=== PATIENT | female | born 1965 | race Caucasian/White ===

== ENCOUNTER 2017-11-16 16:37 | Inpatient (IN) | payer BC, OTHER ==
[~2017-11-16] VITALS: Ht 152.4 cm; Wt 76.2 kg
[~2017-11-16 16:37] MED LIST: CLC150 PO; IPRA1AER2 INH; LISI-461 PO; TPRSR/25 PO
[2017-11-16] MEDS ORDERED: ENOXAPARIN 1 MG/KG SQ SCH (17:00)
[2017-11-16] MEDS ORDERED: ALUMINUM/MAGNESIUM/SIMETH (MAALOX MAX) 30 ML UDC PO PRN (17:00)
[2017-11-16] MEDS ORDERED: ONDANSETRON INJ 2 MG/ML 2 ML VIAL IV PRN (17:00)
[2017-11-16] MEDS ORDERED: ACETAMINOPHEN 325 MG TAB PO PRN (17:00)
[2017-11-16] MEDS ORDERED: MAGNESIUM HYDROXIDE SUSP 30 ML UDC PO PRN (17:00)
[2017-11-16] MEDS ORDERED: NITROGLYCERIN 0.4 MG SL PER TAB CHARGE SL PRN (17:00)
[2017-11-16] MEDS ORDERED: POLYETHYLENE (MIRALAX) 17 GM PACK PO PRN (17:00)
[2017-11-16 17:29] VITALS: BP 134/71; PULSE 92; TEMP 36.5; O2SAT 93
[2017-11-16] MEDS ORDERED: PRED10TA PO (17:29)
[2017-11-16] MEDS ORDERED: IPRASOL4 INH (17:29)
[2017-11-16] MEDS ORDERED: SPRIN INH (17:29)
[2017-11-16] MEDS ORDERED: ADVIN25/60 INH (17:29)
[2017-11-16] MEDS ORDERED: AZIT250T PO (17:29)
[2017-11-16] MEDS ORDERED: PATIENT'S HEIGHT AND/OR WEIGHT NEEDED SCH (17:30)
[2017-11-16 17:32] VITALS: O2SAT 93
--- NOTE | 2017-11-16 17:35 | DIAGNOSTIC IMAGING REPORT ---
CHEST ONE VIEW PORTABLE CLINICAL HISTORY: SHORTNESS OF BREATH dyspnea COMPARISON STUDY: 12/10/2014 FINDINGS: The bones soft tissues and hemidiaphragms are normal. The cardiomediastinal silhouette is normal. The lungs are clear. The pulmonary vasculature is normal. IMPRESSION: Negative chest. The above report was generated using voice recognition software. It may contain grammatical, syntax or spelling errors. Electronically signed by: Tom Marcelo M.D. 11/16/2017 5:34 PM Dictated Date/Time: 11/16/2017 5:34 PM
[2017-11-16 17:38] VITALS: BP 134/71; PULSE 92; TEMP 36.5; Ht 152.4 cm; Wt 76.2 kg
--- NOTE | 2017-11-16 17:49 | History and Physical ---
History & Physical Date & Time of Service: November 16, 2017 at 17:31 Chief Complaint: Pulmonary Embolism Primary Care Physician: Pipo Baird III, M.D. History of Present Illness Source: patient, clinic records, hospital records Patient is a 52-year-old female with the PMH of COPD, tobacco use disorder, HTN , calcified granuloma on RUL and other medical problems listed below who presents from [facility]'s clinic with an acute pulmonary embolism. Patient went to [facility] acute care yesterday with reports of dyspnea on exertion with associated chest tightness and lightheadedness x 1.5 weeks. Has also had intermittent swelling of R cervical neck for the last few months. Has been using Spiriva, Advair and Combivent inhalers at home but was still experiencing dyspnea with any form of exertion. Was diagnosed with a COPD exacerbation and was given a DuoNeb and Decadron injection in the office. Was prescribed a Z pack and prednisone taper. Was ordered a CT neck and chest which were performed today, showing pulmonary emboli involving segmental and subsegmental branches supplying the RUL. Denies fever, chills, headache, near-syncope, confusion, visual changes, palpitations, abdominal pain, nausea, vomiting, dysuria, diarrhea, constipation or LE swelling. No personal history of DVT/PE. Is not an oral contraceptive. Denies any recent flights or long car trips. 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 Patient is interested in NOACs for continued treatment of PE. 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 (2) Cervical adenopathy Status: Chronic (3) COPD (chronic obstructive pulmonary disease) Status: Chronic (4) HTN (hypertension) Status: Chronic (5) Tobacco use disorder Status: Chronic Surgical Problems: (1) History of hysterectomy Status: Resolved Family History Cancer Diabetes mellitus Gallbladder disease Hypertension Kidney disease Lung disease Seizures Social History Smoking Status: Current Every Day Smoker (1-2 cigarettes daily ) Alcohol Use: socially (1-2 glasses of wine/night ) Housing status: lives with family Occupational Status: employed Immunizations History of Influenza Vaccine: No History of Tetanus Vaccine?: Yes History of Pneumococcal: Yes Pneumococcal Date: Jul 15, 2009 History of Hepatitis B Vaccine: Yes Allergies Coded Allergies: Latex1 -Allergic Contact Dermititis (Verified Allergy, Unknown, 12/05/14) Codeine (Verified Adverse Reaction, Mild, N/V, HEARS VIOCES, 12/05/14) NAUSEA/VOMITING; HEARS VOICES Home Medications Scheduled Azithromycin (Zithromax), 250 MG PO HS Fluticasone Prop/Salmeterol (Advair Diskus 250/50 60 Dose), 1 PUFF INH BID Lisinopril (Lisinopril), 10 MG PO DAILY Metoprolol Succinate (Metoprolol Succinate ER), 25 MG PO DAILY Prednisone Tab (Prednisone), 10 MG PO UD Tiotropium [place] (Spiriva Handihaler), 1 CAP INH DAILY Scheduled PRN Ipratropium-Albuterol (Combivent Respimat), 1 PUFF INH QID PRN for SOB/Wheezing Ipratropium-Albuterol (Duoneb), 1 TREATMENT INH Q4H PRN for SOB/Wheezing Review of Systems Ten systems reviewed and negative except as noted in the HPI. Physical Exam Vital Signs Date Time Temp Pulse Resp B/P (MAP) Pulse Ox O2 Delivery O2 Flow Rate FiO2 11/16/17 17:29 36.5 92 20 134/71 (92) 93 Room Air General Appearance: WD/WN, no apparent distress, + pertinent finding (Sitting upright in bed, conversational. ) Head: normocephalic, atraumatic Eyes: normal inspection, PERRL, sclerae normal ENT: normal ENT inspection, hearing grossly normal, pharynx normal Neck: supple, thyroid normal, trachea midline, + pertinent finding (R cervical adenopathy ) Respiratory/Chest: chest non-tender, lungs clear, normal breath sounds, no respiratory distress, no accessory muscle use Cardiovascular: regular rate, rhythm, no murmur, normal peripheral pulses Abdomen/GI: non tender, soft, no organomegaly, no pulsatile mass Back: normal inspection, no CVA tenderness Extremities/Musculoskelatal: normal inspection, no calf tenderness, no pedal edema Neurologic/Psych: no motor/sensory deficits, alert, normal mood/affect, oriented x 3 Skin: normal color, warm/dry, no rash Diagnostics Laboratory Results Results Past 24 Hours Test 11/16/17 17:22 Range/Units Diagnostic Radiology CXR: IMPRESSION: Negative chest. Out-patient CT chest with contrast (5/8/18): Findings consistent with pulmonary emboli involving segmental and subsegmental branches supplying the RUL. EKG Normal sinus rhythm. Early repolarization No change from prior EKG Impression Assessment and Plan Patient is a 52-year-old female with the PMH of COPD, tobacco use disorder, HTN , calcified granuloma on RUL and other medical problems listed below who presents from [facility] with an acute pulmonary embolism. Acute PE: -Dyspnea on exertion, chest tightness x 1.5 weeks -EKG without acute changes, troponin pending -Out-patient CT with pulmonary emboli involving segmental and subsegmental branches supplying the RUL -Hypercoagulability workup pending -Therapeutic Lovenox initiated -Interested in continued therapy with NOAC -Discharge planning ordered COPD: -Diagnosed with exacerbation yesterday but symptoms seem to be 2/2 PE -Leukocytosis of 16--likely steroid induced -Dry cough but lungs are clear, no wheezing -Discontinue Z pack, prednisone taper -Continue home inhalers Cervical adenopathy: -Intermittent left sided pain, swelling for past 8 months -CT neck with contrast performed today--result pending HTN: -Normotensive -Cont home lisinopril, Toprol Tobacco use disorder: -Recently decreased to 1-2 cigarettes a day -Interested in cessation DVT Ppx: Therapeutic dose lovenox Code status: FULL PCP: Oli Dispo: Admitted to telemetry. Plan to return home once medically stable. Discharge planning ordered. Patient seen in collaboration with Dr. Urrutia. Please see addendum. ATTENDING ADDENDUM Patient seen and examined care coordinated with Martha Bush PA-C This is a 52-year-old female with history of COPD sent from [facility] as CT chest with contrast showed evidence of pulmonary embolism Patient reports of having shortness of breath and not feeling well with cough and flulike symptoms for the past 2-3 weeks She pretty much remained sedentary Last Wednesday had a family trip to [place]/patient mentioned after arriving to [place] getting into the hotel patient was completely out of breath which is very unusual for her She was seen at [facility] yesterday Was empirically started with Zithromax and prednisone taper for possible COPD exacerbation CT chest with contrast shows pulmonary emboli involving segmental and sub- subsegmental branches supplying right upper lobe Patient remained stable hemodynamically Denies any pleuritic chest pain, no dizzy spells or lightheadedness No prior history of blood clots, no family history of clotting disorder Lower extremity Doppler shows left posterior tibial vein thrombosis Hypercoagulable workup sent Possibly provoked lower extremity DVT secondary to illness/recent long distance travel Patient was initially given therapeutic dose of Lovenox Discussed with patient interested to try NOAC's as without repeated blood work monitoring it will be suitable to her work and daily life Lovenox DC'd Patient will be started with Xarelto 15 mg twice daily for 21 days-afterwards 20 mg daily; if hypercoagulable workups are negative Patient will need 3-6 months of anticoagulation First dose will be tomorrow at 7 AM Social service consulted to assess the patient's insurance coverage for Xarelto Alesia Urrutia MD Resuscitation Status VTE Prophylaxis Will order VTE Prophylaxis: Yes Additional Copies To Pipo Baird III, M.D.
[2017-11-16 17:50] LABS: HEMATOCRIT 42.9 % (37-47); HEMOGLOBIN 15.2 g/dL (12.0-16.0); MEAN CELL VOLUME 95.1 fL (80-100); MEAN CORPUSCULAR HEMOGLOBIN 33.7 pg (25-34); MEAN PLATELET VOLUME 9.1 fL (7.4-10.4); PLATELET COUNT 234 K/uL (130-400); RED CELL DISTRIBUTION WIDTH CV 13.3 % (11.5-14.5); RED CELL DISTRIBUTION WIDTH SD 46.1 fL (36.4-46.3); WHITE BLOOD COUNT 16.02 K/uL (4.8-10.8)
[2017-11-16 18:00] LABS: MEAN CORPUSCULAR HGB CONC 35.4 g/dl (32-36)
[2017-11-16 18:11] LABS: INR 0.9 (0.9-1.1)
[2017-11-16] MEDS ORDERED: ENOXAPARIN 80 MG/0.8 ML SYR SQ ONE (18:15)
--- NOTE | 2017-11-16 18:54 | DIAGNOSTIC IMAGING REPORT ---
ULTRASOUND VENOUS DOPPLER LWR EXT BILA CLINICAL HISTORY: Pulmonary embolism COMPARISON STUDY: 12/09/2014 FINDINGS: On the right, no intraluminal thrombus was visualized. The veins are fully compressible from the groin to the popliteal fossa. There was normal color-flow within the proximal trifurcation veins of the right calf. On the left, no intraluminal thrombus is visualized within the common femoral superficial femoral or popliteal veins. There is thrombus within one of the paired posterior tibial veins. The anterior tibial and peroneal veins appear normal as visualized IMPRESSION: 1. Left leg posterior tibial vein DVT 2. No evidence of right lower extremity DVT Electronically signed by: Singh Maldonado M.D. 11/16/2017 6:52 PM Dictated Date/Time: 11/16/2017 6:50 PM
[2017-11-16] MEDS ORDERED: IPRATROPIUM BROMIDE/ALBUTEROL respimat INH INH PRN (19:00)
[2017-11-16] MEDS ORDERED: ALBUT/IPRATROP 3MG/0.5MG NEB 3 ML VIAL INH PRN (19:00)
[2017-11-16 20:00] VITALS: O2SAT 93
[2017-11-16] MEDS: FLUTICASONE/SALMETEROL 250/50 (ADVAIR) 14 PUFF/1 INHALER INH SCH (20:17)
[2017-11-16] MEDS ORDERED: RIVAROXABAN 20 MG TAB PO ONE (20:20)
[2017-11-16] MEDS ORDERED: XRL20 PO (20:26)
[2017-11-16 20:31] LABS: ALBUMIN 3.6 gm/dl (3.4-5.0); ALKALINE PHOSPHATASE 77 U/L (45-117); ALT/SGPT 46 U/L (12-78); BLOOD UREA NITROGEN 24 mg/dl (7-18); CALCIUM 8.3 mg/dl (8.5-10.1); CARBON DIOXIDE 23 mmol/L (21-32); CREATININE 1.23 mg/dl (0.60-1.20); GLUCOSE 123 mg/dl (70-99); SODIUM 140 mmol/L (136-145); TOTAL PROTEIN 7.4 gm/dl (6.4-8.2)
[2017-11-16] MEDS: SODIUM CHLORIDE 0.9% 1000ML 1,000 ML IV SCH (21:49)
[2017-11-16 23:10] VITALS: BP 119/77; PULSE 57; TEMP 36.6; O2SAT 93
[2017-11-16 23:59] VITALS: O2SAT 93
[2017-11-17] VITALS (8 sets, daily range): BP systolic 112–127; BP diastolic 74–83; PULSE 58–79; TEMP 36.4–36.9; O2SAT 93–96
[2017-11-17 01:01] LABS: POTASSIUM 3.5 mmol/L (3.5-5.1)
[2017-11-17 06:15] LABS: HEMATOCRIT 41.8 % (37-47); HEMOGLOBIN 13.9 g/dL (12.0-16.0); MEAN CELL VOLUME 96.3 fL (80-100); MEAN CORPUSCULAR HGB CONC 33.3 g/dl (32-36); MEAN PLATELET VOLUME 9.3 fL (7.4-10.4); PLATELET COUNT 196 K/uL (130-400); RED CELL DISTRIBUTION WIDTH CV 13.2 % (11.5-14.5); RED CELL DISTRIBUTION WIDTH SD 46.3 fL (36.4-46.3); WHITE BLOOD COUNT 11.35 K/uL (4.8-10.8)
[2017-11-17 06:48] LABS: CALCIUM 8.1 mg/dl (8.5-10.1)
[2017-11-17] MEDS: RIVAROXABAN TAB 15 MG TAB PO SCH ×2 (07:34→16:15)
[2017-11-17] MEDS: SODIUM CHLORIDE 0.9% 1000ML 1,000 ML IV SCH (07:35)
[2017-11-17] MEDS: LISINOPRIL 10 MG TAB PO SCH (08:47)
[2017-11-17] MEDS: METOPROLOL SUCC 25MG EXT REL TAB PO SCH (08:47)
[2017-11-17] MEDS: FLUTICASONE/SALMETEROL 250/50 (ADVAIR) 14 PUFF/1 INHALER INH SCH ×2 (08:47→20:52)
[2017-11-17] MEDS: TIOTROPIUM BROMIDE 5 PUFF/90 MCG INH INH SCH (08:48)
[2017-11-17] MEDS ORDERED: RIVAROXABAN 20 MG TAB PO SCH (09:00)
--- NOTE | 2017-11-17 10:39 | Progress Note ---
Internal Med Progress Note Date of Service: November 17, 2017. Provider Documentation: SUBJECTIVE: Seen and examined at bedside Denies any chest pain, SOB, dizziness Complains of chronic neck pain and swelling Denies dysphagia, odynophagia, erythema, fevers Counselled to quit smoking Reports chronic cough OBJECTIVE: Vital Signs-as noted below Physical Exam: General Appearance:Moderately built and nourished, no apparent distress Head: normocephalic, Atraumatic Eyes: normal inspection, EOMI, PERRL Neck: supple, Trachea midline, No obvious swelling, no erythema Respiratory/Chest: Normal breath sounds, CTA Cardiovascular: S1, S2, No murmur Abdomen/GI:Soft, Non tender, Bowel sounds present Extremities/Musculoskelatal:normal inspection, no edema Neurologic/Psych:AAOX3, grossly no focal neurological deficits Skin: normal color, warm Lab data as noted below. ASSESSMENT & PLAN: Patient is a 52-year-old female with the PMH of COPD, tobacco use disorder, HTN , calcified granuloma on RUL and other medical problems listed below who presents from [facility] clinic with an acute pulmonary embolism. Acute PE: Acute Left LE DVT: Presented with dyspnea on exertion, chest tightness x 1.5 weeks Out-patient CT with pulmonary emboli involving segmental and subsegmental branches supplying the RUL Hypercoagulability workup pending Therapeutic Lovenox Transitioned to Xarelto Counselled to quit smoking Information regarding Xarelto provided to patient rn social services consulted ECHO ordered COPD: No wheezing on exam Diagnosed with exacerbation yesterday by PCP but symptoms seem to be 2/2 PE Prednisone, Azithro discontinued Leukocytosis likely steroid induced, trending down Continue home inhalers Counselled to quit smoking Cervical Pain: ? swelling: Reports on and off symptoms since 6 months Denies dysphagia/Odynophagia, dental abscess, pain Neck CT : on 11/16/17 IMPRESSION 1. No neck mass or adenopathy is appreciated, including no left supraclavicular marlyn enlargement. 2. There is a stable appearing filling defect in the right upper lobe pulmonary artery consistent with patient's known pulmonary embolism. Advised to consider follow up with ENT as outpatient MATEO: Continue IV fluids Cr levels better monitor renal function HTN: Stable Continue home medications Tobacco use disorder: Recently decreased to 1-2 cigarettes a day Counselled to quit smoking DVT Px: On Xarelto Code status: Full Code Disposition: Plan to discharge home when stable rn social services consulted for discharge planning PCP: Oli. Patient prefers to change her PCP Vital Signs: Date Time Temp Pulse Resp B/P (MAP) Pulse Ox O2 Delivery O2 Flow Rate FiO2 11/17/17 08:45 36.8 79 20 127/83 (98) 93 Room Air 11/17/17 08:00 Room Air 11/17/17 04:00 93 Room Air 11/17/17 03:22 36.9 70 16 123/83 (96) 93 Room Air 11/16/17 23:59 93 Room Air 11/16/17 23:10 36.6 57 16 119/77 (91) 93 Room Air 11/16/17 20:00 93 Room Air 11/16/17 17:38 36.5 92 22 134/71 Room Air 11/16/17 17:32 93 Room Air 11/16/17 17:29 36.5 92 20 134/71 (92) 93 Room Air Lab Results: Results Past 24 Hours Test 11/16/17 17:22 11/16/17 21:56 11/17/17 00:19 11/17/17 05:41 Range/Units White Blood Count 16.02 11.35 4.8-10.8 K/uL Red Blood Count 4.51 4.34 4.2-5.4 M/uL Hemoglobin 15.2 13.9 12.0-16.0 g/dL Hematocrit 42.9 41.8 37-47 % Mean Corpuscular Volume 95.1 96.3 80-100 fL Mean Corpuscular Hemoglobin 33.7 32.0 25-34 pg Mean Corpuscular Hemoglobin Concent 35.4 33.3 32-36 g/dl RDW Standard Deviation 46.1 46.3 36.4-46.3 fL RDW Coefficient of Variation 13.3 13.2 11.5-14.5 % Platelet Count 234 196 130-400 K/uL Mean Platelet Volume 9.1 9.3 7.4-10.4 fL Prothrombin Time 9.8 10.5 9.0-12.0 SECONDS Prothromb Time International Ratio 0.9 1.0 0.9-1.1 Sodium Level 140 142 136-145 mmol/L Potassium Level 3.5 4.0 3.5-5.1 mmol/L Chloride Level 107 109 98-107 mmol/L Carbon Dioxide Level 23 29 21-32 mmol/L Anion Gap 4.0 3-11 mmol/L Blood Urea Nitrogen 24 22 7-18 mg/dl Creatinine 1.23 1.00 0.60-1.20 mg/dl Est Creatinine Clear Calc Drug Dose 47.3 58.2 ml/min Estimated GFR () 57.6 74.0 Estimated GFR (Non- 49.7 63.8 BUN/Creatinine Ratio 19.5 21.7 10-20 Random Glucose 123 111 70-99 mg/dl Calcium Level 8.3 8.1 8.5-10.1 mg/dl Total Bilirubin 0.5 0.2-1 mg/dl Aspartate Amino Transf (AST/SGOT) 27 15-37 U/L Alanine Aminotransferase (ALT/SGPT) 46 12-78 U/L Alkaline Phosphatase 77 45-117 U/L Total Protein 7.4 6.4-8.2 gm/dl Albumin 3.6 3.4-5.0 gm/dl Globulin 3.8 2.5-4.0 gm/dl Albumin/Globulin Ratio 1.0 0.9-2 Hepatitis C Antibody Screen NEG NEG Chemistry Specimen Hemolysis
--- NOTE | 2017-11-17 10:47 | Clinical Documentation Query ---
CLINICAL DOCUMENTATION QUERY Dr. NEWTON, In your clinical opinion is this patient being managed for: ( X ) Acute kidney failure ( ) Not Agree ( ) Other explanation of clinical findings (Please Explain. If no explanation given, this would be considered a no response.) ( ) Unable to determine ( ) Need to Discuss (Please call CDS via extension or qliq. If no interaction occurs this is considered a no response.) The medical record reflects the following clinical findings, treatment, and risk factors. Clinical Indicators: 52 yo female presenting with acute PE and DVT. Presenting BUN 24/Cr 1.23 which has trended down to 22/1.0. Review of historical Cr (2014) range showed 0.83-0.90 Treatment: IV fluids, monitor PRP's/Cr levels Risk Factors: COPD, HTN, acute PE, DVT Please clarify and document your clinical opinion in the progress notes and discharge summary. Terms such as "probable", "suspected", "likely", "questionable", "possible", or "still to be ruled out" are acceptable. IF IN AGREEMENT, YOU MUST DOCUMENT ABOVE DIAGNOSTIC STATEMENT IN DAILY PROGRESS NOTES AND DISCHARGE SUMMARY. This document is not part of the patient's record. Thank You, Radha Herandez RN [phone]
--- NOTE | 2017-11-17 16:20 | ECHOCARDIOGRAM REPORT ---
*NOTICE TO RECEIVING DEMOCRAT AGENCY This information is strictly Confidential and protected under [place] law. [place] law prohibits you from making any further disclosure of this information unless further disclosure is expressly permitted by the written consent of the person to whom it pertains or is authorized by law. A general authorization for the release of medical or other information is not sufficient for this purpose. Hospital accepts no responsibility if the information is made available to any other person, INCLUDING THE PATIENT. Interpretation Summary * Name: MARCELINO CORLEY Study Date: 11/17/2017 11:12 AM BP: 112/74 mmHg * Patient Location: C.2T\S\S232\S\1 HR: 59 * : 1965 (M/d/yyyy) Gender: Female Height: 60 in * Age: 52 yrs Ethnicity: CA Weight: 165 lb * Ordering Physician: Som Colbert * Referring Physician: Sommer Yoon PA-C * Performed By: Susan Kennedy RCS * * Reason For Study: PULMONARY EMBOLISM * BSA: 1.7 m2 * -- Conclusions -- * Normal LV chamber size with mild concentric LVH. * Normal LV systolic function, EF 60-65%. * No segmental left ventricular wall motion abnormalities are noted. * Grade I diastolic dysfunction. * The right ventricular cavity size is normal (basal dimension <4.2 cm in right ventricular apical 4-chamber view). * The right ventricular systolic function is normal as assessed by tricuspid annular plane systolic excursion (TAPSE) (normal >1.5 cm). * No significant valvular pathology. Procedure Details * A complete two-dimensional transthoracic echocardiogram was performed (2D, M-mode, Doppler and color flow Doppler). Left Ventricle * The left ventricle is normal in size. * There is mild concentric left ventricular hypertrophy. * Left ventricular systolic function is normal. * No segmental left ventricular wall motion abnormalities are noted. * Ejection Fraction = 60-65%. * The left ventricular wall motion is normal. Right Ventricle * The right ventricular cavity size is normal (basal dimension <4.2 cm in right ventricular apical 4-chamber view). * The right ventricular systolic function is normal as assessed by tricuspid annular plane systolic excursion (TAPSE) (normal >1.5 cm). Atria * The left atrial size is normal. * Right atrial size is normal. * No ASD detected; PFO is not assessed. Mitral Valve * The mitral valve is normal in structure and function. Tricuspid Valve * The tricuspid valve is normal in structure and function. Aortic Valve * The aortic valve is not well visualized. * No hemodynamically significant valvular aortic stenosis. * There is no significant aortic regurgitation. Pulmonic Valve * The pulmonary valve is not well seen, but the Doppler examination is normal without significant regurgitation or stenosis. Great Vessels * The aortic root is normal size. Pericardium/Pleural * There is no pericardial effusion. Left Ventricular Diastolic Function * Grade I diastolic dysfunction, (abnormal relaxation pattern). MMode 2D Measurements and Calculations IVSd 1.4 cm IVSs 1.4 cm LVIDd 4.1 cm LVIDs 3.0 cm LVPWd 1.1 cm LVPWs 1.5 cm IVS/LVPW 1.3 FS 26.9 % EDV(Teich) 72.2 ml ESV(Teich) 34.0 ml EF(Teich) 53.0 % EDV(cubed) 66.6 ml ESV(cubed) 26.0 ml EF(cubed) 60.9 % % IVS thick -3.26 % % LVPW thick 36.7 % LV mass(C)d 181.6 grams LV mass(C)dI 105.6 grams/m\S\2 LV mass(C)s 143.9 grams LV mass(C)sI 83.7 grams/m\S\2 SV(Teich) 38.3 ml SI(Teich) 22.2 ml/m\S\2 SV(cubed) 40.6 ml SI(cubed) 23.6 ml/m\S\2 Ao root diam 2.9 cm Ao root area 6.8 cm\S\2 ACS 1.5 cm LA dimension 2.8 cm LA/Ao 0.95 LVOT diam 2.0 cm LVOT area 3.2 cm\S\2 LVAd ap4 23.1 cm\S\2 LVLd ap4 6.4 cm EDV(MOD-sp4) 69.1 ml EDV(sp4-el) 71.3 ml LVAs ap4 15.3 cm\S\2 LVLs ap4 5.4 cm ESV(MOD-sp4) 35.6 ml ESV(sp4-el) 36.6 ml EF(MOD-sp4) 48.4 % EF(sp4-el) 48.7 % LVAd ap2 22.6 cm\S\2 LVLd ap2 6.4 cm EDV(MOD-sp2) 65.6 ml EDV(sp2-el) 67.9 ml LVAs ap2 15.1 cm\S\2 LVLs ap2 5.5 cm ESV(MOD-sp2) 34.3 ml ESV(sp2-el) 35.1 ml EF(MOD-sp2) 47.8 % EF(sp2-el) 48.2 % LVLd %diff 0.81 % EDV(MOD-bp) 67.7 ml LVLs %diff 1.9 % ESV(MOD-bp) 35.2 ml EF(MOD-bp) 48.0 % SV(MOD-sp4) 33.5 ml SI(MOD-sp4) 19.5 ml/m\S\2 SV(MOD-sp2) 31.3 ml SI(MOD-sp2) 18.2 ml/m\S\2 SV(MOD-bp) 32.5 ml SI(MOD-bp) 18.9 ml/m\S\2 SV(sp4-el) 34.7 ml SI(sp4-el) 20.2 ml/m\S\2 SV(sp2-el) 32.7 ml SI(sp2-el) 19.0 ml/m\S\2 Doppler Measurements and Calculations MV E max alexandra 66.3 cm/sec MV A max alexandra 86.3 cm/sec MV E/A 0.77 MV P1/2t max alexandra 75.1 cm/sec MV P1/2t 70.0 msec MVA(P1/2t) 3.1 cm\S\2 MV dec slope 314.3 cm/sec\S\2 MV dec time 0.19 sec Ao V2 max 97.5 cm/sec Ao max PG 3.8 mmHg Ao max PG (full) 0.67 mmHg SHERI(V,A) 2.9 cm\S\2 SHERI(V,D) 2.9 cm\S\2 LV V1 max PG 3.1 mmHg LV V1 max 88.4 cm/sec PA V2 max 56.1 cm/sec PA max PG 1.3 mmHg TR max alexandra 231.7 cm/sec
[2017-11-18] VITALS (7 sets, daily range): BP systolic 127–144; BP diastolic 80–87; PULSE 52–66; TEMP 36.4–36.5; O2SAT 93–96
[2017-11-18] MEDS: SODIUM CHLORIDE 0.9% 1000ML 1,000 ML IV SCH (03:54)
[2017-11-18 06:40] LABS: HEMATOCRIT 38.8 % (37-47); HEMOGLOBIN 13.3 g/dL (12.0-16.0); MEAN CELL VOLUME 95.1 fL (80-100); MEAN CORPUSCULAR HEMOGLOBIN 32.6 pg (25-34); MEAN CORPUSCULAR HGB CONC 34.3 g/dl (32-36); PLATELET COUNT 175 K/uL (130-400); RED CELL DISTRIBUTION WIDTH SD 44.8 fL (36.4-46.3); WHITE BLOOD COUNT 6.59 K/uL (4.8-10.8)
[2017-11-18 07:10] LABS: CALCIUM 7.9 mg/dl (8.5-10.1); CREATININE 0.78 mg/dl (0.60-1.20); POTASSIUM 4.1 mmol/L (3.5-5.1)
[2017-11-18] MEDS: LISINOPRIL 10 MG TAB PO SCH (07:18)
[2017-11-18] MEDS: FLUTICASONE/SALMETEROL 250/50 (ADVAIR) 14 PUFF/1 INHALER INH SCH (07:18)
[2017-11-18] MEDS: RIVAROXABAN TAB 15 MG TAB PO SCH (07:18)
[2017-11-18] MEDS: METOPROLOL SUCC 25MG EXT REL TAB PO SCH (07:18)
[2017-11-18] MEDS: TIOTROPIUM BROMIDE 5 PUFF/90 MCG INH INH SCH (07:18)
--- NOTE | 2017-11-18 11:36 | Progress Note ---
Internal Med Progress Note Date of Service: November 18, 2017. Provider Documentation: SUBJECTIVE: Seen and examined at bedside Doing well today Denies any chest pain, SOB, dizziness Complains of chronic neck pain and swelling Denies dysphagia, odynophagia, erythema, fevers No other complaints OBJECTIVE: Vital Signs-as noted below Physical Exam: General Appearance:Moderately built and nourished, no apparent distress Head: normocephalic, Atraumatic Eyes: normal inspection, EOMI, PERRL Neck: supple, Trachea midline, No obvious swelling, no erythema Respiratory/Chest: Normal breath sounds, CTA Cardiovascular: S1, S2, No murmur Abdomen/GI:Soft, Non tender, Bowel sounds present Extremities/Musculoskelatal:normal inspection, no edema Neurologic/Psych:AAOX3, grossly no focal neurological deficits Skin: normal color, warm Lab data as noted below. ASSESSMENT & PLAN: Patient is a 52-year-old female with the PMH of COPD, tobacco use disorder, HTN , calcified granuloma on RUL and other medical problems listed below who presents from [facility] with an acute pulmonary embolism. 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 swelling: Reports on and off symptoms since 6 months Denies dysphagia/Odynophagia, dental abscess, pain Advised to consider follow up with ENT/Dentist as outpatient Neck CT : on 11/16/17 IMPRESSION 1. No neck mass or adenopathy is appreciated, including no left supraclavicular marlyn enlargement. 2. There is a stable appearing filling defect in the right upper lobe pulmonary artery consistent with patient's known pulmonary embolism. MATEO:Resolved DC IVF monitor renal function HTN: Stable Continue home medications Tobacco use disorder: Recently decreased to 1-2 cigarettes a day Counselled to quit smoking Refused Nicotine patches upon discharge DVT Px: On Xarelto Code status: Full Code Disposition: Plan to discharge home today Follow up with your PCP on 11/22/17 at 1:45pm Continue taking Xarelto (Started on 11/17/17): 15mg twice a day for 21 days from start date then switch to 20mg daily once a day. Watch for bleeding issues as advised Seek immediate medical attention if your symptoms reoccur or worsen Follow up with your doctor regarding Hypercoagulability work up(which is pending ) and discuss with your doctor regarding the duration of Xarelto needed for your treatment PROCEDURES ECHO: Normal LV chamber size with mild concentric LVH. * Normal LV systolic function, EF 60-65%. * No segmental left ventricular wall motion abnormalities are noted. * Grade I diastolic dysfunction. * The right ventricular cavity size is normal (basal dimension <4.2 cm in right ventricular apical 4-chamber view). * The right ventricular systolic function is normal as assessed by tricuspid annular plane systolic excursion (TAPSE) (normal >1.5 cm). * No significant valvular pathology. Vital Signs: Date Time Temp Pulse Resp B/P (MAP) Pulse Ox O2 Delivery O2 Flow Rate FiO2 11/18/17 08:00 Room Air 11/18/17 07:17 36.5 66 16 127/80 (96) 96 Room Air 11/18/17 04:09 36.4 52 18 128/87 (101) 94 Room Air 11/18/17 04:00 96 Room Air 11/18/17 00:11 36.4 53 18 128/84 (99) 93 Room Air 11/18/17 00:00 96 Room Air 11/17/17 20:00 96 Room Air 11/17/17 19:19 36.6 58 19 126/83 (97) 95 Room Air 11/17/17 16:00 95 Room Air 11/17/17 15:31 36.5 59 18 120/80 (93) 95 Room Air 11/17/17 12:00 Room Air 11/17/17 11:42 36.4 61 16 112/74 (87) 94 Room Air Lab Results: Results Past 24 Hours Test 11/18/17 06:04 Range/Units White Blood Count 6.59 4.8-10.8 K/uL Red Blood Count 4.08 4.2-5.4 M/uL Hemoglobin 13.3 12.0-16.0 g/dL Hematocrit 38.8 37-47 % Mean Corpuscular Volume 95.1 80-100 fL Mean Corpuscular Hemoglobin 32.6 25-34 pg Mean Corpuscular Hemoglobin Concent 34.3 32-36 g/dl RDW Standard Deviation 44.8 36.4-46.3 fL RDW Coefficient of Variation 13.0 11.5-14.5 % Platelet Count 175 130-400 K/uL Mean Platelet Volume 9.0 7.4-10.4 fL Prothrombin Time 10.8 9.0-12.0 SECONDS Prothromb Time International Ratio 1.0 0.9-1.1 Sodium Level 142 136-145 mmol/L Potassium Level 4.1 3.5-5.1 mmol/L Chloride Level 109 98-107 mmol/L Carbon Dioxide Level 27 21-32 mmol/L Anion Gap 6.0 3-11 mmol/L Blood Urea Nitrogen 16 7-18 mg/dl Creatinine 0.78 0.60-1.20 mg/dl Est Creatinine Clear Calc Drug Dose 75.2 ml/min Estimated GFR () 99.9 Estimated GFR (Non- 86.2 BUN/Creatinine Ratio 20.2 10-20 Random Glucose 97 70-99 mg/dl Calcium Level 7.9 8.5-10.1 mg/dl Magnesium Level 2.1 1.8-2.4 mg/dl
[2017-11-18] MEDS ORDERED: XRL20 PO (11:41)
[2017-11-18] MEDS ORDERED: XRL15 PO (11:43)
--- NOTE | 2017-11-18 11:46 | Discharge Summary ---
Discharge Summary Date of Service November 18, 2017. Discharge Summary Admission Date: November 16, 2017 at 16:48 Discharge Date: November 18, 2017 Discharge Disposition: Home Principal Diagnosis: Acute Pulmonary Embolism, Acute DVT Procedures: Venous Doppler: 1. Left leg posterior tibial vein DVT 2. No evidence of right lower extremity DVT ECHO: Normal LV chamber size with mild concentric LVH. * Normal LV systolic function, EF 60-65%. * No segmental left ventricular wall motion abnormalities are noted. * Grade I diastolic dysfunction. * The right ventricular cavity size is normal (basal dimension <4.2 cm in right ventricular apical 4-chamber view). * The right ventricular systolic function is normal as assessed by tricuspid annular plane systolic excursion (TAPSE) (normal >1.5 cm). * No significant valvular pathology. Consultations: None Pending Studies/Follow-Up: Follow up with your PCP on 11/22/17 at 1:45pm Continue taking Xarelto (Started on 11/17/17): 15mg twice a day for 21 days from start date then switch to 20mg daily once a day. Watch for bleeding issues as advised Seek immediate medical attention if your symptoms reoccur or worsen Follow up with your doctor regarding Hypercoagulability work up(which is pending ) and discuss with your doctor regarding the duration of Xarelto needed for your treatment Medication Reconciliation New Medications: Rivaroxaban (Xarelto) 20 Mg Tab 20 MG PO DAILY for 30 Days, #30 TABS Start taking from 12/08/17 after completing the intial dose of 15mg BID for 21 days Rivaroxaban (Xarelto) 15 Mg Tab 15 MG PO BID for 20 Days, #40 TABS Xarelto started on 11/17/17. Take 15mg twice a day for 20 more days and then switch to 20mg daily Continued Medications: Fluticasone Prop/Salmeterol (Advair Diskus 250/50 60 Dose) 1 Ea Aerp 1 PUFF INH BID, INHALER Ipratropium-Albuterol (Combivent Respimat) 1 Aer Aer 1 PUFF INH QID PRN for SOB/Wheezing, INH Ipratropium-Albuterol (Duoneb) 3 Ml Nebu 1 TREATMENT INH Q4H PRN for SOB/Wheezing, INHA Lisinopril (Lisinopril) 10 Mg Tab 10 MG PO DAILY Metoprolol Succinate (Metoprolol Succinate ER) 25 Mg Tabcr 25 MG PO DAILY Tiotropium [place] (Spiriva Handihaler) 5 Puff/90 Mcg Aerp 1 CAP INH DAILY Discontinued Medications: Azithromycin (Zithromax) 250 Mg Tab 250 MG PO HS, #4 TAB On day #2 of 5 days Prednisone Tab (Prednisone) 10 Mg Tab 10 MG PO UD, TAB Take 5 tabs today, then 4 tabs x 2 days, then 3 tabs x 2 days, then 2 tabs x 2 days, then 1 tab x 2 days Admission Information HPI (per Admitting provider): Patient is a 52-year-old female with the PMH of COPD, tobacco use disorder, HTN , 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 Patient went to [facility] acute care yesterday with reports of dyspnea on exertion with associated chest tightness and lightheadedness x 1.5 weeks. Has also had intermittent swelling of R cervical neck for the last few months. Has been using Spiriva, Advair and Combivent inhalers at home but was still experiencing dyspnea with any form of exertion. Was diagnosed with a COPD exacerbation and was given a DuoNeb and Decadron injection in the office. Was prescribed a Z pack and prednisone taper. Was ordered a CT neck and chest which were performed today, showing pulmonary emboli involving segmental and subsegmental branches supplying the RUL. Denies fever, chills, headache, near-syncope, confusion, visual changes, palpitations, abdominal pain, nausea, vomiting, dysuria, diarrhea, constipation or LE swelling. No personal history of DVT/PE. Is not an oral contraceptive. Denies any recent flights or long car trips. 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 Patient is interested in NOACs for continued treatment of PE. Physical Exam (per Admitting): General Appearance: WD/WN, no apparent distress, + pertinent finding ( Sitting upright in bed, conversational. ) Head: normocephalic, atraumatic Eyes: normal inspection, PERRL, sclerae normal ENT: normal ENT inspection, hearing grossly normal, pharynx normal Neck: supple, thyroid normal, trachea midline, + pertinent finding (R cervical adenopathy ) Respiratory/Chest: chest non-tender, lungs clear, normal breath sounds, no respiratory distress, no accessory muscle use Cardiovascular: regular rate, rhythm, no murmur, normal peripheral pulses Abdomen/GI: non tender, soft, no organomegaly, no pulsatile mass Back: normal inspection, no CVA tenderness Extremities/Musculoskelatal: normal inspection, no calf tenderness, no pedal edema Neurologic/Psych: no motor/sensory deficits, alert, normal mood/affect, oriented x 3 Skin: normal color, warm/dry, no rash Hospital Course Patient is a 52-year-old female with the PMH of COPD, tobacco use disorder, HTN , 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 Acute PE: Acute Left LE DVT: Presented with dyspnea on exertion, chest tightness x 1.5 weeks Out-patient CT with pulmonary emboli involving segmental and subsegmental branches supplying the RUL Hypercoagulability workup pending Therapeutic Lovenox Transitioned to Xarelto started on 11/17/17 Counselled to quit smoking Information regarding Xarelto provided to patient conference services coordinator consulted ECHO as below COPD: No wheezing on exam Diagnosed with exacerbation yesterday by PCP but symptoms seem to be 2/2 PE Prednisone, Azithro discontinued Leukocytosis normalized Continue home inhalers Counselled to quit smoking Cervical Pain: ? swelling: Reports on and off symptoms since 6 months Denies dysphagia/Odynophagia, dental abscess, pain Advised to consider follow up with ENT/Dentist as outpatient Neck CT : on 11/16/17 IMPRESSION 1. No neck mass or adenopathy is appreciated, including no left supraclavicular marlyn enlargement. 2. There is a stable appearing filling defect in the right upper lobe pulmonary artery consistent with patient's known pulmonary embolism. MATEO:Resolved DC IVF monitor renal function HTN: Stable Continue home medications Tobacco use disorder: Recently decreased to 1-2 cigarettes a day Counselled to quit smoking Refused Nicotine patches upon discharge DVT Px: On Xarelto Code status: Full Code Disposition: Plan to discharge home today Follow up with your PCP on 11/22/17 at 1:45pm Continue taking Xarelto (Started on 11/17/17): 15mg twice a day for 21 days from start date then switch to 20mg daily once a day. Watch for bleeding issues as advised Seek immediate medical attention if your symptoms reoccur or worsen Follow up with your doctor regarding Hypercoagulability work up(which is pending ) and discuss with your doctor regarding the duration of Xarelto needed for your treatment PROCEDURES ECHO: Normal LV chamber size with mild concentric LVH. * Normal LV systolic function, EF 60-65%. * No segmental left ventricular wall motion abnormalities are noted. * Grade I diastolic dysfunction. * The right ventricular cavity size is normal (basal dimension <4.2 cm in right ventricular apical 4-chamber view). * The right ventricular systolic function is normal as assessed by tricuspid annular plane systolic excursion (TAPSE) (normal >1.5 cm). * No significant valvular pathology. Total time spent on discharge = 34 minutes This includes examination of the patient, discharge planning, medication reconciliation, and communication with other providers. Discharge Instructions Discharge Instructions Date of Service November 18, 2017. Admission Reason for Admission: Pulmonary Embolism Discharge Discharge Diagnosis / Problem: Acute Pulmonary Embolism, Acute DVT Discharge Goals Goal(s): Decrease discomfort, Improve function Activity Recommendations Activity Limitations: resume your previous activity Exercise/Sports Limitations: as tolerated . Instructions / Follow-Up Instructions / Follow-Up Follow up with your PCP on 11/22/17 at 1:45pm Continue taking Xarelto (Started on 11/17/17): 15mg twice a day for 21 days from start date then switch to 20mg daily once a day. Watch for bleeding issues as advised Seek immediate medical attention if your symptoms reoccur or worsen Follow up with your doctor regarding Hypercoagulability work up(which is pending ) and discuss with your doctor regarding the duration of Xarelto needed for your treatment Current Hospital Diet Patient's current hospital diet: Regular Diet Discharge Diet Recommended Diet: Regular Diet Pending Studies Studies pending at discharge: yes List of pending studies: Hypercoagubility work up Medical Emergencies . Who to Call and When: Medical Emergencies: If at any time you feel your situation is an emergency, please call 911 immediately. . Non-Emergent Contact Non-Emergency issues call your: Primary Care Provider Call Non-Emergent contact if: you have a fever, your pain is not controlled, your pain is worsening, your pain is unusual for you, your pain is concerning you, you have any medication questions Seek immediate medical attention if your symptoms reoccur or worsen . . "Provider Documentation" section prepared by Som Colbert. . <Electronically signed by Som Colbert MD> Signed: 11/18/17 1145 Signed: The status of this report is Signed * If report status is Draft, the document has not been finalized by the responsible provider.
== END 2017-11-18 13:01 | disposition home or self-care (01) | DRG 299 ==
LOC: C.2T 16:48
PROVIDERS: ADMIT Hospitalist; ATTEND Internal Medicine
DX: I82.442 Acute embolism and thrombosis of left tibial vein (principal); I26.99 Other pulmonary embolism without acute cor pulmonale; M54.2 Cervicalgia; J44.9 Chronic obstructive pulmonary disease, unspecified; I10 Essential (primary) hypertension; F17.210 Nicotine dependence, cigarettes, uncomplicated; Z51.81 Encounter for therapeutic drug level monitoring; Z79.899 Other long term (current) drug therapy; Z88.5 Allergy status to narcotic agent; Z91.040 Latex allergy status; Z82.49 Family history of ischemic heart disease and other diseases of the circulatory system; Z83.3 Family history of diabetes mellitus; Z84.89 Family history of other specified conditions

== ENCOUNTER 2023-11-13 14:35 | Inpatient (IN) ==
[2023-11-13] MEDS: ALBUT/IPRATROP 3MG/0.5MG NEB 3 ML VIAL NEB STA ×3 (15:26→17:21)
[2023-11-13] MEDS: methylPREDNISolone 125 MG/2 ML VIAL IV STA (15:26)
[2023-11-13 15:32] LABS: Basophils # (auto) 0.04 K/uL (0.00-0.20); Basophils % (auto) 0.6 %; Eosinophils # (auto) 0.11 K/uL (0.00-0.50); Eosinophils % (auto) 1.6 %; Hematocrit (blood only) 44.6 % (37.0-47.0); Hemoglobin 15.3 g/dl (12.0-16.0); Immature Granulocytes # (auto) 0.02 K/uL (0.01-0.20); Immature Granulocytes % (auto) 0.3 %; Lymphocytes # (auto) 2.12 K/uL (1.20-3.40); Mean Corpuscular Hemoglobin 32.6 pg (25.0-34.0); Mean Corpuscular Hgb Conc 34.3 g/dL (32.0-36.0); Mean Corpuscular Volume 94.9 fL (80.0-100.0); Mean Platelet Volume 9.2 fL (9.4-12.4); Monocytes # (auto) 0.37 K/uL (0.11-0.59); Monocytes % (auto) 5.2 %; Neutrophils # (auto) 4.41 K/uL (1.40-6.50); Neutrophils % (auto) 62.3 %; Platelet Count 185 K/uL (130-400); RDW Coefficient of Variation 12.1 % (11.5-14.5); RDW Standard Deviation 42.3 fL (36.4-46.3); White Blood Count 7.07 K/ul (4.8-10.8)
[2023-11-13 15:47] LABS: Albumin Globulin Ratio 1.7 (0.9-2); Albumin Level 4.1 gm/dl (3.4-5.0); BUN Creatinine Ratio 22.8 (10-20); Bilirubin,Total 0.5 mg/dl (0.2-1.0); Calcium 8.9 mg/dl (8.6-10.3); Creatinine Clr Calc Pharmacy 70.7 ml/min; Est GFR (African American) 94.3 ml/min; Est GFR (Non-African American) 81.4 ml/min; Globulin 2.4 gm/dl (2.5-4.0); Potassium 4.2 mmol/L (3.5-5.1); Total Protein 6.5 gm/dl (6.0-8.3)
[2023-11-13 15:50] LABS: Base Excess VBG 5.3 mEq/L; HCO3 VBG 31 mmol/L; PCO2 VBG 49 mmHg (38-50); PO2 VBG 77 mmHg; pH VBG 7.41 (7.36-7.41)
[2023-11-13 15:54] LABS: Troponin I High Sensitivity 8.6 pg/ml (0-14)
--- NOTE | 2023-11-13 16:11 | XRay Report ---
SINGLE VIEW CHEST CLINICAL HISTORY: Atypical chest pain. FINDINGS: An AP, portable, upright chest radiograph is compared to study dated 06/22/2021 and correla jasbir with chest CT dated 01/26/2023. The examination is degraded by portable technique and apical lordo tic positioning. The heart is mildly enlarged noting atherosclerotic calcification of the thoracic ao rta. The pulmonary vasculature is noncongested. Emphysema and chronic interstitial thickening is ara lar to previous. There is mild bibasilar scarring/atelectasis. The lungs and pleural spaces are other storm clear. No pneumothorax is seen. The skeletal structures are osteopenic. The bony thorax is gross ly intact. IMPRESSION: Cardiomegaly and emphysema with no active disease in the chest. ACT 112: Negative or not required by law. Electronically signed by: Charli Armstrong M.D. 11/13/2023 4:08 PM
[2023-11-13 16:15] LABS: INR 0.9 (0.9-1.1); Partial Thromboplastin Ratio 0.9; Partial Thromboplastin Time 23 Seconds (21-31); Prothrombin Time 9.8 Seconds (9.0-12.0)
[2023-11-13 16:26] LABS: Adenovirus PCR Not Detected (NotDetected); Bordetella parapertussis PCR Not Detected (NotDetected); Bordetella pertussis PCR Not Detected (NotDetected); Chlamydia pneumoniae PCR Not Detected (NotDetected); Coronavirus 229E PCR Not Detected (NotDetected); Coronavirus CoV-2 (COVID19)PCR Not Detected (NotDetected); Coronavirus HKU1 PCR Not Detected (NotDetected); Coronavirus NL63 PCR Not Detected (NotDetected); Coronavirus OC43PCR Not Detected (NotDetected); Human Metapneumovirus PCR Not Detected (NotDetected); Influenza A PCR Not Detected (NotDetected); Influenza B PCR Not Detected (NotDetected); Mycoplasma pneumoniae PCR Not Detected (NotDetected); Parainfluenza Virus 1 PCR Not Detected (NotDetected); Parainfluenza Virus 2 PCR Not Detected (NotDetected); Parainfluenza Virus 3 PCR Not Detected (NotDetected); Parainfluenza Virus 4 PCR Not Detected (NotDetected); Respiratory Syncytial VirusPCR Not Detected (NotDetected); Rhinovirus/Enterovirus PCR Not Detected (NotDetected)
[2023-11-13 16:32] LABS: D Dimer 2480 ug/L FEU (0-500)
[2023-11-13] MEDS: OPTIRAY 320 125ml IV ONE (16:58)
--- NOTE | 2023-11-13 17:13 | CT Scan Report ---
CT ANGIOGRAM OF THE CHEST CLINICAL HISTORY: Atypical chest pain. COMPARISON STUDY: Chest x-ray dated 11/13/2023. Chest CT dated 01/26/2023. TECHNIQUE: Following the IV administration of 119 cc of Optiray 320, CT angiogram of the chest was pe rformed from the upper abdomen to the thoracic inlet utilizing the pulmonary embolus protocol. Images are reviewed in the axial, sagittal, and coronal planes. 3-D MIPS images are created and assessed. I V contrast was administered without complication. A dose lowering technique was utilized adhering to the principles of ALARA. CT DOSE: 652.48 mGy.cm FINDINGS: Thyroid: Imaged portions of the thyroid gland are normal in size and attenuation. Thoracic aorta: The thoracic aorta is normal in caliber and demonstrates standard 3-vessel arch anato my. No dissection is seen. Pulmonary vasculature: The pulmonary trunk is normal in caliber. There are no filling defects identif ied in main, lobar, or segmental pulmonary branches to suggest pulmonary embolus. Heart: The heart is normal in size and without pericardial effusion. Lungs and pleural spaces: There is no airspace consolidation or pleural effusion. The trachea and jean-claude tral airways are clear. A calcified granuloma is seen in the right upper lobe. A 4 mm left upper lobe pulmonary nodule image #136 is unchanged. Mediastinum: There is no mediastinal lymphadenopathy. Gela: Clear. Axillae: There is no axillary lymphadenopathy. Upper abdomen: Partially visualized upper abdominal viscera is within normal limits. Skeletal structures: No lytic or blastic bony lesions are seen. Soft tissues: Bilateral breast implants are in place. IMPRESSION: 1. There is no evidence of pulmonary embolus in the main, lobar, or segmental pulmonary arteries. 2. The lungs are clear. 3. Additional findings as above. ACT 112: Negative or not required by law. Electronically signed by: Charli Armstrong M.D. 11/13/2023 5:10 PM
[2023-11-13] MEDS ORDERED: ACETAMINOPHEN 325 MG TAB PO PRN (18:33)
[2023-11-13] MEDS ORDERED: ALUMINUM/MAGNESIUM SUSP 30 ML UDC PO PRN (18:33)
[2023-11-13] MEDS ORDERED: ONDANSETRON INJ 2 MG/ML 2 ML VIAL IV PRN (18:33)
[2023-11-13] MEDS ORDERED: POLYETHYLENE (MIRALAX) 17 GM PACK PO PRN (18:33)
--- NOTE | 2023-11-13 18:49 | History & Physical Report ---
Date of Service November 13, 2023 Assessment & Plan (1) COPD exacerbation: Plan COPD exacerbation Patient presenting with progressive worsening of shortness of breath associated with wheezing and dry cough. Admitting CTA chest and CXR with no acute finding. Admitting labs fairly WNL, VBG WNL, respiratory pathogen panel negative. Patient found relief after medications and steroid administration in the ED. Continue with IV Solu-Medrol, scheduled nebs with DuoNeb/budesonide/formoterol. Scheduled Mucinex. Follow clinical response. Add azithromycin. Likely chronic elevation of d dimer: CTA chest neg. D dimer elevated at presentation, was elevated in the past as well. Other chronic medical conditions: HTN -continue with/resume home meds as and when able. DVT prophylaxis: Lovenox Full code History of Present Illness Chief Complaint: Worsening shortness of breath Primary Care Provider: Pipo Baird MD 58-year-old lady with PMH of COPD, PE not on anticoagulation [patient states physician discontinued Xarelto in the past], HTN presented to the ED with shortness of breath for 1 week. Patient reports initially her shortness of breath would be relieved with medication/home inhalers and rescue inhalers. Gradually shortness of breath progressed, she was getting short of breath with minimal activity, and finally rescue inhaler would not provide her relief and hence he presented to the ED. She denies sore throat, reports cough since 1 day, dry in nature. She reports chest tightness and occasional wheezing. She reports appetite being okay, denies any acute changes in her bowel or bladder habit. Denies any headache or dizziness or chest pain or febrile episode. She reports she still smokes 3 to 4 cigarettes a day, has been smoking since age 15. Reports drinking 2 to 3 glasses of wine a day, denies recreational drug use. 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 Medications were discussed with the patient at bedside. Plan of care were discussed with the patient and her at bedside, they voiced understanding and were agreeable to plan of care. Full code Allergies Allergy/AdvReac Type Severity Reaction Status Date / Time latex Allergy Unknown Verified 01/27/22 08:49 codeine AdvReac Mild N/V, HEARS Verified 01/27/22 08:49 VIOCES Home Medications Medication Instructions Recorded Confirmed Type albuterol sulfate 1.25 mg/3 mL 1.25 mg (3 mL) inhalation Q6H PRN 08/29/18 11/13/23 Rx solution for nebulization shortness of breath or wheezing #90 mL fluticasone 250 mcg-salmeterol 50 1 puff inhalation BID 08/29/18 11/13/23 History mcg/dose blistr powdr for inhalation lisinopril 10 mg tablet 10 mg PO QAM 08/29/18 11/13/23 History metoprolol succinate 25 mg 25 mg PO QAM 08/29/18 11/13/23 History tablet,extended release 24 hr tiotropium bromide 18 mcg capsule 1 cap inhalation QAM 08/29/18 11/13/23 History with inhalation device albuterol sulfate 90 mcg/actuation 2 puff inhalation Q6H PRN sob 11/13/23 11/13/23 History aerosol inhaler Past Med/Surg History Medical History (Updated 11/13/23 @ 18:46 by Julius Lowery MD) History of asthma Calcified granuloma of lung "RUL" Pulmonary embolism Cervical adenopathy HTN (hypertension) Tobacco use disorder COPD (chronic obstructive pulmonary disease) Surgical History History of hysterectomy Family History Other Diabetes Hypertension Lung disease Social History Smoking Status: Current every day smoker Tobacco Type: Cigarettes marital status: Current Living Situation: Alone current occupational status: employed Feels Safe at Home: Yes Review of Systems Review of Systems: Negative otherwise mentioned in HPI. Physical Exam Physical Exam: GENERAL: Alert and oriented x3. NAD, on 2L NC O2 HEENT: No pallor, no icterus. Pupils equal, round and reactive to light. Oral mucosa moist. NECK: No JVD, no neck masses. HEART: S1 and S2 heard. Regular rate and rhythm. No murmur, no gallop. RESPIRATORY SYSTEM: Normal AP diameter. No accessory muscle use. occasional wheezing, no crackles. decreased breath sounds. ABDOMEN: Soft, bowel sounds present, nontender, no distention. CENTRAL NERVOUS SYSTEM: No facial droop. Speech is clear. Obeys simple commands. Moves extremities. EXTREMITIES: No edema, no erythema seen. Results & Data Results & Data Vital Signs (Past 12 Hours) Vital Signs Temp Pulse Pulse Resp BP BP Pulse Ox 11/13/23 17:10 78 94 11/13/23 17:10 78 16 171/120 H 93 11/13/23 16:19 70 11/13/23 16:01 71 16 160/108 H 93 11/13/23 15:45 70 16 170/105 H 94 11/13/23 15:27 74 16 210/120 H 98 11/13/23 15:26 88 17 97 11/13/23 15:05 87 L 11/13/23 15:02 36.9 C 86 20 177/123 H 87 L O2 Del Method O2 Flow Rate 11/13/23 17:10 Nasal Cannula 2 11/13/23 17:10 Nasal Cannula 2 11/13/23 16:19 11/13/23 16:01 Nasal Cannula 2 11/13/23 15:45 Nasal Cannula 2 11/13/23 15:27 Nebulizer 11/13/23 15:26 Nebulizer 11/13/23 15:05 Nasal Cannula 0 11/13/23 15:02 Room Air Code Status & VTE Plan VTE Prophylaxis Plan VTE Prophylaxis will be ordered: Yes
--- NOTE | 2023-11-13 19:03 | Emergency Department Note ---
History of Present Illness General Chief Complaint: Respiratory Problems Stated Complaint: TROUBLES BREATHING HAS COPD - PULMONARY EMB Time Seen by Provider: 11/13/23 15:09 History of Present Illness Provider Complaint: shortness of breath Onset (ago): day(s) (5) Consistency/Duration: + progressively worsening Maximum Pain Intensity: 4 Relieved By: + nothing Exacerbated By: + exertion and + coughing Known history of: COPD and PE Associated symptoms: + chest pain, + cough and + wheezing; no fever, no sputum production, no hemoptysis or no chest congestion HPI Narrative: Patient reports she used to be on Xarelto but is no longer on it Related Data Home oxygen amount: none Home Medications Medication Instructions Recorded Confirmed Type albuterol sulfate 1.25 mg/3 mL 1.25 mg (3 mL) inhalation Q6H PRN 08/29/18 11/13/23 Rx solution for nebulization shortness of breath or wheezing #90 mL fluticasone 250 mcg-salmeterol 50 1 puff inhalation BID 08/29/18 11/13/23 History mcg/dose blistr powdr for inhalation lisinopril 10 mg tablet 10 mg PO QAM 08/29/18 11/13/23 History metoprolol succinate 25 mg 25 mg PO QAM 08/29/18 11/13/23 History tablet,extended release 24 hr tiotropium bromide 18 mcg capsule 1 cap inhalation QAM 08/29/18 11/13/23 History with inhalation device albuterol sulfate 90 mcg/actuation 2 puff inhalation Q6H PRN sob 11/13/23 11/13/23 History aerosol inhaler Allergies Allergy/AdvReac Type Severity Reaction Status Date / Time latex Allergy Unknown Verified 01/27/22 08:49 codeine AdvReac Mild N/V, HEARS Verified 01/27/22 08:49 VIOCES Past Med/Surg History Medical History (Updated 11/13/23 @ 19:03 by Andrez Mcgrath MD) History of asthma Calcified granuloma of lung "RUL" Pulmonary embolism Cervical adenopathy HTN (hypertension) Tobacco use disorder COPD (chronic obstructive pulmonary disease) Surgical History History of hysterectomy Family History Other Diabetes Hypertension Lung disease Social History Smoking Status: Current every day smoker Tobacco Type: Cigarettes marital status: Current Living Situation: Alone current occupational status: employed Feels Safe at Home: Yes Physical Exam 2 Vital Signs: Vital Signs - 24 hr 11/13/23 15:02 11/13/23 15:05 11/13/23 15:26 Temperature 36.9 C Temperature Source Temporal Artery Sc an Pulse Rate 86 88 Pulse Rate [Right Finger] Respiratory Rate 20 17 Respiratory Effort / Characteristics Non-Labored Sponta neous Respiratory Depth Normal Respiratory Patter n Blood Pressure 177/123 H Blood Pressure [Ri ght Arm] Blood Pressure Rashmi n 141 Blood Pressure Rashmi n [Right Arm] Blood Pressure Pos ition Sitting Pulse Oximetry 87 L 87 L 97 Oxygen Delivery Me thod Room Air Nasal Cannula Nebulizer Oxygen Flow Rate 0 Sepsis Recent Feve r Within 48 Hours No Sepsis New/Unexpla ined Change in Men sharmin Status N/A Sepsis Action Take n by Nursing No Action Required Oxygen Flow Rate - Titration 2 Pulse Oximetry Pos t Tiitration 95 11/13/23 15:27 11/13/23 15:45 11/13/23 16:01 Temperature Temperature Source Pulse Rate Pulse Rate [Right Finger] 74 70 71 Respiratory Rate 16 16 16 Respiratory Effort / Characteristics Spontaneous Non-Labored Spontaneous Respiratory Depth Normal Normal Normal Respiratory Patter n Regular Blood Pressure Blood Pressure [Ri ght Arm] 210/120 H 170/105 H 160/108 H Blood Pressure Rashmi n Blood Pressure Rashmi n [Right Arm] 150 126 125 Blood Pressure Pos ition Pulse Oximetry 98 94 93 Oxygen Delivery Me thod Nebulizer Nasal Cannula Nasal Cannula Oxygen Flow Rate 2 2 Sepsis Recent Feve r Within 48 Hours Sepsis New/Unexpla ined Change in Men sharmin Status Sepsis Action Take n by Nursing Oxygen Flow Rate - Titration Pulse Oximetry Pos t Tiitration 11/13/23 16:19 11/13/23 17:10 11/13/23 17:10 Temperature Temperature Source Pulse Rate 70 78 Pulse Rate [Right Finger] 78 Respiratory Rate 16 Respiratory Effort / Characteristics Non-Labored Sponta neous Respiratory Depth Normal Respiratory Patter n Blood Pressure Blood Pressure [Ri ght Arm] 171/120 H Blood Pressure Rashmi n Blood Pressure Rashmi n [Right Arm] 137 Blood Pressure Pos ition Pulse Oximetry 93 94 Oxygen Delivery Me thod Nasal Cannula Nasal Cannula Oxygen Flow Rate 2 2 Sepsis Recent Feve r Within 48 Hours Sepsis New/Unexpla ined Change in Men sharmin Status Sepsis Action Take n by Nursing Oxygen Flow Rate - Titration Pulse Oximetry Pos t Tiitration Physical Exam: Physical Exam GENERAL: oriented to person, place, and time. appears well-developed and well- nourished. HENT: Exam performed. - Head: Normocephalic and atraumatic. EYES: Conjunctivae and EOM are normal. Right eye exhibits no discharge. Left eye exhibits no discharge. No scleral icterus. NECK: Normal range of motion. Neck supple. No JVD present. CV: Normal rate, regular rhythm, normal heart sounds and intact distal pulses. There is no peripheral edema. Palpable radial pulses bue. PULM/CHEST: Tachypnea. Diminished inspiratory breath sounds bilaterally. Scant expiratory wheezes bilaterally. ABD: The abdomen is soft. There is no tenderness. NEURO: Motor and sensation grossly intact. SKIN: Skin is warm and dry. He is not diaphoretic. PSYCH: normal mood and affect. Behavior is normal. Judgment and thought content normal. Course Course 1509: The patient was evaluated in room D8. A complete history and physical exam was performed Cardiac monitoring: An order was placed for continuous cardiac monitoring. The monitor shows a rate of 80 with sinus rhythm interpreted by me Patient was found to be hypoxic on room air. Supplemental oxygen was applied via nasal cannula which improved the patient's oxygen saturation. DuoNebs and steroids ordered for patient. Patient will be moved to room B11A when the room is clean. 1715: Vital signs stable supplemental oxygen. On reassessment the patient has better air entry status post DuoNeb treatment and Solu-Medrol. Still has expiratory wheezes. Still requiring supplemental oxygen via nasal cannula. Patient will be given repeat DuoNeb's. Labs within normal limits with exception of an elevated D-dimer CT of the chest negative for PE. Patient be admitted to the [facility] hospitalist team. Administered Medications Discontinued Medications Albuterol (Albut/Ipratrop 3mg/0.5mg Neb 3 Ml Vial) 3 ml NEB NOW STA; Protocol Stop: 11/13/23 15:14 Last Admin: 11/13/23 15:26 Dose: 3 ml Documented By: NRB Albuterol (Albut/Ipratrop 3mg/0.5mg Neb 3 Ml Vial) 3 ml NEB NOW STA; Protocol Stop: 11/13/23 17:16 Last Admin: 11/13/23 17:20 Dose: 3 ml Documented By: NRB Albuterol (Albut/Ipratrop 3mg/0.5mg Neb 3 Ml Vial) 3 ml NEB NOW STA; Protocol Stop: 11/13/23 17:16 Last Admin: 11/13/23 17:21 Dose: 3 ml Documented By: NRB Ioversol (Optiray 320 125ml) 119 ml IV ONCE ONE Stop: 11/13/23 16:59 Last Admin: 11/13/23 16:58 Dose: 119 ml Documented By: PLW Methylprednisolone (Methylprednisolone 125 Mg/2 Ml Vial) 125 mg IV NOW STA Stop: 11/13/23 15:14 Last Admin: 11/13/23 15:26 Dose: 125 mg Documented By: KEVIN Medical Decision Making Laboratory Data Attestation: I reviewed the patient's lab results. 11/13/23 15:13 11/13/23 15:13 Lab Results 11/13/23 11/13/23 11/13/23 Range/Units 15:13 15:19 15:34 WBC 7.07 (4.8-10.8) K/ul RBC 4.70 (4.20-5.40) M/uL Hgb 15.3 (12.0-16.0) g/dl Hct 44.6 (37.0-47.0) % MCV 94.9 (80.0-100.0) fL MCH 32.6 (25.0-34.0) pg MCHC 34.3 (32.0-36.0) g/dL RDW Std Deviation 42.3 (36.4-46.3) fL RDW Coeff of Rema 12.1 (11.5-14.5) % Plt Count 185 (130-400) K/uL MPV 9.2 L (9.4-12.4) fL Immature Gran % (Auto) 0.3 % Neut % (Auto) 62.3 % Lymph % (Auto) 30.0 % [place] % (Auto) 5.2 % Eos % (Auto) 1.6 % Baso % (Auto) 0.6 % Neut # (Auto) 4.41 (1.40-6.50) K/uL Lymph # (Auto) 2.12 (1.20-3.40) K/uL [place] # (Auto) 0.37 (0.11-0.59) K/uL Eos # (Auto) 0.11 (0.00-0.50) K/uL Baso # (Auto) 0.04 (0.00-0.20) K/uL Immature Gran # (Auto) 0.02 (0.01-0.20) K/uL PT 9.8 (9.0-12.0) Seconds INR 0.9 (0.9-1.1) APTT 23 (21-31) Seconds PTT Ratio 0.9 D-Dimer 2480 H* (0-500) ug/L FEU VBG pH 7.41 (7.36-7.41) VBG pCO2 49 (38-50) mmHg VBG pO2 77 mmHg VBG HCO3 31 mmol/L VBG O2 Saturation 96.0 % VBG Base Excess 5.3 mEq/L Sodium 141 (136-145) mmol/L Potassium 4.2 (3.5-5.1) mmol/L Chloride 104 (98-107) mmol/L Carbon Dioxide 31 (21-32) mmol/L Anion Gap 6 (3-11) BUN 18 (6-23) mg/dl Creatinine 0.79 (0.6-1.2) mg/dl Est Cr Clr Drug Dosing 70.7 ml/min Est GFR ( Amer) 94.3 ml/min Est GFR (Non-Af Amer) 81.4 ml/min BUN/Creatinine Ratio 22.8 H (10-20) Glucose 147 H (70-99(Fasting)) mg/dl Calcium 8.9 (8.6-10.3) mg/dl Total Bilirubin 0.5 (0.2-1.0) mg/dl AST 18 (13-39) U/L ALT 19 (7-52) U/L Alkaline Phosphatase 70 (34-104) U/L Troponin I High Sens 8.6 (0-14) pg/ml Total Protein 6.5 (6.0-8.3) gm/dl Albumin 4.1 (3.4-5.0) gm/dl Globulin 2.4 L (2.5-4.0) gm/dl Albumin/Globulin Ratio 1.7 (0.9-2) Adenovirus (PCR) Not Detected (NotDetected) B. pertussis DNA (PCR) Not Detected (NotDetected) B.parapertussis DNA PCR Not Detected (NotDetected) C. pneumoniae DNA (PCR) Not Detected (NotDetected) Coronavirus OC43 (PCR) Not Detected (NotDetected) Coronavirus HKU1 (PCR) Not Detected (NotDetected) Coronavirus 229E (PCR) Not Detected (NotDetected) SARS-CoV-2 (PCR) Not Detected (NotDetected) Coronavirus NL63 (PCR) Not Detected (NotDetected) Human Metapneumovir PCR Not Detected (NotDetected) Influenza Type A (PCR) Not Detected (NotDetected) Influenza Type B (PCR) Not Detected (NotDetected) M. pneumoniae (PCR) Not Detected (NotDetected) Parainfluenza 1 (PCR) Not Detected (NotDetected) Parainfluenza 2 (PCR) Not Detected (NotDetected) Parainfluenza 3 (PCR) Not Detected (NotDetected) Parainfluenza 4 (PCR) Not Detected (NotDetected) RSV (PCR) Not Detected (NotDetected) Entero/Rhino (PCR) Not Detected (NotDetected) Imaging Data Attestation: I personally reviewed and interpreted this imaging study as follows: My Impression: Chest x-ray: Chest x-ray negative. Airway clear. No pneumothorax. No consolidation. No cardiomegaly or cephalization.. No free air under the diaphragm. No fractures of the skeletal structures. Emphysematuous changes. Radiologist's Impression: Chest X-Ray 11/13/23 15:06 SINGLE VIEW CHEST CLINICAL HISTORY: Atypical chest pain. FINDINGS: An AP, portable, upright chest radiograph is compared to study dated 06/22/2021 and correlated with chest CT dated 01/26/2023. The examination is degraded by portable technique and apical lordotic positioning. The heart is mildly enlarged noting atherosclerotic calcification of the thoracic aorta. The pulmonary vasculature is noncongested. Emphysema and chronic interstitial thickening is similar to previous. There is mild bibasilar scarring/atelectasis. The lungs and pleural spaces are otherwise clear. No pneumothorax is seen. The skeletal structures are osteopenic. The bony thorax is grossly intact. IMPRESSION: Cardiomegaly and emphysema with no active disease in the chest. ACT 112: Negative or not required by law. Electronically signed by: Charli Armstrong M.D. 11/13/2023 4:08 PM Chest CTA 11/13/23 16:37 CT ANGIOGRAM OF THE CHEST CLINICAL HISTORY: Atypical chest pain. COMPARISON STUDY: Chest x-ray dated 11/13/2023. Chest CT dated 01/26/2023. TECHNIQUE: Following the IV administration of 119 cc of Optiray 320, CT angiogram of the chest was performed from the upper abdomen to the thoracic inlet utilizing the pulmonary embolus protocol. Images are reviewed in the axial, sagittal, and coronal planes. 3-D MIPS images are created and assessed. IV contrast was administered without complication. A dose lowering technique was utilized adhering to the principles of ALARA. CT DOSE: 652.48 mGy.cm FINDINGS: Thyroid: Imaged portions of the thyroid gland are normal in size and attenuation. Thoracic aorta: The thoracic aorta is normal in caliber and demonstrates standard 3-vessel arch anatomy. No dissection is seen. Pulmonary vasculature: The pulmonary trunk is normal in caliber. There are no filling defects identified in main, lobar, or segmental pulmonary branches to suggest pulmonary embolus. Heart: The heart is normal in size and without pericardial effusion. Lungs and pleural spaces: There is no airspace consolidation or pleural effusion. The trachea and central airways are clear. A calcified granuloma is seen in the right upper lobe. A 4 mm left upper lobe pulmonary nodule image #136 is unchanged. Mediastinum: There is no mediastinal lymphadenopathy. Gela: Clear. Axillae: There is no axillary lymphadenopathy. Upper abdomen: Partially visualized upper abdominal viscera is within normal limits. Skeletal structures: No lytic or blastic bony lesions are seen. Soft tissues: Bilateral breast implants are in place. IMPRESSION: 1. There is no evidence of pulmonary embolus in the main, lobar, or segmental pulmonary arteries. 2. The lungs are clear. 3. Additional findings as above. ACT 112: Negative or not required by law. Electronically signed by: Charli Armstrong M.D. 11/13/2023 5:10 PM ECG Data Attestation: I personally reviewed and interpreted this ECG as follows: Interpretation: Sinus rhythm with a rate of 78. [place] 142 QRS [address] elevation or ST depression. [facility] Narrative 1509: The patient was evaluated in room D8. A complete history and physical exam was performed Cardiac monitoring: An order was placed for continuous cardiac monitoring. The monitor shows a rate of 80 with sinus rhythm interpreted by me Patient was found to be hypoxic on room air. Supplemental oxygen was applied via nasal cannula which improved the patient's oxygen saturation. DuoNebs and steroids ordered for patient. Patient will be moved to room B11A when the room is clean. 1715: Vital signs stable supplemental oxygen. On reassessment the patient has better air entry status post DuoNeb treatment and Solu-Medrol. Still has expiratory wheezes. Still requiring supplemental oxygen via nasal cannula. Patient will be given repeat DuoNeb's. Labs within normal limits with exception of an elevated D-dimer CT of the chest negative for PE. [facility]. Impression & Plan Hypoxia, COPD exacerbation Critical Care Time Critical Care Time: Yes Total Critical Care Time: 60 I have personally spent greater than 60 minutes of critical care time in the direct management of this patient. This includes bedside care, interpretation of diagnostic studies, and testing, discussion with consultants, patient, and family members, and other required patient management activities. This 60 minutes is in excess of all separately billable procedures. Discharge Plan Visit Data Chief Complaint: Respiratory Problems Stated Complaint: TROUBLES BREATHING HAS COPD - PULMONARY EMB ED Provider: Andrez Mcgrath Discharge Problem: Hypoxia, COPD exacerbation Patient Disposition: Admitted As Inpatient Forms Stand Alone Forms: [facility] Prescriptions Prescriptions: No Action fluticasone propion-salmeterol [Advair Diskus] 250-50 mcg/dose blister with device 1 puff Inhalation BID lisinopril 10 mg tablet 10 mg PO QAM metoprolol succinate 25 mg tablet extended release 24 hr 25 mg PO QAM tiotropium bromide [Spiriva with HandiHaler] 18 mcg capsule, w/inhalation device 1 cap Inhalation QAM albuterol sulfate 1.25 mg/3 mL solution for nebulization 1.25 mg INH Q6H PRN (Reason: shortness of breath or wheezing) Qty: 90 3RF albuterol sulfate 90 mcg/actuation HFA aerosol inhaler 2 puff INHALATION Q6H PRN (Reason: sob) Referrals Referrals: Pipo Baird MD [Primary Care Provider] -
[2023-11-13] MEDS: AZITHROMYCIN 250 MG TAB PO ONE (19:27)
[2023-11-13] MEDS: ENOXAPARIN INJ 40 MG/0.4 ML SYR SQ SCH (19:56)
[2023-11-13] MEDS: FORMOTEROL 20 MCG/2 ML VIAL NEB SCH (20:51)
[2023-11-13] MEDS: BUDESONIDE 0.5 MG/2 ML VIAL (PULMICORT) NEB SCH (20:51)
[2023-11-13] MEDS: ALBUT/IPRATROP 3MG/0.5MG NEB 3 ML VIAL NEB SCH (20:58)
[2023-11-13] MEDS: guaiFENesin 600 MG TABCR PO SCH (21:06)
[2023-11-13] MEDS: methylPREDNISolone 40 MG in SYRINGE 0 ML IV SCH (21:07)
[2023-11-13] MEDS ORDERED: methylPREDNISolone 1000 MG/16 ML IV SCH (22:00)
[2023-11-14 05:30] LABS: BUN Creatinine Ratio 21.9 (10-20); Calcium 8.7 mg/dl (8.6-10.3); Creatinine Clr Calc Pharmacy 76.5 ml/min; Est GFR (African American) 103.8 ml/min; Est GFR (Non-African American) 89.5 ml/min; Magnesium 1.7 mg/dl (1.7-2.4); Phosphorus 2.8 mg/dl (2.5-4.9); Potassium 4.3 mmol/L (3.5-5.1)
[2023-11-14 05:50] LABS: Hematocrit (blood only) 44.8 % (37.0-47.0); Mean Corpuscular Hemoglobin 32.1 pg (25.0-34.0); Mean Corpuscular Hgb Conc 33.5 g/dL (32.0-36.0); Mean Corpuscular Volume 95.7 fL (80.0-100.0); Mean Platelet Volume 9.8 fL (9.4-12.4); Platelet Count 179 K/uL (130-400); RDW Coefficient of Variation 11.9 % (11.5-14.5); RDW Standard Deviation 41.4 fL (36.4-46.3); Red Blood Count 4.68 M/uL (4.20-5.40); White Blood Count 7.91 K/ul (4.8-10.8)
[2023-11-14] MEDS: METOPROLOL SUCC 25MG EXT REL TAB PO SCH (09:33)
[2023-11-14] MEDS: UMECLIDINIUM BROMIDE 62.5MCG/BLISTER 7 PUFFS/INHALER INH SCH (09:33)
[2023-11-14] MEDS: lisinopril 10 MG TAB PO SCH (09:33)
[2023-11-14] MEDS: AZITHROMYCIN 250 MG TAB PO SCH (09:34)
[2023-11-14] MEDS ORDERED: hydrALAZINE HCL 20 MG/ML VIAL IV PRN (13:49)
--- NOTE | 2023-11-14 13:55 | Hospitalist Progress Note ---
Date of Service November 14, 2023 Assessment & Plan (1) COPD exacerbation: Plan COPD exacerbation Patient presenting with progressive worsening of shortness of breath associated with wheezing and dry cough. Admitting CTA chest and CXR with no acute finding. Admitting labs fairly WNL, VBG WNL, respiratory pathogen panel negative. Patient found relief after medications and steroid administration in the ED. Continue with IV Solu-Medrol, scheduled nebs with DuoNeb/budesonide/formoterol. Scheduled Mucinex. c/w azithromycin. Taper down steroid as able, wean down oxygen as tolerated. Patient reports feeling better, reports improving shortness of breath but is still short of breath with activity. Likely chronic elevation of d dimer: CTA chest neg. D dimer elevated at presentation, was elevated in the past as well. Other chronic medical conditions: HTN -continue with/resume home meds as and when able. prn bp meds on board. higher BP readings likely 2/2 hospitalization and steroid use. Monitor. DVT prophylaxis: Lovenox Full code Admission and Anticipated Discharge Date Admission Date: November 13, 2023 Subjective Patient was seen and examined at bedside. Patient was lying in bed, on 3 L oxygen via nasal cannula. NAD, resting comfortably. Patient reports improving breathing, still short of breath with activity, denies chest pain or febrile illness. Patient reports dry cough. Reports feeling better overall. Physical Exam Physical Exam: GENERAL: Alert and oriented x3. NAD, on 3L NC O2 HEENT: No pallor, no icterus. Pupils equal, round and reactive to light. Oral mucosa moist. NECK: No JVD, no neck masses. HEART: S1 and S2 heard. Regular rate and rhythm. No murmur, no gallop. RESPIRATORY SYSTEM: Normal AP diameter. No accessory muscle use. no wheezing, no crackles. decreased breath sounds b/l ABDOMEN: Soft, bowel sounds present, nontender, no distention. CENTRAL NERVOUS SYSTEM: No facial droop. Speech is clear. Obeys simple commands. Moves extremities. EXTREMITIES: No edema, no erythema seen. no tenderness or swelling noted BLE. Results & Data Results & Data Vital Signs (Past 12 Hours) Vital Signs Temp Pulse Pulse Resp BP BP Pulse Ox 11/14/23 11:51 78 20 158/95 H 93 11/14/23 11:45 88 20 94 11/14/23 09:45 11/14/23 09:28 36.8 C 98 H 20 158/100 H 91 11/14/23 07:22 83 11/14/23 07:17 94 H 18 93 11/14/23 04:30 80 15 92 11/14/23 04:01 70 13 93 11/14/23 04:00 70 13 162/94 H 93 11/14/23 03:43 91 H 17 94 11/14/23 03:00 72 18 154/102 H 93 11/14/23 02:40 11/14/23 02:30 95 H 22 180/116 H 94 11/14/23 02:28 11/14/23 02:28 86 20 180/116 H 93 O2 Del Method O2 Flow Rate 11/14/23 11:51 Nasal Cannula 4 11/14/23 11:45 Nasal Cannula 3 11/14/23 09:45 Nasal Cannula 4 11/14/23 09:28 Nasal Cannula 4 11/14/23 07:22 11/14/23 07:17 Nasal Cannula 3 11/14/23 04:30 11/14/23 04:01 11/14/23 04:00 11/14/23 03:43 Nasal Cannula 3 11/14/23 03:00 11/14/23 02:40 Nasal Cannula 2 11/14/23 02:30 11/14/23 02:28 Nasal Cannula 3 11/14/23 02:28 Nasal Cannula 3
[2023-11-14] MEDS: MAGNESIUM SULFATE / D5W 1 GM/100 ML BAG IV SCH (14:24)
[2023-11-14] MEDS: methylPREDNISolone 40 MG in SYRINGE 0 ML IV SCH (20:48)
--- NOTE | 2023-11-14 22:35 | Electrocardiogram Report ---
Test Reason : Blood Pressure : / mmHG Vent. Rate : 078 BPM Atrial Rate : 078 BPM P-R Int : 142 ms QRS Dur : 074 ms QT Int : 368 ms P-R-T Axes : 081 065 070 degrees QTc Int : 419 ms Normal sinus rhythm Normal ECG When compared with ECG of 22-JUN-2021 12:30, Premature ventricular complexes are no longer Present Confirmed by Jah Loera ([id number]) on 11/14/2023 10:34:59 PM Referred By: REFERRED SELF Confirmed By:Jah Loera
--- OUTSIDE RECORDS SUMMARY | 2023-11-15 02:13 | External Medical Summary | Summary of Care ---
Author Name Unknown Organization [facility] Address [address] [place] [address] Phone [phone] Care Team Providers Care Centrifugal Machine Tender Name Role Phone Oli LAU MD, Pipo Miller Primary Care Provider [phone] Reason for Visit * Reason Onset Date Comments Health Maintenance 07/22/2023 Encounter Details Date Type Department Care Team (Late st Contact Info) Description 07/22/2023 Telephone Family Practice [facility] [address] [place] [address] Pipo Baird III, MD [address] [place] [address] Health Maintenance Allergies Active Allergy Reactions Criticality Noted Date Comments Codeine 09/29/2011 Nausea & vomiting documented as of this encounter (statuses as of 07/22/2023) Medications Medication Sig Dispensed Refills Start Date End Date Status Zoster Vac Recomb Adjuvanted 50 MCG/0.5ML Intramuscular Suspension Reconstituted (Shingrix)Indication s:Need for vaccination for zoster Inject 0.5 mL into a large muscle now and repeat dose in 60 to 180 days 1 Each 1 06/24/2021 Active Naproxen 500 MG Oral Tablet (Naprosyn) Take by mouth 1 Tablet 2 times a day with morning and evening meals . With food 20 Tablet 1 09/15/2021 Active Additional Information Patient taking differently:500 mg OralPRN, Pain, With food, Reported on 01/26/2023 Spiriva HandiHaler 18 MCG Inhalation Capsule (tiotropium bromide)Indications: COPD, moderate (HCC) INHALE THE CONTENTS OF 1 CAPSULE BY MOUTH DAILY. FOR INHALER ONLY, DO NOT SWALLOW. 30 Capsule 5 08/20/2022 Active Fluticasone-Salmeter ol 250-50 MCG/ACT Inhalation Aerosol Powder Breath Activated (Wixela Inhub)Indications:CO PD, moderate (HCC) INHALE 1 PUFF BY MOUTH TWICE A DAY 180 Each 1 02/04/2023 Active Metoprolol Succinate ER 25 MG Oral Tablet Extended Release 24 Hour (toPROL XL)Indications:Warren jasbir blood pressure, situational TAKE 1 TABLET BY MOUTH EVERY DAY 90 Tablet 1 04/08/2023 Active Lisinopril 10 MG Oral Tablet (Prinivil)Indication s:HTN, goal below 140/90 TAKE 1 TABLET BY MOUTH EVERY DAY IN THE MORNING 90 Tablet 1 04/08/2023 Active Ipratropium-Albutero l 0.5-2.5 (3) MG/3ML Inhalation Solution (Duoneb) INHALE 3 ML VIA NEBULIZER 4 TIMES A DAY 90 mL 1 04/12/2023 Active Albuterol Sulfate HFA 108 (90 Base) MCG/ACT Inhalation Aerosol SolutionIndications: COPD, group C, by GOLD 2017 classification (HCC) INHALE BY MOUTH 2 PUFFS EVERY 6 HOURS NEEDED FOR SHORTNESS OF BREATH OR WHEEZING. 18 g 2 05/31/2023 Active documented as of this encounter (statuses as of 07/22/2023) Active Problems Problem Noted Date Diagnosed Date COPD, group D, by GOLD 2017 classification 06/22 Overview: Per COPD GOLD Classification Obesity, Class I, BMI 30.0-34.9 (see actual BMI) 06/22/2021 Personal history of DVT (deep vein thrombosis) 1 08/23/2020 History of pulmonary embolism 06/22/2021 Tobacco use disorder 08/25/2014 HTN, goal below 130/80 04/29/2012 Calcified granuloma of lung documented as of this encounter (statuses as of 07/22/2023) Resolved Problems Problem Noted Date Diagnosed Date Resolved Date COPD, group C, by GOLD 2017 classification 12/22/2021 06/25/2022 Overview: Per COPD GOLD Classification Acute deep vein thrombosis ( DVT) of tibial vein of left lower extremity 11/22/2017 11/13/2019 Pulmonary embolus 11/22/2017 11/13/2019 COPD, moderate 10/06/2017 12/25/2021 Overview: Per COPD GOLD Classification Respiratory abnormality 08/25/201406/11 Viral URI with cough 08/25/2014 018 Chronic rhinitis 08/25/2014 06/22/2021 Acute pharyngitis 08/25/2014 10/06/2017 Intermittent asthma with rel iever use up to twice per week 04/29/2012 10/06/2017 HTN, goal to be determined 10/20/2011 1 SOLITARY PULMONARY NODULE 07/06/2009 Tobacco use disorder 07/01/2009 015 ADVANCE DIRECTIVE INFORMATION 04/19/2007 06/22/2021 Overview: No, Advance Directive brochure given to patient. documented as of this encounter (statuses as of 07/22/2023) Immunizations Name Administration Dates Next Due COVID-19 mRNA, LNP-s, No Pre serve, 2-Dose Series (Pfizer) 04/16/2021,09/07/2020,08/17/2020 H1N1 2009 Influenza, IM 06/15/2009 Pneumococcal Polysaccharide PPV23 (Pneumovax) 07/15/2009 Seasonal Influenza, PF, 6 M & above, IM , (FluLaval or Fluzone) 04/27/2021 TDAP (age 11 and older)(Adacel) 07/27/2008 Zoster Vaccine Recombinant (Shingrix) 06/24/2021 ,04/27/2021 documented as of this encounter Social History Tobacco Use Types Packs/Day Years Used Date Smoking Tobacco: Every Day Cigarettes 0.3 41 Smokeless Tobacco: Never Comments:01/22/22 currently smoking 2-3 cig/day Alcohol Use Standard Drinks/Week Comments Yes 0 (1 standard drink = 0.6 oz pur e alcohol) socially PHQ-2 Answer Date Recorded PHQ-2 Score -1 05/18/2018 Sex and Gender Information Value Date Recorded Sex Assigned at Not on file Gender Identity Not on file Sexual Orientation Not on file Job Start Date Occupation Industry Not on file Not on file Not on file documented as of this encounter Miscellaneous Notes * Telephone Encounter - Rachel Lopez LPN - 07/22/2023 10:29 AM EST Care Gaps Comprehensive Care Outreach Last Office/Telemedicine Visit: 01/26/2023 (in office), Visit date not found (telemedicine) Next Office Visit: Visit date not found Hemoglobin AIC Results: No results found for: "HEMOGLOBIN A1C" Reviewed Health Maintenance below: Health Maintenance Topic Date Due Albumin/Creatinine Ratio Never done Alpha-1 Antitrypsin Never done Pneumococcal Vaccine: Pediatrics (0 to 5 Years) and At-Risk Patients (6 to 64 Years) (2 - PCV) 07/15/2010 DTaP,Tdap,and Td Vaccines (2 - Td or Tdap) 07/27/2018 Depression Screening 10/06/2018 Mammogram 12/04/2020 *ADVANCE DIRECTIVE NOT ON FILE Never done Lipid Panel 01/02/2022 GFR 04/27/2022 Colorectal Cancer Screening 12/29/2022 Ov scheduled Mamm Labs already ordered Colon 10 year does not want to do until summer schedule is not out that far will [facility] Care Gap Outreach Action Taken: Spoke to patient documented in this encounter Plan of Treatment Upcoming Encounters Date Type Department Care Team (Late st Contact Info) Description 01/25/2024 1:00 PM EDT Office Visit Family Practice [facility] [address] [place] [address] Pipo Baird III, MD [address] [place] [address] Health Maintenance Due Date Last Done Comments Albumin/Creatinine Ratio 1981 Alpha-1 Antitrypsin 1981 Cologuard 2008 Fecal Occult Blood Test 2008 Sigmoidoscopy 2008 Pneumococcal Vaccine: Pediatrics (0 to 5 Years) and At-Risk Patients (6 to 64 Years) (2 - PCV) 07/15/2010 07/15/2009 DTaP,Tdap,and Td Vaccines (2 - Td or Tdap) 07/27/2018 07/27/2008, 07/12/1995 Depression Screening 10/06/2018 10/06/2017 Mammogram 12/04/2020 12/05/2019, 07/13, 07/30/2009, Additional history exists *ADVANCE DIRECTIVE NOT ON FILE 12/28/2021 Lipid Panel 01/02/2022 01/02/2017, 10/12/2011 GFR 04/27/2022 04/27/2021, 11/09, 11/15/2017, Additional history exists Colonoscopy 12/29/2022 12/29/2012, 12/29/2012 Colorectal Cancer Screening 12/29/2022 DISCUSS TOBACCO CESSATION (REFER TO SMARTSET #[id number]) 01/22/2023 01/22/2022 COVID-19 Vaccine ( season) 2023 04/16/2021, 09/07/2020, 08/17/2020 Influenza Vaccine (FLU shot) (#1) 2023 04/27/2021, 06/15/2009, 04/25/2003 O2 ASSESSMENT COMPLETED IN PAST YEAR FOR COPD 01/27/2024 01/26/2023 Diabetes Screening 04/27/2024 04/27/2021, 0 11/18/2017, 11/15/2017, Additional history exists Hepatitis B Completed 04/25/2002, 04/11, 02/17/2001 Zoster Vaccines Completed 06/24/2021, 04/27/2021 GARDASIL-HPV IMMUNIZATION SERIES Aged Out No longer eligible based on patient's age to complete this topic MENINGOCOCCAL (MENACTRA/MENVEO) Aged Out No longer eligible based on patient's age to complete this topic documented as of this encounter Medical Devices Not on filedocumented as of this encounter Care Teams Centrifugal Machine Tender Relationship Specialty Start Date End Date Pipo Baird III, MD PCP - General 01/11/08 documented as of this encounter
--- OUTSIDE RECORDS SUMMARY | 2023-11-15 02:13 | External Medical Summary | Summary of Care ---
Author Name Unknown Organization [facility] Address [address] [place] [address] Phone [phone] Care Team Providers Care Solutions Executive Cloud Sales Name Role Phone Oli LAU MD, Stevie Miller Primary Care Provider [phone] Reason for Visit * Reason Comments eRx-Medication Refill Encounter Details Date Type Department Care Team (Late st Contact Info) Description 11/15/2022 Refill Family Practice [facility] [address] [place] [address] Stevie Gaytan III, MD [address] [place] [address] Encounter for long-term (current) use of medications*; HTN, goal below 140/90 Allergies Active Allergy Reactions Criticality Noted Date Comments Codeine 09/29/2011 Nausea & vomiting documented as of this encounter (statuses as of 05/17/2023) Medications Medication Sig Dispensed Refills Start Date End Date Status Zoster Vac Recomb Adjuvanted 50 MCG/0.5ML Intramuscular Suspension Reconstituted (Shingrix)Indicatio ns:Need for vaccination for zoster Inject 0.5 mL into a large muscle now and repeat dose in 60 to 180 days 1 Each 1 1 Active Naproxen 500 MG Oral Tablet (Naprosyn) Take by mouth 1 Tablet 2 times a day with morning and evening meals . With food 20 Tablet 1 2 Active Additional Information Patient taking differently:500 mg OralPRN, Pain, With food, Reported on 01/26/2023 Spiriva HandiHaler 18 MCG Inhalation Capsule (tiotropium bromide)Indications :COPD, moderate (HCC) INHALE THE CONTENTS OF 1 CAPSULE BY MOUTH DAILY. FOR INHALER ONLY, DO NOT SWALLOW. 30 Capsule 5 3 Active guaiFENesin ER 600 MG Oral Tablet Extended Release 12 Hour (Mucinex) Take by mouth 600 mg in the morning AND 600 mg before bedtime. 0 01/27/20 23 Discontinued Cephalexin 500 MG Oral Capsule (Keflex) 0 2 01/27/20 23 Discontinued Lisinopril 10 MG Oral Tablet (Prinivil)Indicatio ns:HTN, goal below 140/90 TAKE BY MOUTH 1 TABLET IN THE MORNING. 90 Tablet 1 2 11/17/19 23 Discontinued Metoprolol Succinate ER 25 MG Oral Tablet Extended Release 24 Hour (toPROL XL)Indications:Elev ated blood pressure, situational TAKE 1 TABLET BY MOUTH EVERY DAY 90 Tablet 1 2 04/08/20 23 Discontinued Fluticasone-Salmete rol 250-50 MCG/ACT Inhalation Aerosol Powder Breath Activated (Wixela Inhub)Indications:C OPD, moderate (HCC) TAKE 1 PUFF BY MOUTH TWICE A DAY 180 Each 0 3 02/05/20 23 Discontinued Albuterol Sulfate HFA 108 (90 Base) MCG/ACT Inhalation Aerosol SolutionIndications :COPD, group C, by GOLD 2017 classification ([facility]) INHALE BY MOUTH 2 PUFFS EVERY 6 HOURS NEEDED FOR SHORTNESS OF BREATH OR WHEEZING. 18 g 1 3 02/09/20 23 Discontinued Ipratropium-Albuter ol 0.5-2.5 (3) MG/3ML Inhalation Solution (Duoneb) INHALE 3 ML VIA NEBULIZER 4 TIMES A DAY 90 mL 1 3 04/12/20 23 Discontinued Lisinopril 10 MG Oral Tablet (Prinivil)Indicatio ns:HTN, goal below 140/90 TAKE 1 TABLET BY MOUTH EVERY DAY IN THE MORNING 90 Tablet 0 3 04/08/20 23 Discontinued Hospital, Clinic, or Other Facility Administered Medication Ordered Dose Route Frequency Start Date End Date Status Albuterol Sulfate (Proventil) (2.5 MG/3ML) 0.083% inhalation solution 2.5 mgIndications:COPD, group C, by GOLD 2017 classification ([facility]) 2.5 mg NEBULIZER PRN 07/20/2022 07/20/2023 Acti ve Albuterol Sulfate (Proventil) (5 MG/ML) 0.5% *conc* inhalation solution 2.5 mgIndications:COPD, group C, by GOLD 2017 classification ([facility]) 2.5 mg NEBULIZER PRN 07/20/2022 07/20/2023 Acti ve documented as of this encounter (statuses as of 05/17/2023) Active Problems Problem Noted Date Diagnosed Date [...] as of this encounter (statuses as of 05/17/2023) Resolved Problems Problem Noted Date Diagnosed Date [...] as of this encounter (statuses as of 05/17/2023) Immunizations Name Administration Dates Next Due COVID-19 mRNA, LNP-s, No Pre serve, 2-Dose Series (Pfizer) 04/16/2021,09/07/2020,08/17/2020 H1N1 2009 Influenza, IM 06/15/2009 Pneumococcal Polysaccharide PPV23 (Pneumovax) 07/15/2009 SEASONAL INFLUENZA, PF, 6 M & Above, IM , (FLULAVAL or FLUZONE) 04/27/2021 TDAP (age 11 and older)(Adacel) 07/27/2008 [...] encounter Miscellaneous Notes * Telephone Encounter - Jeffry Izquierdo PHARM Tech - 05/17/2023 4:27 PM EST Received message from [facility] regarding patient needing appointment and labs. Letter was sent out to patient to advise. Thank you, Jeffry Izquierdo Hand Frame Surgical Elastic Knitter [facility] (Formerly [facility]) [phone] 05/17/2023,4:27 PM * Telephone Encounter - Carla Powers [facility] - 11/16/2022 10:38 AM EDTSigned Prescriptions: Disp Refills Lisinopril 10 MG Oral Tablet (Prinivil) 90 Tab*0 Sig: TAKE 1 TABLET BY MOUTH EVERY DAY IN THE MORNING Authorizing Provider: STEVIE GAYTAN III User: CARLA POWERS * Telephone Encounter - Carla Powers RPh - 11/16/2022 10:36 AM EDT Provided 90 days supply with 0 refill. Per refill protocol patient should have BMP, lipid panel, albumin/creat ratio on file within past year. Reviewed AMP report, Care Gaps/Health Maintenance, medications list, and for any routine labs typically ordered for this patient. Lab orders placed. Please contact patient to schedule office visit with her PRIMARY CARE and advise of labs ordered for blood draw AND URINE specimen (patient will have to be able to void to provide sample).. Recommendpatient to fast if able for labs. Patient may still have water and regular medications. Advise to obtain labs before requesting the next refill. Last Visit: 09/15/2021 (in office), Visit date not found (telemedicine) Next Visit: Visit date not found Carla Wynn Clinical Pharmacist Telepharmacy [phone] 11/16/2022, 10:37 AM documented in this encounter Plan of Treatment Scheduled Orders Name Type Priority Associated Diagnoses Orde r Schedule BASIC METABOLIC PANEL Lab Routine Encounter for long-term (current) use of medications Expected: 11/23/2022 (Approximate), Expires: 11/17/2023 LIPID PANEL WITH DIRECT LDL IF TG IS HIGH Lab Routine Encounter for long-term (current) use of medications Expected: 11/23/2022 (Approximate), Expires: 11/17/2023 Health Maintenance Due Date Last Done Comments [...] Not on filedocumented as of this encounter Visit Diagnoses Diagnosis Encounter for long-term (current) use of medications- Primary Encounter for long-term (current) use of other medications HTN, goal below 140/90 Unspecified essential hypertension documented in this encounter Care Teams Solutions Executive Cloud Sales Relationship Specialty Start Date End Date Stevie Gaytan III, MD [address] [place] [address] PCP - General 01/11/08 documented as of this encounter
--- OUTSIDE RECORDS SUMMARY | 2023-11-15 02:13 | External Medical Summary | Summary of Care ---
Author Name Unknown Organization [facility] Address [address] [place] [address] Phone [phone] Care Team Providers Care Relay Telegrapher Name Role Phone Oli LAU MD, Stevie Miller Primary Care Provider [phone] Reason for Visit * Reason Comments eRx-Medication Refill Encounter Details Date Type Department Care Team (Late st Contact Info) Description 08/30/2023 Refill Family Practice [facility] [address] [place] [address] Stevie Gaytan III, MD [address] [place] [address] COPD, moderate (HCC) Allergies Active Allergy Reactions Criticality Noted Date Comments Codeine 09/29/2011 Nausea & vomiting documented as of this encounter (statuses as of 08/30/2023) Medications Medication Sig Dispensed Refills Start Date [...] NOT SWALLOW. 30 Capsule 5 3 Active Metoprolol Succinate ER 25 MG Oral Tablet Extended Release 24 Hour (toPROL XL)Indications:Elev ated blood pressure, situational TAKE 1 TABLET BY MOUTH EVERY DAY 90 Tablet 1 3 Active Lisinopril 10 MG Oral Tablet (Prinivil)Indicatio ns:HTN, goal below 140/90 TAKE 1 TABLET BY MOUTH EVERY DAY IN THE MORNING 90 Tablet 1 3 Active Ipratropium-Albuter ol 0.5-2.5 (3) MG/3ML Inhalation Solution (Duoneb) INHALE 3 ML VIA NEBULIZER 4 TIMES A DAY 90 mL 1 3 Active Albuterol Sulfate HFA 108 (90 Base) MCG/ACT Inhalation Aerosol SolutionIndications :COPD, group C, by GOLD 2017 classification ([facility]) INHALE BY MOUTH 2 PUFFS EVERY 6 HOURS NEEDED FOR SHORTNESS OF BREATH OR WHEEZING. 18 g 2 3 Active Fluticasone-Salmete rol 250-50 MCG/ACT Inhalation Aerosol Powder Breath Activated (Wixela Inhub)Indications:C OPD, moderate (HCC) TAKE 1 PUFF BY MOUTH TWICE A DAY 180 Each 1 4 Active Fluticasone-Salmete rol 250-50 MCG/ACT Inhalation Aerosol Powder Breath Activated (Wixela Inhub)Indications:C OPD, moderate (HCC) INHALE 1 PUFF BY MOUTH TWICE A DAY 180 Each 1 3 08/30/19 24 Discontinued documented as of this encounter (statuses as of 08/30/2023) Active Problems Problem Noted Date Diagnosed Date [...] as of this encounter (statuses as of 08/30/2023) Resolved Problems Problem Noted Date Diagnosed Date [...] as of this encounter (statuses as of 08/30/2023) Immunizations Name Administration Dates Next Due COVID-19 [...] encounter Miscellaneous Notes * Telephone Encounter - Evelyn Galicia [facility] - 08/30/2023 1:06 PM ESTSigned Prescriptions: Disp Refills Fluticasone-Salmeterol 250-50 MCG/ACT Inha*180 Ea*1 Sig: TAKE 1PUFF BY MOUTH TWICE A DAYAuthorizing Provider: STEVIE GAYTAN III User: EVELYN GALICIA--- documented in this encounter Plan of Treatment Upcoming Encounters Date Type Department Care Team (Late st Contact Info) Description 01/25/2024 1:00 PM EDT Office Visit Family Practice [address] [place] [address] Stevie Gaytan III, MD [address] [facility] [address] Health Maintenance Due Date Last Done Comments [...] as of this encounter Visit Diagnoses Diagnosis COPD, moderate (HCC) Chronic airway obstruction, not elsewhere classified documented in this encounter Care Teams Relay Telegrapher Relationship Specialty Start Date End Date Stevie Gaytan III, MD PCP - General 01/11/08 documented as of this encounter
--- OUTSIDE RECORDS SUMMARY | 2023-11-15 02:13 | External Medical Summary | Summary of Care ---
Author Name Unknown Organization [facility] Address [address] [place] [address] Phone [phone] Care Team Providers Care Windows Support Engineer Name Role Phone Oli LAU MD, Stevie Miller Primary Care Provider [phone] Reason for Visit * Reason Comments eRx-Medication Refill Encounter Details Date Type Department Care Team (Late st Contact Info) Description 09/20/[address] [facility] [address] [place] [address] Stevie Gaytan III, MD [address] [place] [address] COPD, group C, by GOLD 2017 classification ([facility]) Allergies Active Allergy Reactions Criticality Noted Date Comments Codeine 09/29/2011 Nausea & vomiting documented as of this encounter (statuses as of 09/22/2023) Medications Medication Sig Dispensed Refills Start Date [...] THE MORNING 90 Tablet 1 3 Active Fluticasone-Salmete rol 250-50 MCG/ACT Inhalation Aerosol Powder Breath Activated (Wixela Inhub)Indications:C OPD, moderate (HCC) TAKE 1 PUFF BY MOUTH TWICE A DAY 180 Each 1 4 Active Albuterol Sulfate HFA 108 (90 Base) MCG/ACT Inhalation Aerosol SolutionIndications :COPD, group C, by GOLD 2017 classification ([facility]) INHALE BY MOUTH 2 PUFFS EVERY 6 HOURS NEEDED FOR SHORTNESS OF BREATH OR WHEEZING. 18 g 2 4 Active Ipratropium-Albuter ol 0.5-2.5 (3) MG/3ML Inhalation Solution (Duoneb) USE 1 VIAL VIA NEBULIZER 4 TIMES A DAY 90 mL 2 4 Active Ipratropium-Albuter ol 0.5-2.5 (3) MG/3ML Inhalation Solution (Duoneb) INHALE 3 ML VIA NEBULIZER 4 TIMES A DAY 90 mL 1 3 09/22/19 24 Discontinued Albuterol Sulfate HFA 108 (90 Base) MCG/ACT Inhalation Aerosol SolutionIndications :COPD, group C, by GOLD 2017 classification ([facility]) INHALE BY MOUTH 2 PUFFS EVERY 6 HOURS NEEDED FOR SHORTNESS OF BREATH OR WHEEZING. 18 g 2 3 09/22/19 24 Discontinued documented as of this encounter (statuses as of 09/22/2023) Active Problems Problem Noted Date Diagnosed Date [...] as of this encounter (statuses as of 09/22/2023) Resolved Problems Problem Noted Date Diagnosed Date [...] as of this encounter (statuses as of 09/22/2023) Immunizations Name Administration Dates Next Due COVID-19 [...] encounter Miscellaneous Notes * Telephone Encounter - Madisyn Pratt RPh - 09/22/2023 7:13 AM EDTSigned Prescriptions: Disp Refills Albuterol Sulfate HFA 108 (90 Base) MCG/AC*18 g 2 Sig: INHALE BYMOUTH 2 PUFFS EVERY 6 HOURS NEEDED FOR SHORTNESS OF BREATH OR WHEEZING.Authorizing Provider: STEVIE GAYTAN III User: MADISYN PRATT Ipratropium-Albuterol 0.5-2.5 (3) MG/3ML I*90 mL 2Sig: USE 1 VIAL VIA NEBULIZER 4 TIMES A DAYAuthorizing Provider: STEVIE GAYTAN III User: MADISYN PRTAT documented in this encounter Plan of Treatment Upcoming Encounters Date Type Department Care Team (Late st Contact Info) Description 01/25/2024 1:00 PM EDT Office Visit Family Practice [facility] [address] [place] [address] Stevie Gaytan III, MD [address] [place] [address] Health Maintenance Due Date Last Done Comments Albumin/Creatinine Ratio 1981 Alpha-1 Antitrypsin 1981 Cologuard 2008 Fecal Occult Blood Test 2008 Sigmoidoscopy 2008 Pneumococcal Vaccine: Pediatrics (0 to 5 Years) and At-Risk Patients (6 to 64 Years) (2 of 2 - PCV) 07/15/2010 07/15/2009 DTaP,Tdap,and Td Vaccines [...] of this encounter Visit Diagnoses Diagnosis COPD, group C, by GOLD 2017 classification (HCC) documented in this encounter Care Teams Windows Support Engineer Relationship Specialty Start Date End Date Stevie Gaytan III, MD PCP - General 01/11/08 documented as of this encounter
--- OUTSIDE RECORDS SUMMARY | 2023-11-15 02:13 | External Medical Summary | Summary of Care ---
Author Name Unknown Organization [facility] Address [address] [place] [address] Phone [phone] Care Team Providers Care Loom Technician Name Role Phone Oli LAU MD, Stevie Miller Primary Care Provider [phone] Reason for Visit * Reason Comments eRx-Medication Refill Encounter Details Date Type Department Care Team (Late st Contact Info) Description 05/30/2023 Refill Family Practice [facility] [address] [place] [address] Stevie Gaytan III, MD [address] [place] [address] COPD, group C, by GOLD 2017 classification ([facility]) Allergies Active Allergy Reactions Criticality Noted Date Comments Codeine 09/29/2011 Nausea & vomiting documented as of this encounter (statuses as of 05/31/2023) Medications Medication Sig Dispensed Refills Start Date [...] NOT SWALLOW. 30 Capsule 5 3 Active Fluticasone-Salmete rol 250-50 MCG/ACT Inhalation Aerosol Powder Breath Activated (Wixela Inhub)Indications:C OPD, moderate (HCC) INHALE 1 PUFF BY MOUTH TWICE A DAY 180 Each 1 3 Active Metoprolol Succinate ER 25 MG [...] C, by GOLD 2017 classification ([facility]) INHALE BY MOUTH 2 PUFFS EVERY 6 HOURS NEEDED FOR SHORTNESS OF BREATH OR WHEEZING. 18 g 2 3 Active Albuterol Sulfate HFA 108 (90 Base) MCG/ACT Inhalation Aerosol SolutionIndications :COPD, group C, by GOLD 2017 classification ([facility]) INHALE BY MOUTH 2 PUFFS EVERY 6 HOURS NEEDED FOR SHORTNESS OF BREATH OR WHEEZING. 18 g 1 3 05/31/20 23 Discontinued Hospital, Clinic, or Other Facility Administered Medication Ordered Dose Route Frequency Start Date End Date Status Albuterol Sulfate (Proventil) (2.5 MG/3ML) 0.083% inhalation solution 2.5 mgIndications:COPD, group C, by GOLD 2017 classification ([facility]) 2.5 mg NEBULIZER PRN 07/20/2022 07/20/2023 Acti ve Albuterol Sulfate (Proventil) (5 MG/ML) 0.5% *conc* inhalation solution 2.5 mgIndications:COPD, group C, by GOLD 2017 classification ([facility]) 2.5 mg NEBULIZER PRN 07/20/2022 07/20/2023 Acti ve documented as of this encounter (statuses as of 05/31/2023) Active Problems Problem Noted Date Diagnosed Date [...] as of this encounter (statuses as of 05/31/2023) Resolved Problems Problem Noted Date Diagnosed Date [...] as of this encounter (statuses as of 05/31/2023) Immunizations Name Administration Dates Next Due COVID-19 mRNA, LNP-s, No Pre serve, 2-Dose Series ([employer]) 04/16/2021,09/07/2020,08/17/2020 H1N1 2009 Influenza, IM 06/15/2009 Pneumococcal [...] encounter Miscellaneous Notes * Telephone Encounter - Jhonny Corbett RPh - 05/31/2023 10:13 AM EST Signed Prescriptions: Disp Refills Albuterol Sulfate HFA 108 (90 Base) MCG/AC*18 g 2 Sig: INHALE BYMOUTH 2 PUFFS EVERY 6 HOURS NEEDED FOR SHORTNESS OF BREATH OR WHEEZING.Authorizing Provider: STEVIE GAYTAN III User: JHONNY CORBETT documented in this encounter Plan of Treatment Health Maintenance Due Date Last Done Comments [...] (HCC) documented in this encounter Care Teams Loom Technician Relationship Specialty Start Date End Date Stevie Gaytan III, MD [address] [place] [address] PCP - General 01/11/08 documented as of this encounter
[2023-11-15 07:05] LABS: BUN Creatinine Ratio 26.8 (10-20); Calcium 8.5 mg/dl (8.6-10.3); Creatinine Clr Calc Pharmacy 67.4 ml/min; Est GFR (African American) 90.1 ml/min; Est GFR (Non-African American) 77.8 ml/min; Magnesium 2.2 mg/dl (1.7-2.4); Phosphorus 3.2 mg/dl (2.5-4.9); Potassium 4.7 mmol/L (3.5-5.1)
--- NOTE | 2023-11-15 16:10 | Hospitalist Progress Note ---
Date of Service November 15, 2023 Assessment & Plan (1) COPD exacerbation: Plan COPD exacerbation Patient presenting with progressive worsening of shortness of breath associated with wheezing and dry cough. Admitting CTA chest and CXR with no acute finding. Admitting labs fairly WNL, VBG WNL, respiratory pathogen panel negative. Patient found relief after medications and steroid administration in the ED. Continue with IV Solu-Medrol, scheduled nebs with DuoNeb/budesonide/formoterol. Scheduled Mucinex. c/w azithromycin. Taper down steroid as able, wean down oxygen as tolerated. Patient reports feeling better, reports improving shortness of breath but is still short of breath with activity. solu-M bid today, reassess in AM for taper. Likely chronic elevation of d dimer: CTA chest neg. D dimer elevated at presentation, was elevated in the past as well. Other chronic medical conditions: HTN -continue with/resume home meds as and when able. prn bp meds on board. higher BP readings likely 2/2 hospitalization and steroid use. Monitor. DVT prophylaxis: Lovenox Full code Admission and Anticipated Discharge Date Admission Date: November 13, 2023 Subjective Patient was seen and examined at bedside. Patient was lying in bed, on 1 L oxygen via nasal cannula. NAD, resting comfortably. Patient reports improving breathing, still short of breath with activity, denies chest pain or febrile illness. Patient reports dry cough improving. Reports feeling better overall. Physical Exam Physical Exam: GENERAL: Alert and oriented x3. NAD, on 1L NC O2 HEENT: No pallor, no icterus. Pupils equal, round and reactive to light. Oral mucosa moist. NECK: No JVD, no neck masses. HEART: S1 and S2 heard. Regular rate and rhythm. No murmur, no gallop. RESPIRATORY SYSTEM: Normal AP diameter. No accessory muscle use. no wheezing, no crackles. decreased breath sounds b/l still significant. ABDOMEN: Soft, bowel sounds present, nontender, no distention. CENTRAL NERVOUS SYSTEM: No facial droop. Speech is clear. Obeys simple commands. Moves extremities. EXTREMITIES: No edema, no erythema seen. no tenderness or swelling noted BLE. Results & Data Results & Data Vital Signs (Past 12 Hours) Vital Signs Temp Pulse Pulse Resp BP Pulse Ox O2 Del Method 11/15/23 15:00 67 11/15/23 14:48 37.3 C 76 16 152/83 H 90 Nasal Cannula 11/15/23 13:41 80 17 93 Nasal Cannula 11/15/23 12:35 36.8 C 83 17 142/89 H 93 Nasal Cannula 11/15/23 08:51 36.4 C L 60 17 133/86 92 Nasal Cannula 11/15/23 08:00 Nasal Cannula 11/15/23 06:58 70 11/15/23 06:53 83 15 97 Nasal Cannula O2 Flow Rate 11/15/23 15:00 11/15/23 14:48 1 11/15/23 13:41 1 11/15/23 12:35 1 11/15/23 08:51 1 11/15/23 08:00 3 11/15/23 06:58 11/15/23 06:53 2
[2023-11-16 08:16] LABS: BUN Creatinine Ratio 30.3 (10-20); Blood Urea Nitrogen 23 mg/dl (6-23); Carbon Dioxide 29 mmol/L (21-32); Chloride 100 mmol/L (98-107); Creatinine Clr Calc Pharmacy 73.1 ml/min; Est GFR (African American) 98.8 ml/min; Est GFR (Non-African American) 85.3 ml/min; Glucose 144 mg/dl (70-99(Fasting)); Phosphorus 4.5 mg/dl (2.5-4.9)
[2023-11-16 09:02] LABS: Magnesium 2.1 mg/dl (1.7-2.4); Potassium 4.5 mmol/L (3.5-5.1)
--- NOTE | 2023-11-16 13:44 | Discharge Summary ---
Date of Service November 16, 2023 Admission HPI Per Admitting Provider 58-year-old lady with PMH of COPD, PE not on anticoagulation [patient states physician discontinued Xarelto in the past], HTN presented to the ED with shortness of breath for 1 week. Patient reports initially her shortness of breath would be relieved with medication/home inhalers and rescue inhalers. Gradually shortness of breath progressed, she was getting short of breath with minimal activity, and finally rescue inhaler would not provide her relief and hence he presented to the ED. She denies sore throat, reports cough since 1 day, dry in nature. She reports chest tightness and occasional wheezing. She reports appetite being okay, denies any acute changes in her bowel or bladder habit. Denies any headache or dizziness or chest pain or febrile episode. She reports she still smokes 3 to 4 cigarettes a day, has been smoking since age 15. Reports drinking 2 to 3 glasses of wine a day, denies recreational drug use. 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 Medications were discussed with the patient at bedside. Plan of care were discussed with the patient and her at bedside, they voiced understanding and were agreeable to plan of care. Full code Admission Exam Per Admitting Provider GENERAL: Alert and oriented x3. NAD, on 2L NC O2 HEENT: No pallor, no icterus. Pupils equal, round and reactive to light. Oral mucosa moist. NECK: No JVD, no neck masses. HEART: S1 and S2 heard. Regular rate and rhythm. No murmur, no gallop. RESPIRATORY SYSTEM: Normal AP diameter. No accessory muscle use. occasional wheezing, no crackles. decreased breath sounds. ABDOMEN: Soft, bowel sounds present, nontender, no distention. CENTRAL NERVOUS SYSTEM: No facial droop. Speech is clear. Obeys simple commands. Moves extremities. EXTREMITIES: No edema, no erythema seen. Principal Diagnosis COPD exacerbation Discharge Exam GENERAL: Alert and oriented x3. NAD, on 1L NC O2 HEENT: No pallor, no icterus. Pupils equal, round and reactive to light. Oral mucosa moist. NECK: No JVD, no neck masses. HEART: S1 and S2 heard. Regular rate and rhythm. No murmur, no gallop. RESPIRATORY SYSTEM: Normal AP diameter. No accessory muscle use. no wheezing, no crackles. decreased breath sounds b/l improving nicely. ABDOMEN: Soft, bowel sounds present, nontender, no distention. CENTRAL NERVOUS SYSTEM: No facial droop. Speech is clear. Obeys simple commands. Moves extremities. EXTREMITIES: No edema, no erythema seen. no tenderness or swelling noted BLE. Discharge Data Allergies Allergy/AdvReac Type Severity Reaction Status Date / Time latex Allergy Unknown Verified 01/27/22 08:49 codeine AdvReac Mild N/V, HEARS Verified 01/27/22 08:49 VIOCES Consultations 11/13/23 17:16 ED Decision to Admit Stat Ordered Studies 11/13/23 16:37 CT angio chest PE protocol Stat Hospital Course (1) COPD exacerbation: Plan COPD exacerbation Patient presenting with progressive worsening of shortness of breath associated with wheezing and dry cough. Admitting CTA chest and CXR with no acute finding. Admitting labs fairly WNL, VBG WNL, respiratory pathogen panel negative. Patient found relief after medications and steroid administration in the ED. Patient's shortness of breath and breathing status has been improving. To p.o. steroids on discharge, complete azithromycin course. Passed two-step test, no oxygen requirement. Patient will benefit from pulmonary function test in about 6 weeks time, patient to coordinate with PCP office to set up the test. Likely chronic elevation of d dimer: CTA chest neg. D dimer elevated at presentation, was elevated in the past as well. Other chronic medical conditions: HTN -continue with/resume home meds as and when able. Fairly under control. DVT prophylaxis: Lovenox Full code Patient is being discharged home with following instruction at the point of discharge: Follow-up with your primary care physician within a week time and likely you will need labs CBC/CMP/magnesium/phosphorus. You were admitted for COPD exacerbation, you will be discharged on tapering dose of steroid and azithromycin to complete the course. You will benefit by lung function test in about 6 weeks time, coordinate with your PCP office to set up the test. Take your medications as prescribed. Please make sure that you are able to get your medications today by calling your pharmacy before you leave the hospital so that your treatment continuity is not broken. [facility] Attestation I certify that this patient is under my care and that I, or a physicians executive sales assistant working with me, had a face to-face encounter that meets the [facility] [id number] encounter requirements with this patient. The encounter with the patient was in whole, or in part, for the following medical condition, which is the primary reason for home health care (list medical condition): I certify that, based on my findings, the following services are medically necessary home health services: My clinical findings support the need for the above services because: Further, I certify that my clinical findings support that this patient is homebound (i.e. absences from home require considerable and taxing effort and are for medical reasons or advent services or infrequently or of short duration when for other reasons) because: Certification for Home Health Services: Based on the above findings, I certify that this patient is confined to the home and needs intermittent shelter care, physical therapy and/or speech therapy or continues to need occupational therapy. The patient is under my care, and I have initiated the establishment of the plan of care. This patient will be followed by a physician who will periodically review the plan of care. Total Time Total Time Spent Total Time Spent (In Minutes): 45 Discharge Plan Discharge Items Patient Disposition: Home - Self-Care Reason For Visit: PROGRESSIVE WORSENING OF SOB Discharge Diagnosis: COPD exacerbation Activity: Resume your previous activity Non-emergency contact: Primary Care Provider Call non-emergency contact if: you have any medication questions, your symptoms worsen and your temperature is above 101 Follow-up/Referrals: Pipo Baird MD [Primary Care Provider] - (This previously made appointment is not enough time for a hospital follow up AND the reason this appointment was scheduled for. Therefore a hospital follow up appointment was also scheduled on 11/22 11/18/2023 6:40 PM Provider Tamica Geronimo PA-C Department [facility] Date & Time 11/23/2023 8:20 AM Provider Pipo Baird III, MD Department [facility] ) Diet: Regular Addtl Attending Provider Instructions: Follow-up with your primary care physician within a week time and likely you will need labs CBC/CMP/magnesium/phosphorus. You were admitted for COPD exacerbation, you will be discharged on tapering dose of steroid and azithromycin to complete the course. You will benefit by lung function test in about 6 weeks time, coordinate with your PCP office to set up the test. Take your medications as prescribed. Please make sure that you are able to get your medications today by calling your pharmacy before you leave the hospital so that your treatment continuity is not broken. Pending Studies at Discharge: No Stand-Alone Forms: My [facility], Smoking Cessation Medications and DC Order Prescriptions: New azithromycin 250 mg Tablet 250 mg PO QAM 1 Days Qty: 1 0RF guaifenesin [Mucinex] 600 mg Tablet Extended Release 12hr 600 mg PO Q12 5 Days Qty: 10 0RF prednisone 20 mg tablet 20 mg PO UD Qty: 8 0RF Rx Instructions: 40 mg daily for 3 days, then 20 mg daily for 2 days. Continued fluticasone propion-salmeterol [Advair Diskus] 250-50 mcg/dose blister with device 1 puff Inhalation BID lisinopril 10 mg tablet 10 mg PO QAM metoprolol succinate 25 mg tablet extended release 24 hr 25 mg PO QAM tiotropium bromide [Spiriva with HandiHaler] 18 mcg capsule, w/inhalation device 1 cap Inhalation QAM albuterol sulfate 1.25 mg/3 mL solution for nebulization 1.25 mg INH Q6H PRN (Reason: shortness of breath or wheezing) Qty: 90 3RF albuterol sulfate 90 mcg/actuation HFA aerosol inhaler 2 puff INHALATION Q6H PRN (Reason: sob) Discharge Orders: Discharge Order (Routine); Ordered 11/16/23 Ordered By: Julius Lowery Admission Data Admit Date/Time: 11/13/23 18:34 Attending Provider: Julius Lowery Admit Provider: Julius Lowery Primary Care Provider: Pipo Baird Other Providers: Becca Méndez
== END 2023-11-16 18:05 | disposition home or self-care (01) | DRG 192 ==
LOC: ED 14:35 → EDINP 18:34 → 2W 11-14 20:37

== ENCOUNTER 2024-09-23 22:11 | Inpatient (IN) ==
--- OUTSIDE RECORDS SUMMARY | 2024-09-23 22:16 | External Medical Summary | Summary of Care ---
Author Name Unknown Organization [facility] Address [address] [place] [address] Phone [phone] Care Team Providers Care Forensic Toxicologist Name Role Phone Oli LAU MD, Pipo Miller Primary Care Provider [phone] Reason for Visit * Reason Comments eRx-Medication Refill Encounter Details Date Type Department Care Team (Late st Contact Info) Description 08/19/2024 Refill General Internal Medicine [facility] [address] [facility] [place] [address] Salvador Kumar MD [address] [place] [address] COPD, group C, by GOLD 2017 classification (HCC) Allergies Active Allergy Reactions Criticality Noted Date Comments Codeine 09/29/2011 Nausea & vomiting Latex 01/27/2022 documented as of this encounter (statuses as of 08/20/2024) Medications guaiFENesin ER 600 MG Oral Tablet Extended Release 12 Hour (Mucinex) Take 1 Tablet by mouth in the morning and 1 Tablet before bedtime. For 5 days. Active Full Kit Nebulizer Set Use with Nebulizer Medication EVERY SIX HOURS WHILE AWAKE as directed. Dx Code: J44.9 1 Each 3 02/14/20 24 Active Metoprolol Succinate ER 25 MG Oral Tablet Extended Release 24 Hour (toPROL XL)Indications:El evated blood pressure, situational TAKE 1 TABLET BY MOUTH EVERY DAY 90 Tablet 1 05/16/20 24 Active Lisinopril 10 MG Oral Tablet (Prinivil)Indicat ions:HTN, goal below 140/90 TAKE 1 TABLET BY MOUTH EVERY DAY IN THE MORNING 90 Tablet 1 05/17/20 24 Active Ofloxacin 0.3 % Ophthalmic Solution (Ocuflox)Indicati ons:Redness of both eyes Instill 1 Drop into eye in the morning and 1 Drop at noon and 1 Drop in the evening and 1 Drop before bedtime. 5 mL 05/25/20 24 Active Fluticasone-Salme terol 250-50 MCG/ACT Inhalation Aerosol Powder Breath Activated (Wixela Inhub)Indications :COPD, moderate (HCC) TAKE 1 PUFF BY MOUTH TWICE A DAY 180 Each 1 05/25/20 24 Active Ipratropium-Albut ron 0.5-2.5 (3) MG/3ML Inhalation Solution (Duoneb)Indicatio ns:COPD, group C, by GOLD 2017 classification ([facility]),COPD, moderate ([facility]) Inhale 3 mL via nebulizer every 6 hours as needed for Wheezing. 360 mL 3 05/25/20 24 Active Albuterol Sulfate HFA 108 (90 Base) MCG/ACT Inhalation Aerosol SolutionIndicatio ns:COPD, group C, by GOLD 2017 classification ([facility]) INHALE 2 PUFFS BY MOUTH EVERY 6 HOURS NEEDED FOR SHORTNESS OF BREATH OR WHEEZING. 18 g 2 08/20/19 25 Active Albuterol Sulfate HFA 108 (90 Base) MCG/ACT Inhalation Aerosol SolutionIndicatio ns:COPD, group C, by GOLD 2017 classification ([facility]) Inhale 2 Puffs by mouth every 6 hours as needed for Shortness of Breath or Wheezing. 18 g 2 05/25/20 24 2024 Discontinued Hospital, Clinic, or Other Facility Administered Medication Ordered Dose Route Frequency Start Date End Date Status Albuterol Sulfate (Proventil) (2.5 MG/3ML) 0.083% inhalation solution 2.5 mgIndications:COPD, group C, by GOLD 2017 classification ([facility]) 2.5 mg NEBULIZER PRN 01/10/2024 Acti ve documented as of this encounter (statuses as of 08/20/2024) Active Problems Problem Noted Date Diagnosed Date [...] as of this encounter (statuses as of 08/20/2024) Resolved Problems Problem Noted Date Diagnosed Date [...] 07/01/2009 015 ADVANCE DIRECTIVE INFORMATION 04/19/2007 06/22/2021 Overview (04/19/2007): No, Advance Directive brochure given to patient. documented as of this encounter (statuses as of 08/20/2024) Immunizations Name Administration Dates Next Due COVID-19 mRNA, LNP-s, No Pre serve, 2-Dose Series ([employer]) 04/16/2021,09/07/2020,08/17/2020 H1N1 2009 Influenza, IM 06/15/2009 Pneumococcal Conjugate Vacci ne, 20-valent ([id number]) 11/23/2023 Pneumococcal Polysaccharide PPV23 (Pneumovax) 07/15/2009 Seasonal Influenza, PF, 6 M & above, IM , (FluLaval or Fluzone) 04/27/2021 TDAP (age 10 and older)(Boostrix) 11/23/2023 TDAP, Age 7 and older, IM (Adacel) 07/27/2008 Zoster Vaccine Recombinant (Shingrix) 06/24/2021 ,04/27/2021 documented as of this encounter Social History Tobacco Use Types Packs/Day Years Used Date Smoking Tobacco: Every Day Cigarettes 0.2 41 Smokeless Tobacco: Never Comments:02/14/24 currently smoking 2 cig/day. 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 Not on file Not on file Not on file Not on file Not on file Not on file Not on file documented as of this encounter Miscellaneous Notes * Telephone Encounter - Billie Hearn RPh - 08/20/2024 11:23 AM EST Signed Prescriptions: Disp Refills Albuterol Sulfate HFA 108 (90 Base) MCG/AC*18 g 2 Sig: INHALE 2PUFFS BY MOUTH EVERY 6 HOURS NEEDED FOR SHORTNESS OF BREATH OR WHEEZING.Authorizing Provider: SALVADOR KUMAR User: BILLIE HEARN documented in this encounter Plan of Treatment Scheduled Procedures Name Priority Associated Diagnoses Date/Ti me COLONOSCOPY FLEXIBLE PROXIMAL DIAGNOSTIC Recall Screen for colon cancer Health Maintenance Due Date Last Done Comments Alpha-1 Antitrypsin 1981 Cologuard 2008 Fecal Occult Blood Test 2008 Sigmoidoscopy 2008 *ADVANCE DIRECTIVE NOT ON FILE 12/28/2021 Lipid Panel 01/02/2022 01/02/2017, 10/12/2011 GFR 04/27/2022 04/27/2021, 11/09, 11/15/2017, Additional history exists Colonoscopy 12/29/2022 12/29/2012, 12/29/2012 Colorectal Cancer Screening 12/29/2022 DISCUSS TOBACCO CESSATION (REFER TO SMARTSET #[id number]) 01/22/2023 01/22/2022 COVID-19 Vaccine ( season) 2024 04/16/2021, 09/07/2020, 08/17/2020 Influenza Vaccine (FLU shot) (#1) 2024 04/27/2021, 06/15/2009, 04/25/2003 Diabetes Screening 04/27/2024 04/27/2021, 0 11/18/2017, 11/15/2017, Additional history exists Mammogram 01/10/2025 01/11/2024, 11/10, 08/04/2010, Additional history exists Depression Screening 02/22/2025 02/23/2024 O2 ASSESSMENT COMPLETED IN PAST YEAR FOR COPD 05/25/2025 05/25/2024 Albumin/Creatinine Ratio 11/22/2026 11/23/2023 DTap/Tdap Vaccines (3 - Td or Tdap) 11/22/2033 11/23/2023, 07/27/2008, 07/12/1995 Hepatitis B Vaccine Completed 04/25/2002, 04/23/2001, 02/17/2001 Zoster Vaccines Completed 06/24/2021, 04/27/2021 Pneumococcal Vaccine: 50+ Years Completed 11/23/2023, 07/15/2009 HPV (Gardasil) Vaccine Aged Out No lo nger eligible based on patient's age to complete this topic MENINGOCOCCAL (MENACTRA/MENVEO) Aged Out No longer eligible based on patient's age to complete this topic documented as of this encounter Medical Devices Not on filedocumented as of this encounter Visit Diagnoses Diagnosis COPD, group C, by GOLD 2017 classification (HCC) documented in this encounter Care Teams Forensic Toxicologist Relationship Specialty Start Date End Date Pipo Baird III, MD PCP - General 01/11/08 documented as of this encounter
--- OUTSIDE RECORDS SUMMARY | 2024-09-23 22:16 | External Medical Summary | Summary of Care ---
Author Name Unknown Organization [facility] Address [address] [place] [address] Phone [phone] Care Team Providers Care Healthcare Receptionist Name Role Phone Oli LAU MD, Pipo Miller Primary Care Provider [phone] Reason for Visit * Reason Onset Date Comments Test Results 08/25/2024 Returning call Encounter Details Date Type Department Care Team (Late st Contact Info) Description 08/25/2024 Telephone General Internal Medicine [facility] [address] [place] [address] Nicol Jimenez PA-C [address] [place] [address] Test Results (Returning call) Allergies Active Allergy Reactions Criticality Noted Date Comments Codeine 09/29/2011 Nausea & vomiting Latex 01/27/2022 documented as of this encounter (statuses as of 08/25/2024) Medications guaiFENesin ER 600 MG Oral Tablet Extended Release 12 Hour (Mucinex) Take 1 Tablet by mouth in the morning and 1 Tablet before bedtime. For 5 days. Active Full Kit Nebulizer Set Use with Nebulizer Medication EVERY SIX HOURS WHILE AWAKE as directed. Dx Code: J44.9 1 Each 3 4 Active Metoprolol Succinate ER 25 MG Oral Tablet Extended Release 24 Hour (toPROL XL)Indications:Lauren vated blood pressure, situational TAKE 1 TABLET BY MOUTH EVERY DAY 90 Tablet 1 4 Active Lisinopril 10 MG Oral Tablet (Prinivil)Indicati ons:HTN, goal below 140/90 TAKE 1 TABLET BY MOUTH EVERY DAY IN THE MORNING 90 Tablet 1 4 Active Ofloxacin 0.3 % Ophthalmic Solution (Ocuflox)Indicatio ns:Redness of both eyes Instill 1 Drop into eye in the morning and 1 Drop at noon and 1 Drop in the evening and 1 Drop before bedtime. 5 mL 4 Active Fluticasone-Salmet ron 250-50 MCG/ACT Inhalation Aerosol Powder Breath Activated (Wixela Inhub)Indications: COPD, moderate ([facility]) TAKE 1 PUFF BY MOUTH TWICE A DAY 180 Each 1 4 Active Ipratropium-Albute rol 0.5-2.5 (3) MG/3ML Inhalation Solution (Duoneb)Indication s:COPD, group C, by GOLD 2017 classification ([facility]),COPD, moderate ([facility]) Inhale 3 mL via nebulizer every 6 hours as needed for Wheezing. 360 mL 3 4 Active Albuterol Sulfate HFA 108 (90 Base) MCG/ACT Inhalation Aerosol SolutionIndication s:COPD, group C, by GOLD 2017 classification ([facility]) INHALE 2 PUFFS BY MOUTH EVERY 6 HOURS NEEDED FOR SHORTNESS OF BREATH OR WHEEZING. 18 g 2 5 Active predniSONE 20 MG Oral Tablet (Deltasone) Take 3 tabs for 3 days, 2 tabs for 3 days, 1 tab for 3 days, 1/2 tab for 3 days 20 Tablet 5 Active Benzonatate 100 MG Oral Capsule (Tessalon Perljeramy) Take 1 Capsule by mouth 3 times a day as needed for Cough. Do not cut, crush, or chew. 30 Capsule 5 Active Hospital, Clinic, or Other Facility Administered Medication Ordered Dose Route Frequency Start Date End Date Status Albuterol Sulfate (Proventil) (2.5 MG/3ML) 0.083% inhalation solution 2.5 mgIndications:COPD, group C, by GOLD 2017 classification ([facility]) 2.5 mg NEBULIZER PRN 01/10/2024 Acti ve documented as of this encounter (statuses as of 08/25/2024) Active Problems Problem Noted Date Diagnosed Date [...] as of this encounter (statuses as of 08/25/2024) Resolved Problems Problem Noted Date Diagnosed Date [...] as of this encounter (statuses as of 08/25/2024) Immunizations Name Administration Dates Next Due COVID-19 mRNA, LNP-s, No Pre serve, 2-Dose Series (GoHome) 04/16/2021,09/07/2020,08/17/2020 H1N1 2009 Influenza, IM 06/15/2009 Hepatitis B, 20+ yrs 04/25/2002,04/23/2001,02/17 PPD 04/07/2004,04/25/2003,02/17/2001 Pneumococcal Conjugate Vacci ne, 20-valent ([id number]) 11/23/2023 Pneumococcal Polysaccharide PPV23 (Pneumovax) 07/15/2009 Seasonal Influenza Vac., MDV , IM, 0.5 mL (Fluzone) 04/25/2003 Seasonal Influenza, PF, 6 M & above, IM , (FluLaval or Fluzone) 04/27/2021 TD - Tetanus/Diptheria (ADULT) 07/12/1995 TDAP (age 10 and older)(Boostrix) 11/23/2023 TDAP, [...] encounter Miscellaneous Notes * Telephone Encounter - Jojo Anderson LPN - 08/25/2024 8:51 AM EST Patient is aware and verbalizes understanding. * Telephone Encounter - Delfina Johnson OSA - 08/25/2024 8:50 AM EST Reason for patient's call: Returning call Caller was transferred to [facility] at the nurse line. * Telephone Encounter - Debbie Saha CCMA - 08/25/2024 8:47 AM EST Called pt and left to return phone call * Telephone Encounter - Debbie Saha CCMA - 08/25/2024 8:46 AM EST ----- Message from Nicol Jimenez sent at 08/25/2024 8:14 AM EST ----- Pt's respiratory screening positive for RSV. Would continue with the prednisone taper and nebulizer/inhalers as discussed. Will f/up with her later this month as sched to recheck. documented in this encounter Plan of Treatment Upcoming Encounters Date Type Department Care Team (Late st Contact Info) Description 09/04/2024 2:40 PM EST Office Visit General Internal Medicine [address] [place] [address] Nicol Jimenez PA-C [address] [facility] [place] [address] Scheduled Procedures Name Priority Associated Diagnoses Date/Ti [...] ASSESSMENT COMPLETED IN PAST YEAR FOR COPD 08/24/2025 08/24/2024 Albumin/Creatinine Ratio 11/22/2026 11/23/2023 DTap/Tdap Vaccines (3 [...] on patient's age to complete this topic Meningitis B Vaccine (Bexsero/Trumemba) Aged Out No longer eligible based on patient's age to complete this topic documented as of this encounter Medical Devices Not on filedocumented as of this encounter Additional Health Concerns Infection Onset Date Last Indicated Resolved Time RSV 08/24/2024 08/24/2024 documented as of this encounter Care Teams Healthcare Receptionist Relationship Specialty Start Date End Date Oli JUDI, Pipo Miller MD PCP - General 01/11/08 documented as of this encounter
--- OUTSIDE RECORDS SUMMARY | 2024-09-23 22:16 | External Medical Summary | Summary of Care ---
Author Name Unknown Organization [facility] Address [address] [place] [address] Phone [phone] Care Team Providers Care Forklift Wheel Loader Name Role Phone Oli LAU MD, Pipo Miller Primary Care Provider [phone] Reason for Visit * Reason Onset Date Comments Test Results 08/25/2024 Returning call Encounter Details Date Type Department Care Team (Late st Contact Info) Description 08/25/2024 Telephone General Internal Medicine [facility] [address] [place] [address] Nicol Jimenez PA-C [address] [place] [address] Test Results (Returning call) Allergies Active Allergy [...] Oral Tablet Extended Release 24 Hour (toPROL XL)Indications:Lauern vated blood pressure, situational TAKE 1 TABLET [...] Powder Breath Activated (Wixela Inhub)Indications: COPD, moderate ([facility]) TAKE 1 PUFF BY MOUTH TWICE A DAY 180 Each 1 4 Active Ipratropium-Albute rol 0.5-2.5 (3) MG/3ML Inhalation Solution (Duoneb)Indication s:COPD, group C, by GOLD 2017 classification ([facility]),COPD, moderate ([facility]) Inhale 3 mL via nebulizer every 6 hours as needed for Wheezing. 360 mL 3 4 Active Albuterol Sulfate HFA 108 (90 Base) MCG/ACT Inhalation Aerosol SolutionIndication s:COPD, group C, by GOLD 2017 classification ([facility]) INHALE 2 PUFFS BY MOUTH EVERY 6 [...] mgIndications:COPD, group C, by GOLD 2017 classification ([facility]) 2.5 mg NEBULIZER PRN 01/10/2024 Acti ve [...] mRNA, LNP-s, No Pre serve, 2-Dose Series (Postabon) 04/16/2021,09/07/2020,08/17/2020 H1N1 2009 Influenza, IM 06/15/2009 Hepatitis B, 20+ yrs 04/25/2002,04/23/2001,02/17 PPD 04/07/2004,04/25/2003,02/17/2001 Pneumococcal Conjugate Vacci ne, 20-valent ([id number]) 11/23/2023 Pneumococcal Polysaccharide PPV23 (Pneumovax) 07/15/2009 Seasonal [...] call: Returning call Caller was transferred to [facility] at the nurse line. * Telephone [...] PM EST Office Visit General Internal Medicine [address] [place] [address] Nicol Jimenez PA-C 200 [facility] [place] [address] Scheduled Procedures Name Priority Associated Diagnoses Date/Ti [...] documented as of this encounter Care Teams Forklift Wheel Loader Relationship Specialty Start Date End Date Oli JUDI, Pipo Miller MD PCP - General 01/11/08 documented as of this encounter
--- OUTSIDE RECORDS SUMMARY | 2024-09-23 22:16 | External Medical Summary ---
Author Name Unknown Address Unknown Organization [id number]:[facility] - [address] [facility] [address] Laboratory Report Ordering Provider Test Date Status MAO CONKLIN 08/24/2024 10:42:52 Final Observation Date Value Abnormality Reference (Units ) Status SARS Coronavirus 2 08/24/2024 10:42:52 Negative N egative Final No SARS-CoV2 Coronavirus RNA detected by PCR (amplified probe).
This automated test was developed and its performance characteristics determined by [facility]. It has not been cleared or approved by the U.S. Food and Drug Administration (FDA). FDA does not require this test to go thru premarket FDA review. This test is used for clinical purposes. It should not be regarded as investigational or for research. This laboratory is certified under the Clinical Laboratory Improvement Amendments (CLIA) as qualified to perform high complexity clinical laboratory testing.

This test is a nucleic acid amplification test (NAAT), a reverse transcriptase polymerase chain reaction (RT-PCR) test, or a Centers for Disease Control-acceptable equivalent. The test is performed in a high complexity Clinical Laboratory Improvement Amendments-(CLIA) certified laboratory. The test is acceptable for SARS-CoV-2 diagnosis, surveillance, and travel within the [place] and to most countries. Please check with local testing authorities about requirements before travel.

The validation of bronchial specimens, tracheal aspirates, and sputum for this assay was developed and performance characteristics determined by [facility]. The validation of alternate specimen types has not been cleared or approved by the U.S. Food and Drug Administration (FDA). It has been determined that such clearance or approval is not necessary. Influenza virus A RNA [Prese nce] in Specimen by RDUY with probe detection 08/24/2024 10:42:52 Negative Negative Final No Influenza A RNA detected by PCR (amplified probe) Influenza virus B RNA [Prese nce] in Specimen by RUDY with probe detection 08/24/2024 10:42:52 Negative Negative Final No Influenza B RNA detected by PCR (amplified probe) Respiratory syncytial virus RNA [Identifier] in Specimen by RUDY with probe detection 08/24/2024 10:42:52 Positive Abnormal Negative Final Respiratory Syncytial Virus RNA detected by PCR (amplified probe). Test results reported to [facility]. Performing Location [facility] - [facility] [address] [place] [facility] [place], [place] [address]
--- OUTSIDE RECORDS SUMMARY | 2024-09-23 22:16 | External Medical Summary | Summary of Care ---
Author Name Unknown Organization [facility] Address [address] [place] [address] Phone [phone] Care Team Providers Care Director Of Consumer Marketing Name Role Phone Oli LAU MD, Pipo Miller Primary Care Provider [phone] Reason for Visit * Reason Onset Date Comments Test Results 08/25/2024 Returning call Encounter Details Date Type Department Care Team (Late st Contact Info) Description 08/25/2024 Telephone General Internal Medicine [facility] [address] [place] [address] iNcol Jimenez PA-C [address] [place] [address] Test Results (Returning call) Allergies Active Allergy [...] Powder Breath Activated (Wixela Inhub)Indications: COPD, moderate ([facility]) TAKE 1 PUFF BY MOUTH TWICE A DAY 180 Each 1 4 Active Ipratropium-Albute rol 0.5-2.5 (3) MG/3ML Inhalation Solution (Duoneb)Indication s:COPD, group C, by GOLD 2017 classification ([facility]),COPD, moderate ([facility]) Inhale 3 mL via nebulizer every 6 hours as needed for Wheezing. 360 mL 3 4 Active Albuterol Sulfate HFA 108 (90 Base) MCG/ACT Inhalation Aerosol SolutionIndication s:COPD, group C, by GOLD 2017 classification ([facility]) INHALE 2 PUFFS BY MOUTH EVERY 6 [...] mgIndications:COPD, group C, by GOLD 2017 classification ([facility]) 2.5 mg NEBULIZER PRN 01/10/2024 Acti ve [...] mRNA, LNP-s, No Pre serve, 2-Dose Series (ActionIQ) 04/16/2021,09/07/2020,08/17/2020 H1N1 2009 Influenza, IM 06/15/2009 Hepatitis B, 20+ yrs 04/25/2002,04/23/2001,02/17 PPD 04/07/2004,04/25/2003,02/17/2001 Pneumococcal Conjugate Vacci ne, 20-valent ([id number]) 11/23/2023 Pneumococcal Polysaccharide PPV23 (Pneumovax) 07/15/2009 Seasonal [...] call: Returning call Caller was transferred to [facility] at the nurse line. * Telephone Encounter [...] PM EST Office Visit General Internal Medicine [address] [place] [address] Nicol Jimenez PA-C 200 [facility] [place] [address] Scheduled Procedures Name Priority Associated Diagnoses Date/Ti [...] documented as of this encounter Care Teams Director Of Consumer Marketing Relationship Specialty Start Date End Date Oli JUDI, Pipo Miller MD PCP - General 01/11/08 documented as of this encounter
--- OUTSIDE RECORDS SUMMARY | 2024-09-23 22:16 | External Medical Summary | Summary of Care ---
Author Name Unknown Organization [facility] Address [address] [place] [address] Phone [phone] Care Team Providers Care Lusterer Name Role Phone Oli LAU MD, Pipo Miller Primary Care Provider [phone] Reason for Visit * Reason Onset Date Comments Test Results 08/25/2024 Returning call Encounter Details Date Type Department Care Team (Late st Contact Info) Description 08/25/2024 Telephone General Internal Medicine [facility] [address] [place] [address] Nicol Jimenez PA-C [address] [place] [address] Test Results (Returning call) Allergies Active Allergy [...] Powder Breath Activated (Wixela Inhub)Indications: COPD, moderate ([facility]) TAKE 1 PUFF BY MOUTH TWICE A DAY 180 Each 1 4 Active Ipratropium-Albute rol 0.5-2.5 (3) MG/3ML Inhalation Solution (Duoneb)Indication s:COPD, group C, by GOLD 2017 classification ([facility]),COPD, moderate ([facility]) Inhale 3 mL via nebulizer every 6 hours as needed for Wheezing. 360 mL 3 4 Active Albuterol Sulfate HFA 108 (90 Base) MCG/ACT Inhalation Aerosol SolutionIndication s:COPD, group C, by GOLD 2017 classification ([facility]) INHALE 2 PUFFS BY MOUTH EVERY [...] C, by GOLD 2017 classification ([facility]) 2.5 mg NEBULIZER PRN 01/10/2024 Acti [...] mRNA, LNP-s, No Pre serve, 2-Dose Series (onkea) 04/16/2021,09/07/2020,08/17/2020 H1N1 2009 Influenza, IM 06/15/2009 Hepatitis B, 20+ yrs 04/25/2002,04/23/2001,02/17 PPD 04/07/2004,04/25/2003,02/17/2001 Pneumococcal Conjugate Vacci ne, 20-valent ([id number]) 11/23/2023 Pneumococcal Polysaccharide PPV23 (Pneumovax) 07/15/2009 Seasonal [...] call: Returning call Caller was transferred to [facility] at the nurse line. * Telephone Encounter [...] PM EST Office Visit General Internal Medicine [address] [place] [address] Nicol Jimenez PA-C [address] [place] [address] Scheduled Procedures Name Priority Associated Diagnoses Date/Ti [...] documented as of this encounter Care Teams Lusterer Relationship Specialty Start Date End Date Oli JUDI, Pipo Miller MD PCP - General 01/11/08 documented as of this encounter
--- OUTSIDE RECORDS SUMMARY | 2024-09-23 22:16 | External Medical Summary | Summary of Care ---
Author Name Unknown Organization [facility] Address [address] [place] [address] Phone [phone] Care Team Providers Care Assembly Leader Name Role Phone Oli LAU MD, Pipo Miller Primary Care Provider [phone] Reason for Visit * Reason Comments Congestion Encounter Details Date Type Department Care Team (Latest Contact Info) Description 08/24/2024 10:20 AM EST Office Visit General Internal Medicine [facility] [address] [place] [address] Nicol Jimenez PA-C [address] [place] [address] Acute URI*; COPD, group D, by GOLD 2017 classification ([facility]) Allergies Active Allergy Reactions Criticality Noted Date Comments Codeine 09/29/2011 Nausea & vomiting Latex 01/27/2022 documented as of this encounter (statuses as of 08/24/2024) Medications guaiFENesin ER 600 MG Oral Tablet [...] Powder Breath Activated (Wixela Inhub)Indications: COPD, moderate ([facility]) TAKE 1 PUFF BY MOUTH TWICE A DAY 180 Each 1 4 Active Ipratropium-Albute rol 0.5-2.5 (3) MG/3ML Inhalation Solution (Duoneb)Indication s:COPD, group C, by GOLD 2017 classification ([facility]),COPD, moderate ([facility]) Inhale 3 mL via nebulizer every 6 hours as needed for Wheezing. 360 mL 3 4 Active Albuterol Sulfate HFA 108 (90 Base) MCG/ACT Inhalation Aerosol SolutionIndication s:COPD, group C, by GOLD 2017 classification ([facility]) INHALE 2 PUFFS BY MOUTH EVERY 6 HOURS NEEDED FOR SHORTNESS OF BREATH OR WHEEZING. 18 g 2 5 Active predniSONE 20 MG Oral Tablet (Deltasone) Take 3 tabs for 3 days, 2 tabs for 3 days, 1 tab for 3 days, 1/2 tab for 3 days 20 Tablet 5 Active Benzonatate 100 MG Oral Capsule (Tessalon Perles) Take 1 Capsule by mouth 3 times a day as needed for Cough. Do not cut, crush, or chew. 30 Capsule 5 Active Hospital, Clinic, or Other Facility Administered Medication Ordered Dose Route Frequency Start Date End Date Status Albuterol Sulfate (Proventil) (2.5 MG/3ML) 0.083% inhalation solution 2.5 mgIndications:COPD, group C, by GOLD 2017 classification ([facility]) 2.5 mg NEBULIZER PRN 01/10/2024 Acti ve documented as of this encounter (statuses as of 08/24/2024) Active Problems Problem Noted Date Diagnosed Date [...] as of this encounter (statuses as of 08/24/2024) Resolved Problems Problem Noted Date Diagnosed Date [...] as of this encounter (statuses as of 08/24/2024) Immunizations Name Administration Dates Next Due COVID-19 mRNA, LNP-s, No Pre serve, 2-Dose Series (Pfizer) 04/16/2021,09/07/2020,08/17/2020 H1N1 2009 Influenza, IM 06/15/2009 Pneumococcal Conjugate Vacci ne, 20-valent ([id number]) 11/23/2023 Pneumococcal Polysaccharide PPV23 (Pneumovax) 07/15/2009 Seasonal [...] on file documented as of this encounter Last Filed Vital Signs Vital Sign Reading Time Taken Comments Blood Pressure 152/92 08/24/2024 10:09 AM EST Pulse 119 08/24/2024 10:09 AM EST Temperature 38.2 C (100.7 F) 08/24/2024 10:09 AM EST Respiratory Rate - - Oxygen Saturation 89% 08/24/2024 10:09 AM EST Inhaled Oxygen Concentration - - Weight 75.3 kg (166 lb 1.6 oz) 08/24/2024 10:09 AM EST Height - - Body Mass Index 32.44 05/25/2024 2:15 PM EST documented in this encounter Progress Notes * Nicol Jimenez PA-C - 08/24/2024 10:26 AM EST Images from the original note were not included. History of Present Illness Lynda Vogt is a 59 year old female that presents for Congestion Upper Respiratory Infection This is a new problem. The current episode started in the past 7 days (4 days ago). The problem hasbeen unchanged. The maximum temperature recorded prior to her arrival was 100.4 - 100.9 F. Associated symptoms include congestion, coughing, headaches, joint pain, sinus pain, a sore throat and wheezing. Pertinent negatives include no chest pain, diarrhea, nausea or vomiting. She has tried inhaler use (Mucinex, Nyquil) for the symptoms. Review of Systems: See HPI for pertinent positives. All other review of systems is negative. Physical Exam Vitals: 08/24/24 1009 Temp: (!) 100.7 F (38.2 C) Pulse: 119 SpO2: 89% BP: 152/92 Physical Exam Constitutional: General: She is not in acute distress. Appearance: She is not diaphoretic. HENT: Right Ear: Tympanic membrane, ear canal and external ear normal. Left Ear: Tympanic membrane, ear canal and external ear normal. Mouth/Throat: Mouth: Mucous membranes are moist. Pharynx: Oropharynx is clear. Posterior oropharyngeal erythema present. Cardiovascular: Rate and Rhythm: Normal rate and regular rhythm. Pulmonary: Effort: Pulmonary effort is normal. Breath sounds: Wheezing present. Abdominal: General: Bowel sounds are normal. Palpations: Abdomen is soft. Musculoskeletal: Cervical back: Normal range of motion and neck supple. Skin: General: Skin is warm and dry. Neurological: General: No focal deficit present. Mental Status: She is alert. Mental status is at baseline. I have reviewed the following results: Assessment and Plan Acute URI Quad resp screen sent. Prednisone taper and PRN tessalon ordered. Continue use of inh and nebulizerPRN. F/up in 1 week to reassess. - INFLUENZA A/B RSV SARS-COV2,PCR COPD, group D, by GOLD 2017 classification ([facility]) Wrap-Up Follow Up: Return in about 1 week (around 08/31/2024) for Return with AP. | For: Return with AP Time: I spent a total of 10-19 minutes (exact time 18 mins) on the date of service in preparation, delivery, and documentation of the care provided to Lynda Vogt excluding any time spent in the performance of separately billed services. documented in this encounter Nursing Notes * SahaDebbie madrigal CCMA - 08/24/2024 10:04 AM EST Pt is here today for sickness pt stated it all started Wednesday night pt no for fevers but had chillsand a bad cough and headache pt stated her chest is tight pt is taking medication OTC and her rx medication pt stated she feels worse today pt stated she has COPD pt did not do a covid or flu test athome pt does work around people a lot pt did not take her medication this morning documented in this encounter Plan of Treatment Upcoming Encounters Date Type Department Care Team (Late st Contact Info) Description 09/04/2024 2:40 PM EST Office Visit General Internal Medicine [facility] [place] [address] [facility] [place] [address] Nicol Jimenez PA-C 200 [facility] [place] [address] Pending Results Name Type Priority Associated Diagnoses Date /Time INFLUENZA A/B RSV SARS-COV2,PCR Lab Routine Acute URI 08/24/2024 10:42 AM EST Scheduled Procedures Name Priority Associated Diagnoses Date/Ti pr COLONOSCOPY FLEXIBLE PROXIMAL DIAGNOSTIC Recall Screen for colon cancer Health Maintenance Due Date Last Done Comments Alpha-1 Antitrypsin 1981 Cologuard 2008 Fecal Occult Blood Test 2008 Sigmoidoscopy 2008 *ADVANCE DIRECTIVE NOT ON FILE 12/28/2021 Lipid Panel 01/02/2022 01/02/2017, 10/12/2011 GFR 04/27/2022 04/27/2021, 11/09, 11/15/2017, Additional history exists Colonoscopy 12/29/2022 12/29/2012, 12/29/2012 Colorectal Cancer Screening 12/29/2022 DISCUSS TOBACCO CESSATION (REFER TO SMARTSET #[id number]) 01/22/2023 01/22/2022 COVID-19 Vaccine ( season) 2024 [...] as of this encounter Visit Diagnoses Diagnosis Acute URI- Primary Acute upper respiratory infections of unspecified site COPD, group D, by GOLD 2017 classification ([facility]) documented in this encounter Care Teams Assembly Leader Relationship Specialty Start Date End Date Pipo Baird III, MD PCP - General 01/11/08 documented as of this encounter"
[2024-09-23] MEDS: methylPREDNISolone 125 MG/2 ML VIAL IV STA (22:53)
[2024-09-23] MEDS: ACETAMINOPHEN 1,000 MG/100 ML VIAL IV STA (22:53)
--- NOTE | 2024-09-23 22:53 | Emergency Department Note ---
History of Present Illness General Chief complaint: Shortness of Breath/Dyspnea Stated complaint: COLD, COPD, SOB Time Seen by Provider: 09/23/24 22:26 History of Present Illness This 59-year-old female with a history of PE no longer on anticoagulation with COPD who just travel to [place] and back presents ER for cough, congestion, dyspnea for the past few days. Patient denies abdominal pain, vomiting, diarrhea. She did not realize she had a low-grade temperature. She tried home nebulizers with no improvement of symptoms. Home Medications Medication Instructions Recorded Confirmed Type albuterol sulfate 1.25 mg/3 mL 1.25 mg (3 mL) inhalation Q6H PRN 08/29/18 09/24/24 Rx solution for nebulization shortness of breath or wheezing #90 mL fluticasone 250 mcg-salmeterol 50 1 puff inhalation BID 08/29/18 09/24/24 History mcg/dose blistr powdr for inhalation lisinopril 10 mg tablet 10 mg PO QAM 08/29/18 09/24/24 History metoprolol succinate 25 mg 25 mg PO QAM 08/29/18 09/24/24 History tablet,extended release 24 hr albuterol sulfate 90 mcg/actuation 2 puff inhalation Q6H PRN sob 11/13/23 09/24/24 History aerosol inhaler ipratropium 0.5 mg-albuterol 3 mg 3 ml inhalation Q6 PRN Wheezing 09/24/24 09/24/24 History (2.5 mg base)/3 mL nebulization soln Allergies Allergy/AdvReac Type Severity Reaction Status Date / Time latex Allergy Unknown Unknown Verified 09/24/24 00:21 codeine AdvReac Mild N/V, HEARS Verified 09/24/24 00:21 VIOCES Past Med/Surg History Problem List (Updated 09/23/24 @ 23:59 by Thea Arellano PA-C) Parainfluenza infection (Acute) Type 2 acute myocardial infarction (Acute) Acute exacerbation of chronic obstructive airways disease (Acute) Cervical adenopathy (Chronic) Medical History Calcified granuloma of lung "RUL" Pulmonary embolism HTN (hypertension) Tobacco use disorder COPD (chronic obstructive pulmonary disease) History of asthma Surgical History History of breast augmentation S/P ACL reconstruction History of hysterectomy Family History Other Diabetes Hypertension Lung disease Social History Smoking Status: Never smoker Tobacco Type: Cigarettes Hx Alcohol Use: Yes Alcohol type: wine Hx Substance Use: No Preferred Language: Azeri Communication Ability: Effective Quality Control Checker Required: No Beliefs That Will Affect Care: None marital status: Current Living Situation: Spouse and Parent current occupational status: employed Feels Safe at Home: Yes Assistive Devices: Nebulizer Review of Systems A total of 10 systems reviewed and were otherwise negative Physical Exam Vital Signs Vital Signs - 24 hr 09/23/24 22:17 09/23/24 22:30 09/23/24 22:42 Temperature 37.7 C H Temperature Source Temporal Artery Scan Pulse Rate 125 H 120 H Pulse Rate [Apical] Pulse Rate from SpO2 Sensor Pulse Rhythm Regular Pulse Strength Normal Respiratory Rate 20 Respiratory Effort / Characteristics Labored Blood Pressure 186/107 H Blood Pressure [Left Arm] Blood Pressure Mean 133 Blood Pressure Mean [Left Arm] Blood Pressure Position Sitting Pulse Oximetry 88 L 80 L Oxygen Delivery Method Room Air Nasal Cannula Oxygen Flow Rate 0 Sepsis Recent Fever Within 48 Hours No Sepsis New/Unexplained Change in Mental Status N/A Sepsis Action Taken by Nursing No Action Required Oxygen Flow Rate - Titration 2 Pulse Oximetry Post Tiitration 94 09/23/24 22:42 09/23/24 23:21 09/23/24 23:39 Temperature Temperature Source Pulse Rate 119 H 116 H 117 H Pulse Rate [Apical] Pulse Rate from SpO2 Sensor 115 H Pulse Rhythm Pulse Strength Respiratory Rate 34 H 32 H 22 Respiratory Effort / Characteristics Blood Pressure 165/108 H 180/113 H 178/99 H Blood Pressure [Left Arm] Blood Pressure Mean 128 126 125 Blood Pressure Mean [Left Arm] Blood Pressure Position Pulse Oximetry 92 98 95 Oxygen Delivery Method Nasal Cannula Nasal Cannula Nasal Cannula Oxygen Flow Rate 2 2 2 Sepsis Recent Fever Within 48 Hours Sepsis New/Unexplained Change in Mental Status Sepsis Action Taken by Nursing Oxygen Flow Rate - Titration Pulse Oximetry Post Tiitration 09/24/24 00:02 09/24/24 00:03 09/24/24 00:08 Temperature 37.0 C Temperature Source Oral Pulse Rate 106 H Pulse Rate [Apical] 113 H Pulse Rate from SpO2 Sensor Pulse Rhythm Pulse Strength Respiratory Rate 21 20 Respiratory Effort / Characteristics Non-Labored SOB on Exertion Blood Pressure Blood Pressure [Left Arm] 159/96 H Blood Pressure Mean Blood Pressure Mean [Left Arm] 117 Blood Pressure Position Pulse Oximetry 96 96 Oxygen Delivery Method Nasal Cannula Nasal Cannula Oxygen Flow Rate 2 2 Sepsis Recent Fever Within 48 Hours Sepsis New/Unexplained Change in Mental Status Sepsis Action Taken by Nursing Oxygen Flow Rate - Titration Pulse Oximetry Post Tiitration VITALS: Vitals are noted on the nurse's note and reviewed by myself. Vital signs febrile and pulse ox was 88% which improved on nasal cannula. GENERAL: Pleasant female coughing who appears short of breath, in no acute distress, nondiaphoretic, well-developed well-nourished. SKIN: The skin was without rashes, erythema, edema, or bruising. There is no tenting of the skin. Capillary reflex less than 2 seconds. HEAD: Normocephalic atraumatic. EARS: External auditory canals clear EYES: Pupils equal round and reactive to light and accommodation. Conjunctivae without injection, sclerae without icterus. Extraocular movements intact. NOSE: Patent, no discharge. MOUTH: Mucous membranes moist. Pharynx without erythema or exudate. Uvula midline. Airway patent. Tongue does not deviate. NECK: Supple without nuchal rigidity. No lymphadenopathy. No thyromegaly. Cervical spine is nontender. No JVD. HEART: Regular rate and rhythm LUNGS: Diffuse inspiratory and end expiratory wheezes. No retractions or accessory muscle use. ABDOMEN: Positive bowel sounds x 4. Normal tympanic percussion. Soft, nontender, without masses or organomegaly. Millard sign negative. No guarding or rebound tenderness. No CVA tenderness MUSCULOSKELETAL: No muscle atrophy, erythema, or edema noted. Left calf tenderness. NEURO: Patient was alert and oriented to person place and time. Normal sensation to light and sharp touch. No focal neurological deficits. Course Administered Medications Discontinued Medications Albuterol (Albut/Ipratrop 3mg/0.5mg Neb 3 Ml Vial) 3 ml NEB NOW STA; Protocol Stop: 09/23/24 22:32 Last Admin: 09/23/24 22:54 Dose: 3 ml Documented By: PORTER Piperacillin Sod/Tazobactam Sod (Zosyn) 4.5 gm in 100 mls @ 200 mls/hr IV NOW ONE; Protocol Stop: 09/23/24 23:00 Last Infusion: 09/24/24 00:24 Dose: Infused Documented By: Admin: 09/23/24 23:48 Dose: 200 mls/hr Documented By: DYANA Sodium Chloride (Nss) 1,000 mls @ 999 mls/hr IV .Q1H1M ONE Stop: 09/23/24 23:31 Last Infusion: 09/24/24 00:09 Dose: Infused Documented By: Admin: 09/23/24 22:54 Dose: 999 mls/hr Documented By: PORTER Sodium Chloride (Nss) 500 mls @ 999 mls/hr IV .Q31M ONE Stop: 09/23/24 23:01 Last Infusion: 09/23/24 23:48 Dose: Infused Documented By: Admin: 09/23/24 22:55 Dose: 999 mls/hr Documented By: PORTER Acetaminophen (Ofirmev) 1,000 mg in 100 mls @ 400 mls/hr IV NOW STA Stop: 09/23/24 22:46 Last Infusion: 09/23/24 23:25 Dose: Infused Documented By: Admin: 09/23/24 22:53 Dose: 400 mls/hr Documented By: PORTER Ioversol (Optiray 320 125ml) 118 ml IV ONCE ONE Stop: 09/23/24 23:15 Last Admin: 09/23/24 23:14 Dose: 118 ml Documented By: LAVELL Methylprednisolone (Methylprednisolone 125 Mg/2 Ml Vial) 125 mg IV NOW STA Stop: 09/23/24 22:33 Last Admin: 09/23/24 22:53 Dose: 125 mg Documented By: PORTER Medical Decision Making Medical Records Attestation: I reviewed the patient's medical records. Home Medications Current Medication List: was personally reviewed by me Laboratory Data Attestation: I reviewed the patient's lab results. 09/23/24 22:32 09/23/24 22:32 Lab Results 09/23/24 09/23/24 09/23/24 Range/Units 22:32 22:50 23:48 WBC 6.31 (4.8-10.8) K/ul RBC 4.71 (4.20-5.40) M/uL Hgb 15.2 (12.0-16.0) g/dl POC Hgb 14.6 (12.0-16.0) g/dl Hct 45.2 (37.0-47.0) % POC Hct 43 (37-47) % MCV 96.0 (80.0-100.0) fL MCH 32.3 (25.0-34.0) pg MCHC 33.6 (32.0-36.0) g/dL RDW Std Deviation 45.1 (36.4-46.3) fL RDW Coeff of Rema 12.8 (11.5-14.5) % Plt Count 183 (130-400) K/uL MPV 8.8 L (9.4-12.4) fL Immature Gran % (Auto) 0.3 % Neut % (Auto) 74.5 % Lymph % (Auto) 16.5 % Grayson % (Auto) 6.2 % Eos % (Auto) 1.7 % Baso % (Auto) 0.8 % Neut # (Auto) 4.70 (1.40-6.50) K/uL Lymph # (Auto) 1.04 L (1.20-3.40) K/uL Grayson # (Auto) 0.39 (0.11-0.59) K/uL Eos # (Auto) 0.11 (0.00-0.50) K/uL Baso # (Auto) 0.05 (0.00-0.20) K/uL Immature Gran # (Auto) 0.02 (0.01-0.20) K/uL PT 10.3 (9.0-12.0) Seconds INR 0.9 (0.9-1.1) APTT 24 (21-31) Seconds PTT Ratio 0.9 VBG pH 7.33 L (7.36-7.41) VBG pCO2 50 (38-50) mmHg VBG pO2 72 mmHg VBG HCO3 26 mmol/L VBG O2 Saturation 95.1 % VBG Base Excess -0.2 mEq/L POC Sodium 135 (135-144) mmol/L Sodium 136 (136-145) mmol/L POC Potassium 5.5 H (3.3-5.0) mmol/L Potassium 4.5 (3.5-5.1) mmol/L POC Chloride 103 (101-112) mmol/L Chloride 101 (98-107) mmol/L Carbon Dioxide 30 (21-32) mmol/L POC Total CO2 29 (24-31) mmol/L Anion Gap 5 (3-11) POC Anion Gap 10.0 L (16-25) mmol/L POC BUN 19 H (7-18) mg/dl BUN 14 (6-23) mg/dl Creatinine 0.69 (0.6-1.2) mg/dl POC Creatinine 0.8 (0.6-1.3) mg/dl Est Cr Clr Drug Dosing Not Reportable eGFR 98.68 BUN/Creatinine Ratio 20.3 H (10-20) Glucose 120 H (70-99(Fasting)) mg/dl POC Glucose (other) 119 H (70-99) mg/dl Lactate 1.6 (0.4-2.0) mmol/L Calcium 9.0 (8.6-10.3) mg/dl POC Ioniz Calcium Lexis 1.13 (1.12-1.32) mmol/l Total Bilirubin 0.6 (0.2-1.0) mg/dl AST 23 (13-39) U/L ALT 20 (7-52) U/L Alkaline Phosphatase 65 (34-104) U/L Troponin I High Sens 14.3 H (0-14) pg/ml Total Protein 6.9 (6.0-8.3) gm/dl Albumin 4.2 (3.4-5.0) gm/dl Globulin 2.7 (2.5-4.0) gm/dl Albumin/Globulin Ratio 1.6 (0.9-2) Procalcitonin 0.07 (0-0.5) ng/ml Adenovirus (PCR) (NotDetected) B. pertussis DNA (PCR) (NotDetected) B.parapertussis DNA PCR (NotDetected) C. pneumoniae DNA (PCR) (NotDetected) Coronavirus OC43 (PCR) (NotDetected) Coronavirus HKU1 (PCR) (NotDetected) Coronavirus 229E (PCR) (NotDetected) SARS-CoV-2 (PCR) (NotDetected) Coronavirus NL63 (PCR) (NotDetected) Human Metapneumovir PCR (NotDetected) Influenza Type A (PCR) (NotDetected) Influenza Type B (PCR) (NotDetected) M. pneumoniae (PCR) (NotDetected) Parainfluenza 1 (PCR) (NotDetected) Parainfluenza 2 (PCR) (NotDetected) Parainfluenza 3 (PCR) (NotDetected) Parainfluenza 4 (PCR) (NotDetected) RSV (PCR) (NotDetected) Entero/Rhino (PCR) (NotDetected) 09/23/24 09/24/24 Range/Units Unknown 00:30 WBC (4.8-10.8) K/ul RBC (4.20-5.40) M/uL Hgb (12.0-16.0) g/dl POC Hgb (12.0-16.0) g/dl Hct (37.0-47.0) % POC Hct (37-47) % MCV (80.0-100.0) fL MCH (25.0-34.0) pg MCHC (32.0-36.0) g/dL RDW Std Deviation (36.4-46.3) fL RDW Coeff of Rema (11.5-14.5) % Plt Count (130-400) K/uL MPV (9.4-12.4) fL Immature Gran % (Auto) % Neut % (Auto) % Lymph % (Auto) % Grayson % (Auto) % Eos % (Auto) % Baso % (Auto) % Neut # (Auto) (1.40-6.50) K/uL Lymph # (Auto) (1.20-3.40) K/uL Grayson # (Auto) (0.11-0.59) K/uL Eos # (Auto) (0.00-0.50) K/uL Baso # (Auto) (0.00-0.20) K/uL Immature Gran # (Auto) (0.01-0.20) K/uL PT (9.0-12.0) Seconds INR (0.9-1.1) APTT (21-31) Seconds PTT Ratio VBG pH (7.36-7.41) VBG pCO2 (38-50) mmHg VBG pO2 mmHg VBG HCO3 mmol/L VBG O2 Saturation % VBG Base Excess mEq/L POC Sodium (135-144) mmol/L Sodium (136-145) mmol/L POC Potassium (3.3-5.0) mmol/L Potassium (3.5-5.1) mmol/L POC Chloride (101-112) mmol/L Chloride (98-107) mmol/L Carbon Dioxide (21-32) mmol/L POC Total CO2 (24-31) mmol/L Anion Gap (3-11) POC Anion Gap (16-25) mmol/L POC BUN (7-18) mg/dl BUN (6-23) mg/dl Creatinine (0.6-1.2) mg/dl POC Creatinine (0.6-1.3) mg/dl Est Cr Clr Drug Dosing eGFR BUN/Creatinine Ratio (10-20) Glucose (70-99(Fasting)) mg/dl POC Glucose (other) (70-99) mg/dl Lactate (0.4-2.0) mmol/L Calcium (8.6-10.3) mg/dl POC Ioniz Calcium Lexis (1.12-1.32) mmol/l Total Bilirubin (0.2-1.0) mg/dl AST (13-39) U/L ALT (7-52) U/L Alkaline Phosphatase (34-104) U/L Troponin I High Sens 14.6 H (0-14) pg/ml Total Protein (6.0-8.3) gm/dl Albumin (3.4-5.0) gm/dl Globulin (2.5-4.0) gm/dl Albumin/Globulin Ratio (0.9-2) Procalcitonin (0-0.5) ng/ml Adenovirus (PCR) Not Detected (NotDetected) B. pertussis DNA (PCR) Not Detected (NotDetected) B.parapertussis DNA PCR Not Detected (NotDetected) C. pneumoniae DNA (PCR) Not Detected (NotDetected) Coronavirus OC43 (PCR) Not Detected (NotDetected) Coronavirus HKU1 (PCR) Not Detected (NotDetected) Coronavirus 229E (PCR) Not Detected (NotDetected) SARS-CoV-2 (PCR) Not Detected (NotDetected) Coronavirus NL63 (PCR) Not Detected (NotDetected) Human Metapneumovir PCR Not Detected (NotDetected) Influenza Type A (PCR) Not Detected (NotDetected) Influenza Type B (PCR) Not Detected (NotDetected) M. pneumoniae (PCR) Not Detected (NotDetected) Parainfluenza 1 (PCR) Not Detected (NotDetected) Parainfluenza 2 (PCR) Not Detected (NotDetected) Parainfluenza 3 (PCR) DETECTED A (NotDetected) Parainfluenza 4 (PCR) Not Detected (NotDetected) RSV (PCR) Not Detected (NotDetected) Entero/Rhino (PCR) Not Detected (NotDetected) Imaging Data Attestation: I personally reviewed and interpreted this imaging study as follows: MDM Narrative Prior records/ancillary studies reviewed. Triage Nursing notes reviewed. Additional history obtained from the family. The patient's history was concerning for respiratory difficulties. Differential diagnosis: Etiologies such as infections, reactive airway disease, pneumonia, pneumothorax, COPD, CHF, cardiac ischemia, pulmonary embolism, musculoskeletal, gastrointestinal, as well as others were entertained. Physical examination: As above. ER treatment provided: An order was placed for continuous cardiac monitoring. The monitor shows a rate of 60-130 with a sinus rhythm per my interpretation. IV fluids, nebulizer, Solu-Medrol, Tylenol, Zosyn On reassessment the patient felt better. Diagnostic interpretation by me: The electrocardiogram was ordered for SOB. ECG: Normal sinus, poor baseline, no acute ST-T wave changes, rate of 125. Impression sinus tachycardia poor baseline independently interpreted by myself The labs Independently Interpreted by myself revealed elevated troponin and repeat was ordered. Most likely type II MS and repeat was about the same. VBG was reviewed, positive parainfluenza on [employer] Negative lactic. Negative procalcitonin. Blood cultures pending Imaging studies: Imaging was reviewed and read by radiology Consultation: A consultation was placed with the hospitalist. The case was discussed and diagnostics were reviewed. The patient was evaluated in the ER for further treatment. This appears to be consistent with COPD exacerbation with a with parainfluenza. Troponin was mildly positive most likely type II. She was hypoxic on room air. She felt much better on oxygen. She improved with medications as above. Medicine was consulted case discussed. She will be admitted to the medical service. Patient is agreeable.. By the evaluation outlined above emergent etiologies such as CHF, cardiac ischemia, pulmonary embolism, reactive airway disease, pneumonia, pneumothorax, musculoskeletal, serious bacterial infections, as well as others were deemed relatively unlikely. The pt informed about the findings as listed above. All questions were answered and pleased with the treatment. The chart was completed utilizing [employer] Speech voice recognition software. Grammatical errors, random word insertions, pronoun errors, and incomplete sentences are an occassional consequence of this system due to software limitations, ambient noise, and hardware issues. Any formal questions or concerns about the content, text, or information contained within the body of this dictation should be directly addressed to the physician mri assistant for clarification. Impression & Plan Acute exacerbation of chronic obstructive airways disease, Type 2 acute myocardial infarction, Parainfluenza infection Discharge Plan Visit Data Chief Complaint: Shortness of Breath/Dyspnea Stated Complaint: COLD, COPD, SOB ED Provider: Severiano Kumar ED Midlevel Provider: Thea Arellano Discharge Problem: Acute exacerbation of chronic obstructive airways disease, Type 2 acute myocardial infarction, Parainfluenza infection Patient Disposition: Admitted As Inpatient Condition: Fair Forms Stand Alone Forms: [employer] (P) Prescriptions Prescriptions: No Action fluticasone propion-salmeterol 250-50 mcg/dose blister with device 1 puff Inhalation BID lisinopril 10 mg tablet 10 mg PO QAM metoprolol succinate 25 mg tablet extended release 24 hr 25 mg PO QAM albuterol sulfate 1.25 mg/3 mL solution for nebulization 1.25 mg INH Q6H PRN (Reason: shortness of breath or wheezing) Qty: 90 3RF albuterol sulfate 90 mcg/actuation HFA aerosol inhaler 2 puff INHALATION Q6H PRN (Reason: sob) ipratropium-albuterol 0.5 mg-3 mg(2.5 mg base)/3 mL solution for nebulization 3 ml INHALATION Q6 PRN (Reason: Wheezing) Referrals Referrals: Pipo Baird MD [Primary Care Provider] -
[2024-09-23] MEDS: ALBUT/IPRATROP 3MG/0.5MG NEB 3 ML VIAL NEB STA (22:54)
[2024-09-23] MEDS: SODIUM CHLORIDE 0.9% 1,000 ML IV ONE (22:54)
[2024-09-23] MEDS: SODIUM CHLORIDE 0.9% 500 ML IV ONE (22:55)
[2024-09-23 22:56] LABS: Basophils # (auto) 0.05 K/uL (0.00-0.20); Basophils % (auto) 0.8 %; Eosinophils # (auto) 0.11 K/uL (0.00-0.50); Eosinophils % (auto) 1.7 %; Hematocrit (blood only) 45.2 % (37.0-47.0); Hemoglobin 15.2 g/dl (12.0-16.0); Immature Granulocytes # (auto) 0.02 K/uL (0.01-0.20); Immature Granulocytes % (auto) 0.3 %; Lymphocytes # (auto) 1.04 K/uL (1.20-3.40); Lymphocytes % (auto) 16.5 %; Mean Corpuscular Hemoglobin 32.3 pg (25.0-34.0); Mean Corpuscular Hgb Conc 33.6 g/dL (32.0-36.0); Mean Platelet Volume 8.8 fL (9.4-12.4); Monocytes # (auto) 0.39 K/uL (0.11-0.59); Monocytes % (auto) 6.2 %; Neutrophils % (auto) 74.5 %; Platelet Count 183 K/uL (130-400); RDW Coefficient of Variation 12.8 % (11.5-14.5); RDW Standard Deviation 45.1 fL (36.4-46.3); Red Blood Count 4.71 M/uL (4.20-5.40); White Blood Count 6.31 K/ul (4.8-10.8)
[2024-09-23 23:08] LABS: iSTAT Creatinine 0.8 mg/dl (0.6-1.3); iSTAT Hemoglobin 14.6 g/dl (12.0-16.0); iSTAT Ionized Calcium 1.13 mmol/l (1.12-1.32); iSTAT Potassium 5.5 mmol/L (3.3-5.0)
[2024-09-23 23:14] LABS: Alanine Aminotransferase 20 U/L (7-52); Albumin Globulin Ratio 1.6 (0.9-2); Albumin Level 4.2 gm/dl (3.4-5.0); Alkaline Phosphatase 65 U/L (34-104); Anion Gap 5 (3-11); Aspartate Aminotransferase 23 U/L (13-39); BUN Creatinine Ratio 20.3 (10-20); Bilirubin,Total 0.6 mg/dl (0.2-1.0); Blood Urea Nitrogen 14 mg/dl (6-23); Carbon Dioxide 30 mmol/L (21-32); Chloride 101 mmol/L (98-107); Globulin 2.7 gm/dl (2.5-4.0); Glucose 120 mg/dl (70-99(Fasting)); Potassium 4.5 mmol/L (3.5-5.1); Sodium 136 mmol/L (136-145); Total Protein 6.9 gm/dl (6.0-8.3)
[2024-09-23] MEDS: OPTIRAY 320 125ml IV ONE (23:14)
[2024-09-23 23:22] LABS: Troponin I High Sensitivity 14.3 pg/ml (0-14)
[2024-09-23 23:23] LABS: INR 0.9 (0.9-1.1); Partial Thromboplastin Ratio 0.9; Partial Thromboplastin Time 24 Seconds (21-31); Prothrombin Time 10.3 Seconds (9.0-12.0)
[2024-09-23 23:38] LABS: Adenovirus PCR Not Detected (NotDetected); Bordetella parapertussis PCR Not Detected (NotDetected); Bordetella pertussis PCR Not Detected (NotDetected); Chlamydia pneumoniae PCR Not Detected (NotDetected); Coronavirus 229E PCR Not Detected (NotDetected); Coronavirus CoV-2 (COVID19)PCR Not Detected (NotDetected); Coronavirus HKU1 PCR Not Detected (NotDetected); Coronavirus NL63 PCR Not Detected (NotDetected); Coronavirus OC43PCR Not Detected (NotDetected); Human Metapneumovirus PCR Not Detected (NotDetected); Influenza A PCR Not Detected (NotDetected); Influenza B PCR Not Detected (NotDetected); Mycoplasma pneumoniae PCR Not Detected (NotDetected); Parainfluenza Virus 1 PCR Not Detected (NotDetected); Parainfluenza Virus 2 PCR Not Detected (NotDetected); Parainfluenza Virus 3 PCR DETECTED (NotDetected); Parainfluenza Virus 4 PCR Not Detected (NotDetected); Respiratory Syncytial VirusPCR Not Detected (NotDetected); Rhinovirus/Enterovirus PCR Not Detected (NotDetected)
[2024-09-23] MEDS: PIPERACILLIN/TAZOBACTAM 4.5 GM/100 ML BAG IV ONE (23:48)
[2024-09-23 23:53] LABS: Base Excess VBG -0.2 mEq/L; HCO3 VBG 26 mmol/L; Oxygen Saturation VBG 95.1 %; PCO2 VBG 50 mmHg (38-50); PO2 VBG 72 mmHg; pH VBG 7.33 (7.36-7.41)
--- NOTE | 2024-09-24 01:42 | CT Scan Report ---
Exam(s): CTA CHEST IV Amt: 118 cc opti 320 EXAM: CT Angiography Chest With Intravenous Contrast CLINICAL HISTORY: Reason for exam: PE. TECHNIQUE: Axial computed tomographic angiography images of the chest with intravenous contrast. CTDI is 22.46 mGy and DLP is 723.07 mGy-cm. Automated exposure control was utilized for the study. A dose lowering technique was utilized adhering to the principles of ALARA. MIP reconstructed images were created and reviewed. COMPARISON: No relevant prior studies available. FINDINGS: Pulmonary arteries: Unremarkable. No pulmonary embolism. Aorta: No acute findings. No thoracic aortic aneurysm. Lungs: Calcified nodule in the right upper lobe. No acute infiltration or atelectasis. A few very small pulmonary nodules are seen and are of doubtful significance. Pleural space: Unremarkable. No significant effusion. No pneumothorax. Heart: Unremarkable. No cardiomegaly. No significant pericardial effusion. No evidence of RV dysfunction. Mediastinum: Mildly prominent mediastinal lymph nodes. Bones/joints: No acute fracture. No dislocation. Soft tissues: Unremarkable. Lymph nodes: See above. IMPRESSION: No evidence of pulmonary emboli or significant acute cardiopulmonary process. Electronically signed by: Mich Lu MD 09/24/24 01:41 AM
--- NOTE | 2024-09-24 02:00 | XRay Report ---
Exam(s): XR CXR 1 VIEW EXAM: XR Chest, 1 View CLINICAL HISTORY: Reason for exam: Chest pain, nonspecific. TECHNIQUE: Frontal view of the chest. COMPARISON: November 13, 2023. FINDINGS: Lungs: Unremarkable. No acute infiltration, atelectasis or mass. Pleural space: Unremarkable. No pneumothorax or pleural fluid. Heart: Unremarkable. No cardiomegaly. Mediastinum: Unremarkable. Normal mediastinal contour. Bones/joints: No acute findings. IMPRESSION: No acute findings in the chest. Electronically signed by: Mich Lu MD 09/24/24 01:58 AM
--- NOTE | 2024-09-24 04:45 | History & Physical Report ---
Date of Service September 24, 2024 Assessment & Plan (1) Acute exacerbation of chronic obstructive airways disease: Plan: 59-year-old female with past medical history significant for calcified granuloma of lung, COPD, hypertension, tobacco use disorder, obesity, history of DVT and pulmonary embolism and no longer on anticoagulation presents with shortness of breath. Patient states 2 weeks ago she was diagnosed with RSV and she was treated with prednisone. She was feeling better. She went on vacation and after coming back since last she started developing short of breath and cough and congestion. Sometimes she is bringing whitish phlegm. Home inhalers and nebs were not helping.. Has nausea. Appetite is down. In the ER she had a mild temp spike. Normal bowel and bladder movements. No abdominal pain. Oxygen sats were in the 80s on room air. Currently on 2 L oxygen saturating okay. Hemodynamics okay currently. Acute exacerbation of COPD Parainfluenza virus positive Procalcitonin negative CTA chest unremarkable Solu-Medrol 40 mg 3 times daily, nebs [id number] and as needed Continue home inhalers Droplet precautions Close monitor Mild elevation troponin Abnormal EKG Mostly demand ischemia Will follow serial enzymes if any concerns will get echo and cardio consult. Tobacco use Counseling Hypertension Continue home lisinopril and metoprolol succinate Monitor DVT prophylaxis Lovenox Disposition Med/telemetry Full code. History of Present Illness Chief Complaint: Shortness of breath Primary Care Provider: Pipo Baird MD 59-year-old female with past medical history significant for calcified granuloma of lung, COPD, hypertension, tobacco use disorder, obesity, history of DVT and pulmonary embolism and no longer on anticoagulation presents with shortness of breath. Patient states 2 weeks ago she was diagnosed with RSV and she was treated with prednisone. She was feeling better. She went on vacation and after coming back since last she started developing short of breath and cough and congestion. Sometimes she is bringing whitish phlegm. Home inhalers and nebs were not helping.. Has nausea. Appetite is down. In the ER she had a mild temp spike. Normal bowel and bladder movements. No abdominal pain. Oxygen sats were in the 80s on room air. Currently on 2 L oxygen saturating okay. Hemodynamics okay currently. Past medical history. As mentioned above. Past surgical history. induced by D&C. . Colonoscopy. Enlargement of breast with implant. Right ankle ganglion cyst removed. Left knee arthroscopy. Ligation of oviducts. Partial hysterectomy. Social history. Smoking 0.2 packs a day for 41 years. Currently smoking 2 to 3 cigarettes daily. Alcohol social drinking. No drug use. Family history. Father had bladder cancer. Prostate cancer. Maternal grandfather had diabetes. Aunt had diabetes. Mother had thyroid disorder. Allergies Allergy/AdvReac Type Severity Reaction Status Date / Time latex Allergy Unknown Unknown Verified 09/24/24 00:21 codeine AdvReac Mild N/V, HEARS Verified 09/24/24 00:21 VIOCES Home Medications Medication Instructions Recorded Confirmed Type albuterol sulfate 1.25 mg/3 mL 1.25 mg (3 mL) inhalation Q6H PRN 08/29/18 09/24/24 Rx solution for nebulization shortness of breath or wheezing #90 mL fluticasone 250 mcg-salmeterol 50 1 puff inhalation BID 08/29/18 09/24/24 History mcg/dose blistr powdr for inhalation lisinopril 10 mg tablet 10 mg PO QAM 08/29/18 09/24/24 History metoprolol succinate 25 mg 25 mg PO QAM 08/29/18 09/24/24 History tablet,extended release 24 hr albuterol sulfate 90 mcg/actuation 2 puff inhalation Q6H PRN sob 11/13/23 09/24/24 History aerosol inhaler ipratropium 0.5 mg-albuterol 3 mg 3 ml inhalation Q6 PRN Wheezing 09/24/24 09/24/24 History (2.5 mg base)/3 mL nebulization soln Past Med/Surg History Problem List (Updated 09/23/24 @ 23:59 by Thea Arellano PA-C) Parainfluenza infection (Acute) Type 2 acute myocardial infarction (Acute) Acute exacerbation of chronic obstructive airways disease (Acute) Cervical adenopathy (Chronic) Medical History Calcified granuloma of lung "RUL" Pulmonary embolism HTN (hypertension) Tobacco use disorder COPD (chronic obstructive pulmonary disease) History of asthma Surgical History History of breast augmentation S/P ACL reconstruction History of hysterectomy Family History Other Diabetes Hypertension Lung disease Social History Smoking Status: Current every day smoker Tobacco Type: Cigarettes Second Hand Exposure: No; Do You Dip or Chew Tobacco: No; Tobacco Cessation Education Requested by Patient: No Hx Alcohol Use: Yes Alcohol type: wine Hx Substance Use: No Preferred Language: Mohawk Communication Ability: Effective 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 Head- atraumatic Eyes- PERRL. ENT- oropharynx clear Neck- supple, no JVD. Lungs- clear to auscultation occasional expiratory wheezing, no crackles Heart- regular rate and rhythm; no murmur, no gallop. Abdomen- normal bowel sounds, soft, nontender, no distension. Extremities- no pretibial edema, no erythema seen Neuro- alert, oriented PERRL, no facial palsy; no dysarthria; moves extremities Results & Data Results & Data Vital Signs (Past 12 Hours) Vital Signs Temp Pulse Pulse Resp BP BP Pulse Ox 09/24/24 03:00 80 20 93 09/24/24 02:46 102 H 09/24/24 02:00 99 H 20 158/104 H 94 09/24/24 01:30 100 H 22 159/98 H 94 09/24/24 01:16 98 H 20 145/93 H 95 09/24/24 00:42 98 H 17 171/114 H 95 09/24/24 00:08 106 H 20 96 09/24/24 00:03 37.0 C 09/24/24 00:02 113 H 21 159/96 H 96 09/23/24 23:39 117 H 22 178/99 H 95 09/23/24 23:21 116 H 32 H 180/113 H 98 09/23/24 22:42 119 H 34 H 165/108 H 92 09/23/24 22:42 120 H 09/23/24 22:30 80 L 09/23/24 22:17 37.7 C H 125 H 20 186/107 H 88 L O2 Del Method O2 Flow Rate 09/24/24 03:00 Nasal Cannula 2 09/24/24 02:46 09/24/24 02:00 Nasal Cannula 2 09/24/24 01:30 Nasal Cannula 2 09/24/24 01:16 Nasal Cannula 2 09/24/24 00:42 Nasal Cannula 2 09/24/24 00:08 Nasal Cannula 2 09/24/24 00:03 09/24/24 00:02 Nasal Cannula 2 09/23/24 23:39 Nasal Cannula 2 09/23/24 23:21 Nasal Cannula 2 09/23/24 22:42 Nasal Cannula 2 09/23/24 22:42 09/23/24 22:30 Nasal Cannula 0 09/23/24 22:17 Room Air Diagnostic Findings Laboratory Results WBC 6.31 K/ul (4.8-10.8) 09/23/24 22:32 RBC 4.71 M/uL (4.20-5.40) 09/23/24 22:32 Hgb 15.2 g/dl (12.0-16.0) 09/23/24 22:32 POC Hgb 14.6 g/dl (12.0-16.0) 09/23/24 22:50 Hct 45.2 % (37.0-47.0) 09/23/24 22:32 POC Hct 43 % (37-47) 09/23/24 22:50 MCV 96.0 fL (80.0-100.0) 09/23/24 22:32 MCH 32.3 pg (25.0-34.0) 09/23/24 22:32 MCHC 33.6 g/dL (32.0-36.0) 09/23/24 22:32 RDW Std Deviation 45.1 fL (36.4-46.3) 09/23/24 22:32 RDW Coeff of Rema 12.8 % (11.5-14.5) 09/23/24 22:32 Plt Count 183 K/uL (130-400) 09/23/24 22:32 MPV 8.8 fL (9.4-12.4) L 09/23/24 22: Immature Gran % (Auto) 0.3 % 09/23/24:32 Neut % (Auto) 74.5 % 09/23/24: Lymph % (Auto) 16.5 % 09/23/24:32 [place] % (Auto) 6.2 % 09/23/24: Eos % (Auto) 1.7 % 09/23/24: Baso % (Auto) 0.8 % 09/23/24: Neut # (Auto) 4.70 K/uL (1.40-6.50) 09/23/24: Lymph # (Auto) 1.04 K/uL (1.20-3.40) L 09/23/24: [place] # (Auto) 0.39 K/uL (0.11-0.59) 09/23/24: Eos # (Auto) 0.11 K/uL (0.00-0.50) 09/23/24: Baso # (Auto) 0.05 K/uL (0.00-0.20) 09/23/24: Immature Gran # (Auto) 0.02 K/uL (0.01-0.20) 09/23/24:32 PT 10.3 Seconds (9.0-12.0) 09/23/24:32 INR 0.9 (0.9-1.1) 09/23/24: APTT 24 Seconds (21-31) 09/23/24: PTT Ratio 0.9 09/23/24:32 VBG pH 7.33 (7.36-7.41) L 09/23/24 23:48 VBG pCO2 50 mmHg (38-50) 09/23/24 23:48 VBG pO2 72 mmHg 09/23/24 23:48 VBG HCO3 26 mmol/L 09/23/24 23:48 VBG O2 Saturation 95.1 % 09/23/24 23:48 VBG Base Excess -0.2 mEq/L 09/23/24 23:48 POC Sodium 135 mmol/L (135-144) 09/23/24 22:50 Sodium 136 mmol/L (136-145) 09/23/24 22:32 POC Potassium 5.5 mmol/L (3.3-5.0) H 09/23/24 22:50 Potassium 4.5 mmol/L (3.5-5.1) 09/23/24 22:32 POC Chloride 103 mmol/L (101-112) 09/23/24 22:50 Chloride 101 mmol/L (98-107) 09/23/24 22:32 Carbon Dioxide 30 mmol/L (21-32) 09/23/24 22:32 POC Total CO2 29 mmol/L (24-31) 09/23/24 22:50 Anion Gap 5 (3-11) 09/23/24 22:32 POC Anion Gap 10.0 mmol/L (16-25) L 09/23/24 22:50 POC BUN 19 mg/dl (7-18) H 09/23/24 22:50 BUN 14 mg/dl (6-23) 09/23/24 22:32 Creatinine 0.69 mg/dl (0.6-1.2) 09/23/24 22:32 POC Creatinine 0.8 mg/dl (0.6-1.3) 09/23/24 22:50 Est Cr Clr Drug Dosing Not Reportable 09/23/24 22:32 eGFR 98.68 09/23/24 22:32 BUN/Creatinine Ratio 20.3 (10-20) H 09/23/24 22:32 Glucose 120 mg/dl (70-99(Fasting)) H 09/23/24 22:32 POC Glucose (other) 119 mg/dl (70-99) H 09/23/24 22:50 Lactate 1.6 mmol/L (0.4-2.0) 09/23/24 22:32 Calcium 9.0 mg/dl (8.6-10.3) 09/23/24 22:32 POC Ioniz Calcium Lexis 1.13 mmol/l (1.12-1.32) 09/23/24 22:50 Total Bilirubin 0.6 mg/dl (0.2-1.0) 09/23/24 22:32 AST 23 U/L (13-39) 09/23/24 22:32 ALT 20 U/L (7-52) 09/23/24 22:32 Alkaline Phosphatase 65 U/L (34-104) 09/23/24 22:32 Troponin I High Sens 14.6 pg/ml (0-14) H 09/24/24 00:30 Total Protein 6.9 gm/dl (6.0-8.3) 09/23/24 22:32 Albumin 4.2 gm/dl (3.4-5.0) 09/23/24 22:32 Globulin 2.7 gm/dl (2.5-4.0) 09/23/24 22:32 Albumin/Globulin Ratio 1.6 (0.9-2) 09/23/24 22:32 Procalcitonin 0.07 ng/ml (0-0.5) 09/23/24 22:32 Adenovirus (PCR) Not Detected (NotDetected) 09/23/24 Unknown B. pertussis DNA (PCR) Not Detected (NotDetected) 09/23/24 Unknown B.parapertussis DNA PCR Not Detected (NotDetected) 09/23/24 Unknown C. pneumoniae DNA (PCR) Not Detected (NotDetected) 09/23/24 Unknown Coronavirus OC43 (PCR) Not Detected (NotDetected) 09/23/24 Unknown Coronavirus HKU1 (PCR) Not Detected (NotDetected) 09/23/24 Unknown Coronavirus 229E (PCR) Not Detected (NotDetected) 09/23/24 Unknown SARS-CoV-2 (PCR) Not Detected (NotDetected) 09/23/24 Unknown Coronavirus NL63 (PCR) Not Detected (NotDetected) 09/23/24 Unknown Human Metapneumovir PCR Not Detected (NotDetected) 09/23/24 Unknown Influenza Type A (PCR) Not Detected (NotDetected) 09/23/24 Unknown Influenza Type B (PCR) Not Detected (NotDetected) 09/23/24 Unknown M. pneumoniae (PCR) Not Detected (NotDetected) 09/23/24 Unknown Parainfluenza 1 (PCR) Not Detected (NotDetected) 09/23/24 Unknown Parainfluenza 2 (PCR) Not Detected (NotDetected) 09/23/24 Unknown Parainfluenza 3 (PCR) DETECTED (NotDetected) A 09/23/24 Unknown Parainfluenza 4 (PCR) Not Detected (NotDetected) 09/23/24 Unknown RSV (PCR) Not Detected (NotDetected) 09/23/24 Unknown Entero/Rhino (PCR) Not Detected (NotDetected) 09/23/24 Unknown Impressions Chest X-Ray 09/23/24 22:26 Exam(s): XR CXR 1 VIEW EXAM: XR Chest, 1 View CLINICAL HISTORY: Reason for exam: Chest pain, nonspecific. TECHNIQUE: Frontal view of the chest. COMPARISON: November 13, 2023. FINDINGS: Lungs: Unremarkable. No acute infiltration, atelectasis or mass. Pleural space: Unremarkable. No pneumothorax or pleural fluid. Heart: Unremarkable. No cardiomegaly. Mediastinum: Unremarkable. Normal mediastinal contour. Bones/joints: No acute findings. IMPRESSION: No acute findings in the chest. Electronically signed by: Mich Lu MD 09/24/24 01:58 AM Chest CTA 09/23/24 22:31 Exam(s): CTA CHEST IV Amt: 118 cc opti 320 EXAM: CT Angiography Chest With Intravenous Contrast CLINICAL HISTORY: Reason for exam: PE. TECHNIQUE: Axial computed tomographic angiography images of the chest with intravenous contrast. CTDI is 22.46 mGy and DLP is 723.07 mGy-cm. Automated exposure control was utilized for the study. A dose lowering technique was utilized adhering to the principles of ALARA. MIP reconstructed images were created and reviewed. COMPARISON: No relevant prior studies available. FINDINGS: Pulmonary arteries: Unremarkable. No pulmonary embolism. Aorta: No acute findings. No thoracic aortic aneurysm. Lungs: Calcified nodule in the right upper lobe. No acute infiltration or atelectasis. A few very small pulmonary nodules are seen and are of doubtful significance. Pleural space: Unremarkable. No significant effusion. No pneumothorax. Heart: Unremarkable. No cardiomegaly. No significant pericardial effusion. No evidence of RV dysfunction. Mediastinum: Mildly prominent mediastinal lymph nodes. Bones/joints: No acute fracture. No dislocation. Soft tissues: Unremarkable. Lymph nodes: See above. IMPRESSION: No evidence of pulmonary emboli or significant acute cardiopulmonary process. Electronically signed by: Mich Lu MD 09/24/24 01:41 AM ECG Additional Comments: ECG. Sinus tachycardia rate of 125 with PACs. Biatrial enlargement. QTc 418. Code Status & VTE Plan VTE Prophylaxis Plan VTE Prophylaxis will be ordered: Yes
[2024-09-24] MEDS ORDERED: NITROGLYCERIN SL 0.4 MG/TAB TAB SL PRN (04:57)
[2024-09-24] MEDS ORDERED: ALBUT/IPRATROP 3MG/0.5MG NEB 3 ML VIAL NEB PRN (04:57)
[2024-09-24] MEDS ORDERED: ONDANSETRON INJ 2 MG/ML 2 ML VIAL IV PRN (04:57)
[2024-09-24] MEDS: methylPREDNISolone 40 MG in SYRINGE 0 ML IV SCH (06:19)
[2024-09-24] MEDS ORDERED: LEVALBUTEROL 1.25 MG/3 ML NEB NEB PRN (06:37)
[2024-09-24] MEDS: LABETALOL HCL IV 5 MG/ML 20ML IV STA (06:47)
[2024-09-24] MEDS ORDERED: ALBUT/IPRATROP 3MG/0.5MG NEB 3 ML VIAL NEB SCH (07:00)
[2024-09-24] MEDS: LEVALBUTEROL 1.25 MG/3 ML NEB NEB SCH (07:06)
[2024-09-24] MEDS: ENOXAPARIN INJ 40 MG/0.4 ML SYR SQ SCH (08:07)
[2024-09-24] MEDS: lisinopril 10 MG TAB PO SCH (08:07)
[2024-09-24] MEDS: METOPROLOL SUCC 25MG EXT REL TAB PO SCH (08:07)
[2024-09-24] MEDS: FLUTICASONE/VILANTEROL 200/25MCG 14 PUFFS/INHALER INH SCH (08:09)
[2024-09-24] MEDS: hydrALAZINE HCL 20 MG/ML VIAL IV STA (08:37)
[2024-09-24] MEDS: lisinopril 10 MG TAB PO ONE (08:55)
[2024-09-24] MEDS ORDERED: methylPREDNISolone 125 MG/2 ML VIAL IV SCH (09:00)
[2024-09-24] MEDS ORDERED: HYDROcodone/HOMATROPINE SYRUP 5MG/1.5MG 5ML UDP PO PRN (11:37)
--- NOTE | 2024-09-24 11:56 | Communication Note ---
Date of Service: September 24, 2024 In short, Ms. Vogt is admitted for acute hypoxic resp failure iso COPD exacerbation due to parainfluenza Patient reports minimal subjective improvement, still with difficult trying to bring up sputum Exam with notable aubible rhonchi, some expiratory wheezing #Acute hypoxic resp failure #Parainfluenza #COPD exacerbation -Start mucinx bid Plan for hypertonic nebs to aid in clearance Flutter valve Azithromycin x 3 days Continue steroid and around the clock nebs Wean o2 as able rest of plan per HP
[2024-09-24] MEDS: AZITHROMYCIN 250 MG TAB PO SCH (12:12)
[2024-09-24] MEDS: HYDROcodone/HOMATROPINE SYRUP 5MG/1.5MG 5ML UDP PO STA (12:12)
[2024-09-24] MEDS: ACETAMINOPHEN 1,000 MG/100 ML VIAL IV STA (12:12)
--- NOTE | 2024-09-24 12:18 | Electrocardiogram Report ---
Test Reason : Blood Pressure : */* mmHG Vent. Rate : 125 BPM Atrial Rate : 125 BPM P-R Int : 138 ms QRS Dur : 56 ms QT Int : 290 ms P-R-T Axes : 74 38 67 degrees QTcB Int : 418 ms Sinus tachycardia with Premature atrial complexes Biatrial enlargement Septal infarct , age undetermined Abnormal ECG When compared with ECG of 13-Nov-2023 15:20, Premature atrial complexes are now Present Vent. rate has increased by 47 bpm Confirmed by Acosta Bhandari ([id number]) on 09/24/2024 12:17:48 PM Referred By: REFERRED SELF Confirmed By: Acosta Bhandari
[2024-09-24] MEDS: SODIUM CHLOR 7% 4 ML NEB NEB SCH (20:20)
[2024-09-24] MEDS: guaiFENesin 600 MG TABCR PO SCH (20:56)
[2024-09-25] MEDS: ACETAMINOPHEN 325 MG TAB PO PRN (01:32)
[2024-09-25] MEDS: ALBUTEROL HFA 8 GM INHALER INH PRN (01:40)
[2024-09-25 06:13] LABS: Basophils # (auto) 0.01 K/uL (0.00-0.20); Basophils % (auto) 0.1 %; Hematocrit (blood only) 43.1 % (37.0-47.0); Hemoglobin 14.3 g/dl (12.0-16.0); Immature Granulocytes # (auto) 0.04 K/uL (0.01-0.20); Immature Granulocytes % (auto) 0.4 %; Lymphocytes # (auto) 0.59 K/uL (1.20-3.40); Lymphocytes % (auto) 6.6 %; Mean Corpuscular Hemoglobin 32.8 pg (25.0-34.0); Mean Corpuscular Hgb Conc 33.2 g/dL (32.0-36.0); Mean Corpuscular Volume 98.9 fL (80.0-100.0); Mean Platelet Volume 9.1 fL (9.4-12.4); Monocytes # (auto) 0.35 K/uL (0.11-0.59); Monocytes % (auto) 3.9 %; Neutrophils # (auto) 7.91 K/uL (1.40-6.50); Platelet Count 185 K/uL (130-400); RDW Coefficient of Variation 12.4 % (11.5-14.5); RDW Standard Deviation 44.9 fL (36.4-46.3); Red Blood Count 4.36 M/uL (4.20-5.40)
[2024-09-25 06:25] LABS: BUN Creatinine Ratio 21.2 (10-20); Calcium 8.6 mg/dl (8.6-10.3); Creatinine Clr Calc Pharmacy 83.1 ml/min; Magnesium 2.2 mg/dl (1.7-2.4); Potassium 4.7 mmol/L (3.5-5.1)
--- NOTE | 2024-09-25 13:59 | Hospitalist Progress Note ---
Date of Service September 25, 2024 Assessment & Plan (1) Acute exacerbation of chronic obstructive airways disease: Plan: 59-year-old female with past medical history significant for calcified granuloma of lung, COPD, hypertension, tobacco use disorder, obesity, history of DVT and pulmonary embolism and no longer on anticoagulation presents with shortness of breath. Patient states 2 weeks ago she was diagnosed with RSV and she was treated with prednisone. She was feeling better. She went on vacation and after coming back since last she started developing short of breath and cough and congestion. Sometimes she is bringing whitish phlegm. Home inhalers and nebs were not helping.. Has nausea. Appetite is down. In the ER she had a mild temp spike. Normal bowel and bladder movements. No abdominal pain. Oxygen sats were in the 80s on room air. Currently on 2 L oxygen saturating okay. Hemodynamics okay currently. #Acute hypoxic resp failure #Acute exacerbation of COPD #Parainfluenza virus positive Procalcitonin negative CTA chest unremarkable Reduce solumedrol q12 Reduce nebs to prn given tachycardia azithromycin x 3 days Continue home inhalers Droplet precautions Close monitor #Mild elevation troponin likely demand iso hypoxia #Abnormal EKG Mostly demand ischemia Trop downtrending, low suspicion for acs ECHO with LVH, and GDI CTM #Tobacco use Counseling, encouraged cessation 2/2 ongoing issues with COPD #Hypertension Continue home lisinopril and metoprolol succinate DVT prophylaxis Lovenox Disposition Med/telemetry Full code. Admission and Anticipated Discharge Date Admission Date: September 24, 2024 Subjective NAEO Reports some subjective improvement--reduced cough intensity and frequency, but now with headache 2/2 cough denies any chest pain or other acute concerns at this time, just feeling like she needs to rest Physical Exam Constitutional: WD/WN, vitals as above Respiratory: scatter wheezing however, notable improvement from day prior Cardiovascular: tachycardic Results & Data Results & Data Vital Signs (Past 12 Hours) Vital Signs Temp Pulse Pulse Resp BP Pulse Ox O2 Del Method 09/25/24 11:17 111 H 15 98 Nasal Cannula 09/25/24 10:57 36.5 C 81 21 135/82 96 Nasal Cannula 09/25/24 10:13 91 H 09/25/24 09:43 09/25/24 07:31 Nasal Cannula 09/25/24 07:24 92 H 16 98 Nasal Cannula 09/25/24 07:19 36.5 C 83 20 123/82 97 Nasal Cannula 09/25/24 03:58 36.8 C 98 H 18 136/85 92 Room Air O2 Del Method O2 Flow Rate O2 Flow Rate 09/25/24 11:17 5 09/25/24 10:57 5 09/25/24 10:13 09/25/24 09:43 Nasal Cannula 6 09/25/24 07:31 6 09/25/24 07:24 6 09/25/24 07:19 6 09/25/24 03:58 Laboratory Results Short CBC 09/25/24 Range/Units 05:26 WBC 8.90 (4.8-10.8) K/ul Hgb 14.3 (12.0-16.0) g/dl Hct 43.1 (37.0-47.0) % Plt Count 185 (130-400) K/uL BMP 09/25/24 05:26 Sodium 137 Potassium 4.7 Chloride 101 Carbon Dioxide 34 H BUN 14 Creatinine 0.66 Glucose 170 H Calcium 8.6 Medications Administered Home Medications Medication Instructions Recorded Confirmed Last Taken albuterol sulfate 1.25 mg/3 mL 1.25 mg (3 mL) inhalation Q6H PRN 08/29/18 09/24/24 01/26/22 solution for nebulization shortness of breath or wheezing #90 mL fluticasone 250 mcg-salmeterol 50 1 puff inhalation BID 08/29/18 09/24/24 11/13/23 mcg/dose blistr powdr for inhalation lisinopril 10 mg tablet 10 mg PO QAM 08/29/18 09/24/24 11/13/23 metoprolol succinate 25 mg 25 mg PO QAM 08/29/18 09/24/24 11/13/23 tablet,extended release 24 hr albuterol sulfate 90 mcg/actuation 2 puff inhalation Q6H PRN sob 11/13/23 09/24/24 Unknown aerosol inhaler ipratropium 0.5 mg-albuterol 3 mg 3 ml inhalation Q6 PRN Wheezing 09/24/24 09/24/24 Unknown (2.5 mg base)/3 mL nebulization soln Active Medications Generic Name Dose Route Start Last Admin Trade Name Freq PRN Reason Stop Dose Admin Acetaminophen 650 mg 09/24/24 04:57 09/25/24 01:32 Acetaminophen 325 Mg Tab PO 10/24/24 04:56 650 mg Q4H PRN Administration Pain or Fever Albuterol 2 puffs 09/24/24 04:57 09/25/24 01:40 Albuterol Hfa 8 Gm Inhaler INH 10/24/24 04:56 2 puffs Q6H PRN Administration sob Azithromycin 500 mg 09/24/24 11:45 09/25/24 08:15 Azithromycin 250 Mg Tab PO 09/26/24 09:01 500 mg QAM YFN Administration Enoxaparin Sodium 40 mg 09/24/24 09:00 09/25/24 08:15 Enoxaparin Inj 40 Mg/0.4 Ml Syr SQ 10/24/24 08:59 40 mg Q24H YFN Administration Fluticasone/Vilanterol 1 puffs 09/24/24 09:00 09/25/24 08:15 Fluticasone/Vilanterol 200/25mcg 14 Puffs/Inhaler INH 10/24/24 08:59 1 puffs DAILY YFN Administration Guaifenesin 600 mg 09/24/24 21:00 09/25/24 08:15 Guaifenesin 600 Mg Tabcr PO 10/24/24 20:59 600 mg Q12 YFN Administration Lisinopril 10 mg 09/24/24 09:00 09/25/24 08:15 Lisinopril 10 Mg Tab PO 10/24/24 08:59 10 mg QAM YFN Administration Metoprolol Succinate 25 mg 09/24/24 09:00 09/25/24 08:15 Metoprolol Succ 25mg Ext Rel Tab PO 10/24/24 08:59 25 mg QAM YFN Administration Sodium Chloride 4 ml 09/24/24 19:00 09/25/24 07:23 Sodium Chlor 7% 4 Ml Neb NEB 10/24/24 18:59 4 ml BIDR YFN Administration
[2024-09-25] MEDS: UMECLIDINIUM BROMIDE 62.5MCG/BLISTER 7 PUFFS/INHALER INH SCH (14:47)
[2024-09-25] MEDS: BUDESONIDE 0.25 MG/2 ML VIAL (PULMICORT) NEB SCH (20:05)
[2024-09-25] MEDS: FORMOTEROL 20 MCG/2 ML VIAL NEB SCH (20:06)
[2024-09-25] MEDS: methylPREDNISolone 40 MG in SYRINGE 0 ML IV SCH (20:57)
[2024-09-25] MEDS ORDERED: methylPREDNISolone 125 MG/2 ML VIAL IV STA (21:46)
[2024-09-25] MEDS: methylPREDNISolone 20 MG in SYRINGE 0 ML IV STA (22:13)
[2024-09-26] MEDS: methylPREDNISolone 125 MG/2 ML VIAL IV STA (02:31)
--- NOTE | 2024-09-26 14:48 | Hospitalist Progress Note ---
Date of Service September 26, 2024 Assessment & Plan (1) Acute exacerbation of chronic obstructive airways disease: Plan: Ms. Vogt is a 59-year-old female with past medical history significant for calcified granuloma of lung, COPD, hypertension, tobacco use disorder, obesity, history of DVT and pulmonary embolism and no longer on anticoagulation presents with shortness of breath. Patient states 2 weeks ago she was diagnosed with RSV and she was treated with prednisone. Patient now with parainfluenza prompting copd exacerbation--initially on 6 L o2 now down to 3L . #Acute hypoxic resp failure #Acute exacerbation of COPD #Parainfluenza virus positive Procalcitonin negative CTA chest unremarkable transition solumedrol to po Reduce nebs to prn given tachycardia perforomist and pulmicort with noted improvement azithromycin x 3 days completed Continue home inhalers, add LAMA -Will send for Trelegy to assess if covered Continue mucinex Droplet precautions Close monitor 2 step prior to D/C multiple resp infections and known COPD with tobacco use, anticipate need for o2 now v future #Mild elevation troponin likely demand iso hypoxia #Abnormal EKG Mostly demand ischemia Trop downtrending, low suspicion for acs ECHO with LVH, and GDI CTM #Tobacco use Counseling, encouraged cessation 2/2 ongoing issues with COPD #Hypertension Continue home lisinopril and metoprolol succinate DVT prophylaxis Lovenox Disposition Med/telemetry Full code. Admission and Anticipated Discharge Date Admission Date: September 24, 2024 Subjective NAEO Reports continued improvement, some HERNANDEZ but much improved--able to sleep and breath better Cough with less sputum than days prior and less frequent Physical Exam Constitutional: WD/WN, vitals as above Respiratory: few scattered expiratory wheezes Cardiovascular: RRR, no murmur, no edema Gastrointestinal (Abdomen): normal bowel sounds, soft, nontender, no hepatosplenomegaly Results & Data Results & Data Vital Signs (Past 12 Hours) Vital Signs Temp Pulse Pulse Resp BP Pulse Ox Pulse Ox 09/26/24 13:54 59 L 09/26/24 11:02 36.4 C L 88 20 156/92 H 90 09/26/24 10:49 09/26/24 09:00 97 09/26/24 07:48 36.4 C L 72 20 142/98 H 91 09/26/24 07:17 82 09/26/24 07:04 58 L 18 98 09/26/24 03:08 36.8 C 82 16 131/84 98 O2 Del Method O2 Del Method O2 Flow Rate O2 Flow Rate 09/26/24 13:54 09/26/24 11:02 Nasal Cannula 3 09/26/24 10:49 Nasal Cannula 5 09/26/24 09:00 Nasal Cannula 5 09/26/24 07:48 Nasal Cannula 3 09/26/24 07:17 09/26/24 07:04 Room Air 3 09/26/24 03:08 Nasal Cannula 5 Medications Administered Home Medications Medication Instructions Recorded Confirmed Last Taken albuterol sulfate 1.25 mg/3 mL 1.25 mg (3 mL) inhalation Q6H PRN 08/29/18 09/24/24 01/26/22 solution for nebulization shortness of breath or wheezing #90 mL fluticasone 250 mcg-salmeterol 50 1 puff inhalation BID 08/29/18 09/24/24 11/13/23 mcg/dose blistr powdr for inhalation lisinopril 10 mg tablet 10 mg PO QAM 08/29/18 09/24/24 11/13/23 metoprolol succinate 25 mg 25 mg PO QAM 08/29/18 09/24/24 11/13/23 tablet,extended release 24 hr albuterol sulfate 90 mcg/actuation 2 puff inhalation Q6H PRN sob 11/13/23 09/24/24 Unknown aerosol inhaler ipratropium 0.5 mg-albuterol 3 mg 3 ml inhalation Q6 PRN Wheezing 09/24/24 09/24/24 Unknown (2.5 mg base)/3 mL nebulization soln Active Medications Generic Name Dose Route Start Last Admin Trade Name Freq PRN Reason Stop Dose Admin Acetaminophen 650 mg 09/24/24 04:57 09/25/24 01:32 Acetaminophen 325 Mg Tab PO 10/24/24 04:56 650 mg Q4H PRN Administration Pain or Fever Albuterol 2 puffs 09/24/24 04:57 09/25/24 20:40 Albuterol Hfa 8 Gm Inhaler INH 10/24/24 04:56 2 puffs Q6H PRN Administration sob Budesonide 0.25 mg 09/25/24 19:00 09/26/24 07:04 Budesonide 0.25 Mg/2 Ml Vial (Pulmicort) [facility] 10/25/24 18:59 0.25 mg BIDR YFN Administration Enoxaparin Sodium 40 mg 09/24/24 09:00 09/26/24 07:54 Enoxaparin Inj 40 Mg/0.4 Ml Syr SQ 10/24/24 08:59 40 mg Q24H YFN Administration Fluticasone/Vilanterol 1 puffs 09/24/24 09:00 09/26/24 07:53 Fluticasone/Vilanterol 200/25mcg 14 Puffs/Inhaler INH 10/24/24 08:59 1 puffs DAILY YFN Administration Formoterol Fumarate 20 mcg 09/25/24 19:00 09/26/24 07:04 Formoterol 20 Mcg/2 Ml Vial [facility] 10/25/24 18:59 20 mcg BIDR YFN Administration Guaifenesin 600 mg 09/24/24 21:00 09/26/24 07:55 Guaifenesin 600 Mg Tabcr PO 10/24/24 20:59 600 mg Q12 YFN Administration Methylprednisolone 40 mg/ 0.64 mls @ 1.5 mls/min 09/25/24 21:00 09/26/24 07:57 Syringe IV 10/25/24 20:59 Not Given Q12H YFN Lisinopril 10 mg 09/24/24 09:00 09/26/24 07:55 Lisinopril 10 Mg Tab PO 10/24/24 08:59 10 mg QAM YFN Administration Metoprolol Succinate 25 mg 09/24/24 09:00 09/26/24 07:55 Metoprolol Succ 25mg Ext Rel Tab PO 10/24/24 08:59 25 mg QAM YFN Administration Sodium Chloride 4 ml 09/24/24 19:00 09/26/24 07:04 Sodium Chlor 7% 4 Ml [facility] 10/24/24 18:59 4 ml BIDR YFN Administration Umeclidinium Sachse 1 puffs 09/25/24 14:00 09/26/24 07:54 Umeclidinium Sachse 62.5mcg/Blister 7 Puffs/Inhaler INH 10/25/24 13:59 1 puffs QAM YFN Administration
[2024-09-27] MEDS: predniSONE 20 MG TAB PO SCH (09:22)
[2024-09-27] MEDS ORDERED: OXYMETAZOLINE 0.05% 30 ML BTL PRN (10:01)
[2024-09-27 10:36] VITALS: RESP 17
--- NOTE | 2024-09-27 11:35 | Hospitalist Progress Note ---
Date of Service September 27, 2024 Assessment & Plan (1) Acute exacerbation of chronic obstructive airways disease: Plan: Ms. Vogt is a 59-year-old female with past medical history significant for calcified granuloma of lung, COPD, hypertension, tobacco use disorder, obesity, history of DVT and pulmonary embolism and no longer on anticoagulation presents with shortness of breath. Patient states 2 weeks ago she was diagnosed with RSV and she was treated with prednisone. Patient now with parainfluenza prompting copd exacerbation--initially on 6 L o2 now down to 3L . Acute hypoxic respiratory failure Acute exacerbation of COPD Secondary to Parainfluenza virus Infection Ongoing tobacco use disorder --Chest CTA:No evidence of pulmonary emboli or significant acute cardiopulmonary process. 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 --Completed 3-day course of azithromycin 2 step: Needs 2 L at rest and 3 L with activity Pulmonary hygiene Continue droplet precaution Mild elevation troponin likely demand due to hypoxia Abnormal EKG Mostly demand ischemia Trop downtrending, low suspicion for acs Echo showed no wall motion abnormality Patient denies any chest pain Transient epistaxis Resolved Tobacco use Counseling, encouraged cessation Hypertension Continue home lisinopril and metoprolol succinate DVT prophylaxis Lovenox SQ CODE STATUS Full Code Disposition Home Admission and Anticipated Discharge Date Admission Date: September 24, 2024 Subjective Patient is seen and examined at bedside Had transient nosebleed this morning States feeling well otherwise Still has minimal cough Denies any chest pain, dyspnea, nausea, vomiting, abdominal pain Had 2 step earlier today Review of Systems Review of Systems: All systems reviewed & are unremarkable except as noted in Subjective Physical Exam 2 Physical Exam: Physical Exam: Vitals signs as noted above General Appearance:Moderately built and nourished, no apparent distress Head: normocephalic, Atraumatic Eyes: normal inspection, EOMI Neck: supple, Trachea midline Respiratory/Chest: Decreased breath sounds, CTA, No accessory muscle use Cardiovascular: S1, S2, No murmur Abdomen/GI:Soft, Non tender, Bowel sounds present Extremities/Musculoskeletal:normal inspection, no edema Neurologic/Psych:AAOX3, grossly no focal neurological deficits Skin: normal color, warm Results & Data Results & Data Vital Signs (Past 12 Hours) Vital Signs Temp Pulse Pulse Pulse Pulse Pulse Pulse 09/27/24 10:40 09/27/24 10:28 102 H 103 H 82 88 09/27/24 09:00 09/27/24 08:25 36.5 C 76 09/27/24 07:34 87 09/27/24 07:28 79 09/27/24 02:45 36.7 C 74 09/27/24 00:23 64 Resp Resp Resp Resp Resp BP Pulse Ox 09/27/24 10:40 09/27/24 10:28 20 20 18 17 09/27/24 09:00 09/27/24 08:25 16 155/102 H 94 09/27/24 07:34 09/27/24 07:28 16 93 09/27/24 02:45 18 150/97 H 95 09/27/24 00:23 Pulse Ox Pulse Ox Pulse Ox Pulse Ox Pulse Ox O2 Del Method O2 Del Method 09/27/24 10:40 Nasal Cannula 09/27/24 10:28 87 L 91 90 81 L 09/27/24 09:00 97 Room Air 09/27/24 08:25 Nasal Cannula 09/27/24 07:34 09/27/24 07:28 Nasal Cannula 09/27/24 02:45 Nasal Cannula 09/27/24 00:23 O2 Flow Rate O2 Flow Rate O2 Flow Rate O2 Flow Rate 09/27/24 10:40 3 09/27/24 10:28 2 3 2 09/27/24 09:00 09/27/24 08:25 3 09/27/24 07:34 09/27/24 07:28 3 09/27/24 02:45 3 09/27/24 00:23
[2024-09-27 11:44] VITALS: BP 152/98; TEMP 97.9; O2SAT 94
[2024-09-27 13:40] VITALS: PULSE 74
--- NOTE | 2024-09-27 13:50 | Discharge Summary ---
Date of Service September 27, 2024 Admission HPI Per Admitting Provider 59-year-old female with past medical history significant for calcified granuloma of lung, COPD, hypertension, tobacco use disorder, obesity, history of DVT and pulmonary embolism and no longer on anticoagulation presents with shortness of breath. Patient states 2 weeks ago she was diagnosed with RSV and she was treated with prednisone. She was feeling better. She went on vacation and after coming back since last she started developing short of breath and cough and congestion. Sometimes she is bringing whitish phlegm. Home inhalers and nebs were not helping.. Has nausea. Appetite is down. In the ER she had a mild temp spike. Normal bowel and bladder movements. No abdominal pain. Oxygen sats were in the 80s on room air. Currently on 2 L oxygen saturating okay. Hemodynamics okay currently. Past medical history. As mentioned above. Past surgical history. induced by D&C. . Colonoscopy. Enlargement of breast with implant. Right ankle ganglion cyst removed. Left knee arthroscopy. Ligation of oviducts. Partial hysterectomy. Social history. Smoking 0.2 packs a day for 41 years. Currently smoking 2 to 3 cigarettes daily. Alcohol social drinking. No drug use. Family history. Father had bladder cancer. Prostate cancer. Maternal grandfather had diabetes. Aunt had diabetes. Mother had thyroid disorder. Admission Exam Per Admitting Provider General- Not in distress. Head- atraumatic Eyes- PERRL. ENT- oropharynx clear Neck- supple, no JVD. Lungs- clear to auscultation occasional expiratory wheezing, no crackles Heart- regular rate and rhythm; no murmur, no gallop. Abdomen- normal bowel sounds, soft, nontender, no distension. Extremities- no pretibial edema, no erythema seen Neuro- alert, oriented PERRL, no facial palsy; no dysarthria; moves extremities Principal Diagnosis Acute exacerbation of COPD Acute respiratory failure with hypoxia Parainfluenza infection Tobacco use disorder Discharge Data Allergies Allergy/AdvReac Type Severity Reaction Status Date / Time latex Allergy Unknown Unknown Verified 09/24/24 00:21 codeine AdvReac Mild N/V, HEARS Verified 09/24/24 00:21 VIOCES Consultations 09/23/24 23:58 ED Decision to Admit Stat Procedures Performed Laboratory Results WBC 8.90 K/ul (4.8-10.8) 09/25/24 05: RBC 4.36 M/uL (4.20-5.40) 09/25/24 05:26 Hgb 14.3 g/dl (12.0-16.0) 09/25/24 05:26 POC Hgb 14.6 g/dl (12.0-16.0) 09/23/24 22:50 Hct 43.1 % (37.0-47.0) 09/25/24 05:26 POC Hct 43 % (37-47) 09/23/24 22:50 MCV 98.9 fL (80.0-100.0) 09/25/24 05:26 MCH 32.8 pg (25.0-34.0) 09/25/24 05:26 MCHC 33.2 g/dL (32.0-36.0) 09/25/24 05: RDW Std Deviation 44.9 fL (36.4-46.3) 09/25/24 05:26 RDW Coeff of Rema 12.4 % (11.5-14.5) 09/25/24 05:26 Plt Count 185 K/uL (130-400) 09/25/24 05:26 MPV 9.1 fL (9.4-12.4) L 09/25/24 05:26 Immature Gran % (Auto) 0.4 % 09/25/24 05:26 Neut % (Auto) 89.0 % 09/25/24 05:26 Lymph % (Auto) 6.6 % 09/25/24 05:26 Bartholomew % (Auto) 3.9 % 09/25/24 05:26 Eos % (Auto) 0.0 % 09/25/24 05:26 Baso % (Auto) 0.1 % 09/25/24 05:26 Neut # (Auto) 7.91 K/uL (1.40-6.50) H 09/25/24 05:26 Lymph # (Auto) 0.59 K/uL (1.20-3.40) L 09/25/24 05:26 Bartholomew # (Auto) 0.35 K/uL (0.11-0.59) 09/25/24 05:26 Eos # (Auto) 0.00 K/uL (0.00-0.50) 09/25/24 05:26 Baso # (Auto) 0.01 K/uL (0.00-0.20) 09/25/24 05:26 Immature Gran # (Auto) 0.04 K/uL (0.01-0.20) 09/25/24 05:26 PT 10.3 Seconds (9.0-12.0) 09/23/24 22:32 INR 0.9 (0.9-1.1) 09/23/24 22:32 APTT 24 Seconds (21-31) 09/23/24 22:32 PTT Ratio 0.9 09/23/24 22:32 VBG pH 7.33 (7.36-7.41) L 09/23/24 23:48 VBG pCO2 50 mmHg (38-50) 09/23/24 23:48 VBG pO2 72 mmHg 09/23/24 23:48 VBG HCO3 26 mmol/L 09/23/24 23:48 VBG O2 Saturation 95.1 % 09/23/24 23:48 VBG Base Excess -0.2 mEq/L 09/23/24 23:48 POC Sodium 135 mmol/L (135-144) 09/23/24 22:50 Sodium 137 mmol/L (136-145) 09/25/24 05:26 POC Potassium 5.5 mmol/L (3.3-5.0) H 09/23/24 22:50 Potassium 4.7 mmol/L (3.5-5.1) 09/25/24 05:26 POC Chloride 103 mmol/L (101-112) 09/23/24 22:50 Chloride 101 mmol/L (98-107) 09/25/24 05:26 Carbon Dioxide 34 mmol/L (21-32) H 09/25/24 05:26 POC Total CO2 29 mmol/L (24-31) 09/23/24 22:50 Anion Gap 2 (3-11) L 09/25/24 05:26 POC Anion Gap 10.0 mmol/L (16-25) L 09/23/24 22:50 POC BUN 19 mg/dl (7-18) H 09/23/24 22:50 BUN 14 mg/dl (6-23) 09/25/24 05:26 Creatinine 0.66 mg/dl (0.6-1.2) 09/25/24 05:26 POC Creatinine 0.8 mg/dl (0.6-1.3) 09/23/24 22:50 Est Cr Clr Drug Dosing 83.1 ml/min 09/25/24 05:26 eGFR 99.74 09/25/24 05:26 BUN/Creatinine Ratio 21.2 (10-20) H 09/25/24 05:26 Glucose 170 mg/dl (70-99(Fasting)) H 09/25/24 05: POC Glucose (other) 119 mg/dl (70-99) H 09/23/24 22:50 Lactate 1.6 mmol/L (0.4-2.0) 09/23/24 22:32 Calcium 8.6 mg/dl (8.6-10.3) 09/25/24 05: POC Ioniz Calcium Lexis 1.13 mmol/l (1.12-1.32) 09/23/24 22:50 Magnesium 2.2 mg/dl (1.7-2.4) 09/25/24 05:26 Total Bilirubin 0.6 mg/dl (0.2-1.0) 09/23/24 22:32 AST 23 U/L (13-39) 09/23/24 22:32 ALT 20 U/L (7-52) 09/23/24 22:32 Alkaline Phosphatase 65 U/L (34-104) 09/23/24 22:32 Troponin I High Sens 4.8 pg/ml (0-14) 09/24/24 19:50 Total Protein 6.9 gm/dl (6.0-8.3) 09/23/24 22:32 Albumin 4.2 gm/dl (3.4-5.0) 09/23/24 22:32 Globulin 2.7 gm/dl (2.5-4.0) 09/23/24 22:32 Albumin/Globulin Ratio 1.6 (0.9-2) 09/23/24 22:32 Procalcitonin 0.07 ng/ml (0-0.5) 09/23/24 22:32 Adenovirus (PCR) Not Detected (NotDetected) 09/23/24 Unknown B. pertussis DNA (PCR) Not Detected (NotDetected) 09/23/24 Unknown B.parapertussis DNA PCR Not Detected (NotDetected) 09/23/24 Unknown C. pneumoniae DNA (PCR) Not Detected (NotDetected) 09/23/24 Unknown Coronavirus OC43 (PCR) Not Detected (NotDetected) 09/23/24 Unknown Coronavirus HKU1 (PCR) Not Detected (NotDetected) 09/23/24 Unknown Coronavirus 229E (PCR) Not Detected (NotDetected) 09/23/24 Unknown SARS-CoV-2 (PCR) Not Detected (NotDetected) 09/23/24 Unknown Coronavirus NL63 (PCR) Not Detected (NotDetected) 09/23/24 Unknown Human Metapneumovir PCR Not Detected (NotDetected) 09/23/24 Unknown Influenza Type A (PCR) Not Detected (NotDetected) 09/23/24 Unknown Influenza Type B (PCR) Not Detected (NotDetected) 09/23/24 Unknown M. pneumoniae (PCR) Not Detected (NotDetected) 09/23/24 Unknown Parainfluenza 1 (PCR) Not Detected (NotDetected) 09/23/24 Unknown Parainfluenza 2 (PCR) Not Detected (NotDetected) 09/23/24 Unknown Parainfluenza 3 (PCR) DETECTED (NotDetected) A 09/23/24 Unknown Parainfluenza 4 (PCR) Not Detected (NotDetected) 09/23/24 Unknown RSV (PCR) Not Detected (NotDetected) 09/23/24 Unknown Entero/Rhino (PCR) Not Detected (NotDetected) 09/23/24 Unknown Impressions Chest X-Ray 09/23/24 22:26 Exam(s): XR CXR 1 VIEW EXAM: XR Chest, 1 View CLINICAL HISTORY: Reason for exam: Chest pain, nonspecific. TECHNIQUE: Frontal view of the chest. COMPARISON: November 13, 2023. FINDINGS: Lungs: Unremarkable. No acute infiltration, atelectasis or mass. Pleural space: Unremarkable. No pneumothorax or pleural fluid. Heart: Unremarkable. No cardiomegaly. Mediastinum: Unremarkable. Normal mediastinal contour. Bones/joints: No acute findings. IMPRESSION: No acute findings in the chest. Electronically signed by: Mich Lu MD 09/24/24 01:58 AM Chest CTA 09/23/24 22:31 Exam(s): CTA CHEST IV Amt: 118 cc opti 320 EXAM: CT Angiography Chest With Intravenous Contrast CLINICAL HISTORY: Reason for exam: PE. TECHNIQUE: Axial computed tomographic angiography images of the chest with intravenous contrast. CTDI is 22.46 mGy and DLP is 723.07 mGy-cm. Automated exposure control was utilized for the study. A dose lowering technique was utilized adhering to the principles of ALARA. MIP reconstructed images were created and reviewed. COMPARISON: No relevant prior studies available. FINDINGS: Pulmonary arteries: Unremarkable. No pulmonary embolism. Aorta: No acute findings. No thoracic aortic aneurysm. Lungs: Calcified nodule in the right upper lobe. No acute infiltration or atelectasis. A few very small pulmonary nodules are seen and are of doubtful significance. Pleural space: Unremarkable. No significant effusion. No pneumothorax. Heart: Unremarkable. No cardiomegaly. No significant pericardial effusion. No evidence of RV dysfunction. Mediastinum: Mildly prominent mediastinal lymph nodes. Bones/joints: No acute fracture. No dislocation. Soft tissues: Unremarkable. Lymph nodes: See above. IMPRESSION: No evidence of pulmonary emboli or significant acute cardiopulmonary process. Electronically signed by: Mich Lu MD 09/24/24 01:41 AM Ordered Studies 09/23/24 22:31 CT angio chest PE protocol Stat Hospital Course (1) Acute exacerbation of chronic obstructive airways disease: Ms. Vogt is a 59-year-old female with past medical history significant for calcified granuloma of lung, COPD, hypertension, tobacco use disorder, obesity, history of DVT and pulmonary embolism and no longer on anticoagulation presents with shortness of breath. Patient states 2 weeks ago she was diagnosed with RSV and she was treated with prednisone. Patient now with parainfluenza prompting copd exacerbation--initially on 6 L o2 now down to 3L . Acute hypoxic respiratory failure Acute exacerbation of COPD Secondary to Parainfluenza virus Infection Ongoing tobacco use disorder --Chest CTA:No evidence of pulmonary emboli or significant acute cardiopulmonary process. 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 --Completed 3-day course of azithromycin 2 step: Needs 2 L at rest and 3 L with activity Pulmonary hygiene Continue droplet precaution Mild elevation troponin likely demand due to hypoxia Abnormal EKG Mostly demand ischemia Trop downtrending, low suspicion for acs Echo showed no wall motion abnormality Patient denies any chest pain Transient epistaxis Resolved Tobacco use Counseling, encouraged cessation Hypertension Continue home lisinopril and metoprolol succinate DVT prophylaxis Lovenox SQ CODE STATUS Full Code Disposition Home Total Time Total Time Spent Total Time Spent (In Minutes): 45 minutes Discharge Plan Discharge Items Patient Disposition: Home - Self-Care Reason For Visit: COPD EXACERBATION Discharge Diagnosis: Acute exacerbation of COPD Acute respiratory failure with hypoxia Parainfluenza infection Tobacco use disorder Condition on Discharge: Fair Activity: Per Instructions section Exercise/Sports: Wait until after follow-up appointment Non-emergency contact: Primary Care Provider Call non-emergency contact if: you have any medication questions, your symptoms worsen, your pain is not controlled and your pain is concerning for you Follow-up/Referrals: Pipo Baird MD [Primary Care Provider] - (Date & Time 10/02/2024 10:00 AM Provider: Pipo Baird III, MD [facility] ) Diet: Heart Healthy Addtl Attending Provider Instructions: Follow-up with your primary care physician Dr. Baird on 10/02/2024 10:00 AM -- Your final blood cultures are pending at the time of discharge. Follow-up with your physician for results. --Use supplemental oxygen via nasal cannula 2 L at rest and 3 L with activity as advised. --Quit smoking tobacco as advised --Complete prednisone course as prescribed. Seek immediate medical attention if your symptoms reoccur or worsen Please review medication list provided on discharge for any medication changes as instructed. Please call if you have any questions or problems. You can reach a [facility] hospitalist on duty at [facility] 24 hours a day by calling [phone] Pending Studies at Discharge: Yes Studies:: Blood cultures Stand-Alone Forms: My [facility] [employer], Work/School Release, Smoking Cessation Medications and DC Order Prescriptions: New Spiriva Respimat 1.25 mcg/actuation mist 2 inh inhalation DAILY Qty: 4 0RF prednisone 20 mg Tablet 40 mg PO QAM Qty: 6 0RF Continued lisinopril 10 mg tablet 10 mg PO QAM metoprolol succinate 25 mg tablet extended release 24 hr 25 mg PO QAM albuterol sulfate 1.25 mg/3 mL solution for nebulization 1.25 mg INH Q6H PRN (Reason: shortness of breath or wheezing) Qty: 90 3RF albuterol sulfate 90 mcg/actuation HFA aerosol inhaler 2 puff INHALATION Q6H PRN (Reason: sob) ipratropium-albuterol 0.5 mg-3 mg(2.5 mg base)/3 mL solution for nebulization 3 ml INHALATION Q6 PRN (Reason: Wheezing) fluticasone propion-salmeterol 250-50 mcg/dose blister with device 1 puff Inhalation BID Qty: 1 0RF Discharge Orders: Discharge Order (Routine); Ordered 09/27/24 Ordered By: Som Colbert Admission Data Admit Date/Time: 09/24/24 04:40 Attending Provider: Som Colbert Admit Provider: Christiano Dale Primary Care Provider: Pipo Baird Other Providers: Christiano Dale Other Interventions: Discharge Summary Assessment (RN) Last Done: 09/27/24 12:58
== END 2024-09-27 18:10 | disposition home or self-care (01) | DRG 190 ==
LOC: ED 22:11 → SUATTDRO 09-24 04:40 → EDINP 09-24 04:40 → 2W 09-24 04:58

== ENCOUNTER 2025-03-07 14:25 | Inpatient (IN) ==
--- NOTE | 2025-03-07 14:42 | Emergency Department Note ---
Impression & Plan Acute exacerbation of chronic obstructive airways disease, Acute respiratory failure with hypoxia, Hypomagnesemia, Rhinovirus infection, Enterovirus infection, Elevated troponin ED Provider Note HISTORY OF PRESENT ILLNESS: Patient is a 59-year-old female presenting with shortness of breath. Patient reports she has had progressive worsening shortness of breath over the last 72 hours. Reports that last night and today have been the worst. She reports she was using her at home inhalers and breathing treatments every 3-4 hours and then was up all night because she could not breathe. States she was unable to take her blood pressure medications today secondary to how short of breath she was. On EMS arrival, they report the patient saturations were in the 70s on room air and she had audible wheezing without a stethoscope. She was given 2 breathing treatments and route with EMS and given a 125 mg of IV Solu-Medrol prehospital. On arrival to the ER, the patient denies any chest pain, and just states that it feels very tight in her chest like she cannot breathe. Denies any recent fevers. She reports a cough productive of some "white foamy sputum." Denies any DVT history, but does report she had a PE over 5 years ago. She is not currently on any antiplatelet or anticoagulant therapies. Denies any history of cardiac stents. She denies any recent sick contact exposures. Denies any fevers at home. ROS: as above PHYSICAL EXAM: Constitutional: Patient appears in mild distress. HENT: Head: Normocephalic and atraumatic. Eyes: EOMI, PERRL Mouth/Throat: Mucous membranes moist. Neck: Trachea midline. Neck supple. Cardiovascular: Tachycardic with regular rhythm. No murmurs, rubs or gallops. Intact distal pulses. Pulmonary/Chest: No respiratory distress. Breath sounds clear and equal bilaterally. Patient is conversationally dyspneic. Expiratory wheezes bilaterally. She has a DuoNeb breathing treatment running from EMS. Abdominal: Abdomen soft, no tenderness, rebound or guarding. Musculoskeletal: No tenderness or deformity noted. Trace edema of the bilateral lower extremities extending to the ankles. Skin: Warm and dry. No rash, erythema, pallor or cyanosis Psychiatric: Appropriate mood and affect for situation. Neurological: Alert and keenly responsive. CN II-XII grossly intact, moving all extremities equally and fully. MDM: - Vitals signs showed hypertension and tachycardia. - History obtained via patient. History as above. - Chronic conditions affecting care: HTN; COPD; hx of PE - Differential diagnoses include, but are not limited to: Congestive heart failure; acute coronary syndrome; COPD/asthma exacerbation; pulmonary edema; pulmonary embolism; pneumonia; pneumothorax; viral syndrome - Order placed for continuous cardiac monitoring. At this time, monitor showed rate of 132 bpm with normal sinus rhythm, per my interpretation. - External medical records reviewed. Discharge summary dated 09/27/2024 was reviewed. Patient was admitted at that time for acute shortness of breath secondary to a COPD exacerbation. Her COPD exacerbation was triggered by her parainfluenza virus at that time. - EKG image interpreted by myself showed normal sinus rhythm. Rate tachycardic at 129 bpm. QT 298. No acute ischemic changes. - Patient with significant audible wheezing on presentation to the emergency department despite 2 neb treatments with EMS. She was given an hour-long DuoNeb treatment in the ER and I ordered a gram of IV calcium to help with some further smooth muscle relaxation of the airways. - Laboratory workup interpreted by myself showed leukocytosis (WBC 13.37); normal PT/INR stable electrolytes other than slight hypomagnesemia (Mg 1.6); elevated troponin (24.9) - VBG shows respiratory acidosis with a pH of 7.27 pCO2 64 mmHg. - Patient given 2 g IV Rocephin and 500 mg of oral azithromycin for antibiotic coverage. - CXR image reviewed and interpreted by myself was negative for pneumonia, per my interpretation - Viral respiratory panel positive for rhinovirus/enterovirus infections - Patient reports she not taken her antihypertensive medications or metoprolol today. Her 10 mg p.o. lisinopril and 25 mg p.o. metoprolol succinate were ordered. In addition, 5 mg IV metoprolol to tartrate was also ordered for her persistent tachycardia. Heart rate did improve to the 110-120 bpm region and blood pressure is now down into the 170s systolic. - CT PE negative - UA negative for infection - Discussion was had with insurance case manager about patient's case and need for admission - Hospitalist consulted for admission - [facility]. I have personally spent 61 minutes of critical care time in the direct management of this patient. This includes bedside care, interpretation of diagnostic studies, and testing, discussion with consultants, patient, and family members, and other required patient management activities. This 61 minutes is in excess of all separately billable procedures. ASSESSMENT AND PLAN: Diagnosis: Acute COPD exacerbation; acute respiratory failure with hypoxia; hypomagnesemia; rhinovirus infection; enterovirus infection; elevated troponin Plan: Admit Past Med/Surg History Problem List (Updated 03/07/25 @ 16:48 by Carla Huber MD) Elevated troponin (Acute) Enterovirus infection (Acute) Rhinovirus infection (Acute) Hypomagnesemia (Acute) Acute respiratory failure with hypoxia (Acute) Parainfluenza infection (Acute) Type 2 acute myocardial infarction (Acute) Acute exacerbation of chronic obstructive airways disease (Acute) Cervical adenopathy (Chronic) Medical History Calcified granuloma of lung "RUL" Pulmonary embolism HTN (hypertension) Tobacco use disorder COPD (chronic obstructive pulmonary disease) History of asthma Surgical History History of breast augmentation S/P ACL reconstruction History of hysterectomy Family History Other Diabetes Hypertension Lung disease Social History Smoking Status: Current every day smoker Tobacco Type: Cigarettes Second Hand Exposure: No; Do You Dip or Chew Tobacco: No; Hx Alcohol Use: Yes Alcohol type: wine Hx Substance Use: No Preferred Language: Icelandic Communication Ability: Effective Volunteer Services Coordinator Required: No Beliefs That Will Affect Care: None marital status: Current Living Situation: Parent and Significant Other current occupational status: employed Feels Safe at Home: Yes Assistive Devices: Nebulizer Allergies Allergies Allergy/AdvReac Type Severity Reaction Status Date / Time latex Allergy Unknown Unknown Verified 03/07/25 16:35 codeine AdvReac Intermediate N/V, HEARS Verified 03/07/25 16:35 VIOCES Home Meds Home Medications Medication Instructions Recorded Confirmed lisinopril 10 mg tablet 10 mg PO QAM 08/29/18 03/07/25 metoprolol succinate 25 mg 25 mg PO QAM 08/29/18 03/07/25 tablet,extended release 24 hr albuterol sulfate 90 mcg/actuation 2 puff inhalation Q6H PRN sob 11/13/23 03/07/25 aerosol inhaler ipratropium 0.5 mg-albuterol 3 mg 3 ml inhalation Q6 PRN Wheezing 09/24/24 03/07/25 (2.5 mg base)/3 mL nebulization soln guaifenesin 600 mg tablet, 600 mg PO Q12H PRN Congestion 03/07/25 03/07/25 extended release 12 hr (Mucinex) miconazole nitrate 2 % topical 1 applic topical DIRECTED 03/07/25 03/07/25 cream (Antifungal (miconazole)) neomycin-bacitracn Zn-polymyx 3.5 1 applic topical BID PRN SKIN 03/07/25 03/07/25 mg-400 unit-5,000 unit/gram top WOUND DIRECTED. oint (Triple Antibiotic) phenylephrine 5 1 cap PO DIRECTED PRN COLD/FLU 03/07/25 03/07/25 mg-dextromethorphan 10 SYMPTOMS mg-acetaminophen 325 mg capsule ([employer] DayQuil Cold and Flu Relief) Previous Rx's Medication Instructions Recorded fluticasone 250 mcg-salmeterol 50 1 puff inhalation BID #1 ea 09/27/24 mcg/dose blistr powdr for inhalation Results & Data (ED) Vital Signs Vital Signs - 24 hr 03/07/25 14:10 03/07/25 14:32 03/07/25 14:33 Temperature 37.1 C Temperature Source Oral Pulse Rate 132 H 133 H Pulse Rate [Apical] Respiratory Rate 24 Respiratory Effort / Characteristics Short of Breath Spontaneous Short of Breath Respiratory Depth Normal Respiratory Pattern Regular Agonal Blood Pressure 165/125 H Blood Pressure [Right Arm] Blood Pressure Mean 138 Blood Pressure Mean [Right Arm] Pulse Oximetry 98 Oxygen Delivery Method Nebulizer Oxygen Flow Rate Sepsis Recent Fever Within 48 Hours No Sepsis New/Unexplained Change in Mental Status N/A Sepsis Action Taken by Nursing Physician Notified Oxygen Flow Rate - Titration Pulse Oximetry Post Tiitration 03/07/25 14:33 03/07/25 14:38 03/07/25 16:12 Temperature Temperature Source Pulse Rate 142 H Pulse Rate [Apical] Respiratory Rate Respiratory Effort / Characteristics Respiratory Depth Respiratory Pattern Blood Pressure 182/127 H Blood Pressure [Right Arm] Blood Pressure Mean Blood Pressure Mean [Right Arm] Pulse Oximetry 98 93 Oxygen Delivery Method Nasal Cannula Nebulizer Nasal Cannula Oxygen Flow Rate 10 4 Sepsis Recent Fever Within 48 Hours Sepsis New/Unexplained Change in Mental Status Sepsis Action Taken by Nursing Oxygen Flow Rate - Titration 4 Pulse Oximetry Post Tiitration 93 03/07/25 16:14 Temperature Temperature Source Pulse Rate Pulse Rate [Apical] 117 H Respiratory Rate 18 Respiratory Effort / Characteristics Labored Respiratory Depth Normal Respiratory Pattern Regular Blood Pressure Blood Pressure [Right Arm] 178/111 H Blood Pressure Mean Blood Pressure Mean [Right Arm] 133 Pulse Oximetry 93 Oxygen Delivery Method Nasal Cannula Oxygen Flow Rate 5 Sepsis Recent Fever Within 48 Hours Sepsis New/Unexplained Change in Mental Status Sepsis Action Taken by Nursing Oxygen Flow Rate - Titration Pulse Oximetry Post Tiitration Laboratory Data 03/07/25 14:25 03/07/25 14:25 Lab Results 03/07/25 03/07/25 03/07/25 Range/Units 14:25 15:07 15:32 WBC 13.37 H (4.8-10.8) K/ul RBC 4.90 (4.20-5.40) M/uL Hgb 15.7 (12.0-16.0) g/dl Hct 46.3 (37.0-47.0) % MCV 94.5 (80.0-100.0) fL MCH 32.0 (25.0-34.0) pg MCHC 33.9 (32.0-36.0) g/dL RDW Std Deviation 44.6 (36.4-46.3) fL RDW Coeff of Rema 12.9 (11.5-14.5) % Plt Count 176 (130-400) K/uL MPV 9.1 L (9.4-12.4) fL Immature Gran % (Auto) 0.4 % Neut % (Auto) 88.5 % Lymph % (Auto) 7.0 % [place] % (Auto) 3.2 % Eos % (Auto) 0.5 % Baso % (Auto) 0.4 % Neut # (Auto) 11.82 H (1.40-6.50) K/uL Lymph # (Auto) 0.94 L (1.20-3.40) K/uL [place] # (Auto) 0.43 (0.11-0.59) K/uL Eos # (Auto) 0.07 (0.00-0.50) K/uL Baso # (Auto) 0.06 (0.00-0.20) K/uL Immature Gran # (Auto) 0.05 (0.01-0.20) K/uL PT 10.3 (9.0-12.0) Seconds INR 0.9 (0.9-1.1) VBG pH 7.27 L (7.36-7.41) VBG pCO2 64 H (38-50) mmHg VBG pO2 46 mmHg VBG HCO3 29 mmol/L VBG O2 Saturation 77.4 % VBG Base Excess 0.9 mEq/L Sodium 136 (136-145) mmol/L Potassium 4.1 (3.5-5.1) mmol/L Chloride 100 (98-107) mmol/L Carbon Dioxide 27 (21-32) mmol/L Anion Gap 9 (3-11) BUN 11 (6-23) mg/dl Creatinine 0.66 (0.6-1.2) mg/dl Est Cr Clr Drug Dosing 81.1 ml/min eGFR 99.74 BUN/Creatinine Ratio 16.7 (10-20) Glucose 130 H (70-99(Fasting)) mg/dl Calcium 9.0 (8.6-10.3) mg/dl Magnesium 1.6 L (1.7-2.4) mg/dl Total Bilirubin 0.7 (0.2-1.0) mg/dl AST 28 (13-39) U/L ALT 23 (7-52) U/L Alkaline Phosphatase 77 (34-104) U/L Troponin I High Sens 24.9 H (0-14) pg/ml Total Protein 7.3 (6.0-8.3) gm/dl Albumin 4.1 (3.4-5.0) gm/dl Globulin 3.2 (2.5-4.0) gm/dl Albumin/Globulin Ratio 1.3 (0.9-2) Urine Color Urine Appearance (Clear) Urine pH (4.5-7.5) Ur Specific [place] (1.000-1.030) Urine Protein (Negative) Urine Glucose (UA) (Negative) Urine Ketones (Negative) Urine Blood (Negative) Urine Nitrite (Negative) Urine Bilirubin (Negative) Urine Urobilinogen (Negative) Ur Leukocyte Esterase (Negative) Urine Comment Adenovirus (PCR) Not Detected (NotDetected) B. pertussis DNA (PCR) Not Detected (NotDetected) B.parapertussis DNA PCR Not Detected (NotDetected) C. pneumoniae DNA (PCR) Not Detected (NotDetected) Coronavirus OC43 (PCR) Not Detected (NotDetected) Coronavirus HKU1 (PCR) Not Detected (NotDetected) Coronavirus 229E (PCR) Not Detected (NotDetected) SARS-CoV-2 (PCR) Not Detected (NotDetected) Coronavirus NL63 (PCR) Not Detected (NotDetected) Human Metapneumovir PCR Not Detected (NotDetected) Influenza Type A (PCR) Not Detected (NotDetected) Influenza Type B (PCR) Not Detected (NotDetected) M. pneumoniae (PCR) Not Detected (NotDetected) Parainfluenza 1 (PCR) Not Detected (NotDetected) Parainfluenza 2 (PCR) Not Detected (NotDetected) Parainfluenza 3 (PCR) Not Detected (NotDetected) Parainfluenza 4 (PCR) Not Detected (NotDetected) RSV (PCR) Not Detected (NotDetected) Entero/Rhino (PCR) DETECTED A (NotDetected) 03/07/25 Range/Units Unknown WBC (4.8-10.8) K/ul RBC (4.20-5.40) M/uL Hgb (12.0-16.0) g/dl Hct (37.0-47.0) % MCV (80.0-100.0) fL MCH (25.0-34.0) pg MCHC (32.0-36.0) g/dL RDW Std Deviation (36.4-46.3) fL RDW Coeff of Rema (11.5-14.5) % Plt Count (130-400) K/uL MPV (9.4-12.4) fL Immature Gran % (Auto) % Neut % (Auto) % Lymph % (Auto) % [place] % (Auto) % Eos % (Auto) % Baso % (Auto) % Neut # (Auto) (1.40-6.50) K/uL Lymph # (Auto) (1.20-3.40) K/uL [place] # (Auto) (0.11-0.59) K/uL Eos # (Auto) (0.00-0.50) K/uL Baso # (Auto) (0.00-0.20) K/uL Immature Gran # (Auto) (0.01-0.20) K/uL PT (9.0-12.0) Seconds INR (0.9-1.1) VBG pH (7.36-7.41) VBG pCO2 (38-50) mmHg VBG pO2 mmHg VBG HCO3 mmol/L VBG O2 Saturation % VBG Base Excess mEq/L Sodium (136-145) mmol/L Potassium (3.5-5.1) mmol/L Chloride (98-107) mmol/L Carbon Dioxide (21-32) mmol/L Anion Gap (3-11) BUN (6-23) mg/dl Creatinine (0.6-1.2) mg/dl Est Cr Clr Drug Dosing ml/min eGFR BUN/Creatinine Ratio (10-20) Glucose (70-99(Fasting)) mg/dl Calcium (8.6-10.3) mg/dl Magnesium (1.7-2.4) mg/dl Total Bilirubin (0.2-1.0) mg/dl AST (13-39) U/L ALT (7-52) U/L Alkaline Phosphatase (34-104) U/L Troponin I High Sens (0-14) pg/ml Total Protein (6.0-8.3) gm/dl Albumin (3.4-5.0) gm/dl Globulin (2.5-4.0) gm/dl Albumin/Globulin Ratio (0.9-2) Urine Color Yellow Urine Appearance Clear (Clear) Urine pH 5.5 (4.5-7.5) Ur Specific [place] 1.027 (1.000-1.030) Urine Protein Negative (Negative) Urine Glucose (UA) Negative (Negative) Urine Ketones Negative (Negative) Urine Blood Negative (Negative) Urine Nitrite Negative (Negative) Urine Bilirubin Negative (Negative) Urine Urobilinogen Negative (Negative) Ur Leukocyte Esterase Negative (Negative) Urine Comment Adenovirus (PCR) (NotDetected) B. pertussis DNA (PCR) (NotDetected) B.parapertussis DNA PCR (NotDetected) C. pneumoniae DNA (PCR) (NotDetected) Coronavirus OC43 (PCR) (NotDetected) Coronavirus HKU1 (PCR) (NotDetected) Coronavirus 229E (PCR) (NotDetected) SARS-CoV-2 (PCR) (NotDetected) Coronavirus NL63 (PCR) (NotDetected) Human Metapneumovir PCR (NotDetected) Influenza Type A (PCR) (NotDetected) Influenza Type B (PCR) (NotDetected) M. pneumoniae (PCR) (NotDetected) Parainfluenza 1 (PCR) (NotDetected) Parainfluenza 2 (PCR) (NotDetected) Parainfluenza 3 (PCR) (NotDetected) Parainfluenza 4 (PCR) (NotDetected) RSV (PCR) (NotDetected) Entero/Rhino (PCR) (NotDetected) Administered Medications Discontinued Medications Albuterol (Albut/Ipratrop 3mg/0.5mg Neb 3 Ml Vial) 12 ml NEB ONE ONE; Protocol Stop: 03/07/25 14:39 Last Admin: 03/07/25 15:03 Dose: 12 ml Documented By: NISHA Azithromycin (Azithromycin 250 Mg Tab) 500 mg PO NOW ONE Stop: 03/07/25 15:10 Last Admin: 03/07/25 15:34 Dose: 500 mg Documented By: amanda Magnesium Sulfate/Dextrose (Magnesium Sulfate / D5w) 1 gm in 100 mls @ 100 mls/hr IV NOW STA Stop: 03/07/25 15:37 Last Infusion: 03/07/25 16:07 Dose: Infused Documented By: amanda Admin: 03/07/25 15:03 Dose: 100 mls/hr Documented By: NISHA Ceftriaxone Sodium (Rocephin) 2,000 mg in 50 mls @ 100 mls/hr IV NOW STA Stop: 03/07/25 15:38 Last Infusion: 03/07/25 16:07 Dose: Infused Documented By: amanda Admin: 03/07/25 15:34 Dose: 100 mls/hr Documented By: amanda Ioversol (Optiray 320 125ml) 115 ml IV ONCE ONE Stop: 03/07/25 16:02 Last Admin: 03/07/25 16:01 Dose: 115 ml Documented By: MCKAYLA Lisinopril (Lisinopril 5 Mg Tab) 10 mg PO NOW ONE Stop: 03/07/25 15:48 Last Admin: 03/07/25 15:53 Dose: 10 mg Documented By: NISHA Metoprolol Succinate (Metoprolol Succ 25mg Ext Rel Tab) 25 mg PO NOW STA Stop: 03/07/25 15:48 Last Admin: 03/07/25 16:19 Dose: 25 mg Documented By: NISHA Metoprolol Tartrate (Metoprolol Tartrate 1 Mg/Ml Vial) 5 mg IV NOW STA Stop: 03/07/25 15:48 Last Admin: 03/07/25 16:12 Dose: 5 mg Documented By: NISHA Imaging Data Radiologist's Impression: Chest CTA 03/07/25 14:38 Technique: Axial computed tomography images were obtained of the chest after the administration of intravenous contrast according to the CT angiogram protocol Comparison is made to the prior CT dated 09/23/2024 Findings: There is no definite sign of pulmonary embolism. There is an unchanged 4 mm lingular nodule. There is a calcified granuloma in the right upper lobe. There is no sign of pneumonia. There is mild lingular atelectasis. There is no pleural effusion or pneumothorax. There is no sign of pulmonary fibrosis or other diffuse interstitial process. No endobronchial lesion is seen There are small subcentimeter mediastinal lymph nodes. There is no overt mediastinal, hilar, or axillary adenopathy. The thoracic aorta appears unremarkable with no sign of aneurysm or dissection. There is no pericardial effusion There are bilateral breast implants. The visualized upper abdomen appears unremarkable. No fracture is seen. No focal osseous lesion is evident Impression: 1. No definite sign of pulmonary embolism 2. Unchanged small lingular nodule, likely benign. A follow-up chest CT could be obtained in 6 months to ensure continued stability Electronically signed by Klever Resendez 03-07-2025 4:42 PM Chest X-Ray 03/07/25 14:38 XR chest 1V portable HISTORY: 59 years-old Female Dyspnea acute shortness of breath COMPARISON: Chest radiograph 09/23/2024 TECHNIQUE: AP view of the chest FINDINGS: Cardiomediastinal and hilar silhouettes are within normal limits. No pneumothorax, pleural effusion, airspace consolidation or pulmonary edema. Spondylitic spurring of the spine. IMPRESSION: No acute process. ACT 112: Negative or not required by law. The above report was generated using voice recognition software. It may contain grammatical, syntax or spelling errors. Electronically signed by: Rao Gardner M.D. 03/07/2025 2:52 PM Discharge Plan Visit Data Chief Complaint: Shortness of Breath/Dyspnea Stated Complaint: SOB ED Provider: Carla Huber Discharge Problem: Acute exacerbation of chronic obstructive airways disease, Acute respiratory failure with hypoxia, Hypomagnesemia, Rhinovirus infection, Enterovirus infection, Elevated troponin Condition: Fair Forms Stand Alone Forms: [employer] Prescriptions Prescriptions: No Action lisinopril 10 mg tablet 10 mg PO QAM metoprolol succinate 25 mg tablet extended release 24 hr 25 mg PO QAM albuterol sulfate 90 mcg/actuation HFA aerosol inhaler 2 puff INHALATION Q6H PRN (Reason: sob) ipratropium-albuterol 0.5 mg-3 mg(2.5 mg base)/3 mL solution for nebulization 3 ml INHALATION Q6 PRN (Reason: Wheezing) fluticasone propion-salmeterol 250-50 mcg/dose blister with device 1 puff Inhalation BID Qty: 1 0RF Triple Antibiotic 3.5mg-400 unit- 5,000 unit/gram Ointment 1 applic TOPICAL BID PRN (Reason: SKIN WOUND DIRECTED.) miconazole nitrate [Antifungal (miconazole)] 2 % Cream 1 applic TOPICAL DIRECTED Vicks DayQuil Cold-Flu Relief 5-10-325 mg Capsule 1 cap PO DIRECTED PRN (Reason: COLD/FLU SYMPTOMS) guaifenesin [Mucinex] 600 mg Tablet Extended Release 12hr 600 mg PO Q12H PRN (Reason: Congestion) Referrals Referrals: Pipo Baird MD [Primary Care Provider] -
[2025-03-07 14:52] LABS: Hematocrit (blood only) 46.3 % (37.0-47.0); Hemoglobin 15.7 g/dl (12.0-16.0); Immature Granulocytes # (auto) 0.05 K/uL (0.01-0.20); Immature Granulocytes % (auto) 0.4 %; Mean Corpuscular Hemoglobin 32.0 pg (25.0-34.0); Mean Corpuscular Volume 94.5 fL (80.0-100.0); Platelet Count 176 K/uL (130-400); RDW Standard Deviation 44.6 fL (36.4-46.3); Red Blood Count 4.90 M/uL (4.20-5.40); White Blood Count 13.37 K/ul (4.8-10.8)
--- NOTE | 2025-03-07 14:53 | XRay Report ---
XR chest 1V portable HISTORY: 59 years-old Female Dyspnea acute shortness of breath COMPARISON: Chest radiograph 09/23/2024 TECHNIQUE: AP view of the chest FINDINGS: Cardiomediastinal and hilar silhouettes are within normal limits. No pneumothorax, pleural effusion, airspace consolidation or pulmonary edema. Spondylitic spurring of the spine. IMPRESSION: No acute process. ACT 112: Negative or not required by law. The above report was generated using voice recognition software. It may contain grammatical, syntax o r spelling errors. Electronically signed by: Rao Gardner M.D. 03/07/2025 2:52 PM
[2025-03-07] MEDS: ALBUT/IPRATROP 3MG/0.5MG NEB 3 ML VIAL NEB ONE (15:03)
[2025-03-07] MEDS: MAGNESIUM SULFATE / D5W 1 GM/100 ML BAG IV STA (15:03)
[2025-03-07 15:15] LABS: Alanine Aminotransferase 23.0 U/L (7-52); Albumin Globulin Ratio 1.3 (0.9-2); Alkaline Phosphatase 77.0 U/L (34-104); Anion Gap 9.0 (3-11); Bilirubin,Total 0.7 mg/dl (0.2-1.0); Blood Urea Nitrogen 11.0 mg/dl (6-23); Calcium 9.0 mg/dl (8.6-10.3); Carbon Dioxide 27.0 mmol/L (21-32); Chloride 100.0 mmol/L (98-107); Creatinine Clr Calc Pharmacy 81.1 ml/min; Globulin 3.2 gm/dl (2.5-4.0); Glucose 130.0 mg/dl (70-99(Fasting)); Magnesium 1.6 mg/dl (1.7-2.4); Potassium 4.1 mmol/L (3.5-5.1); Sodium 136.0 mmol/L (136-145); Total Protein 7.3 gm/dl (6.0-8.3)
[2025-03-07 15:24] LABS: INR 0.9 (0.9-1.1); Prothrombin Time 10.3 Seconds (9.0-12.0)
[2025-03-07] MEDS: cefTRIAXone SODIUM 2,000 MG/50 ML BAG IV STA (15:34)
[2025-03-07] MEDS: AZITHROMYCIN 250 MG TAB PO ONE (15:34)
[2025-03-07 15:43] LABS: Base Excess VBG 0.9 mEq/L; HCO3 VBG 29 mmol/L; Oxygen Saturation VBG 77.4 %; PCO2 VBG 64 mmHg (38-50); PO2 VBG 46 mmHg; pH VBG 7.27 (7.36-7.41)
[2025-03-07] MEDS: OPTIRAY 320 125ml IV ONE (16:01)
[2025-03-07 16:08] LABS: Chlamydia pneumoniae PCR Not Detected (NotDetected); Coronavirus 229E PCR Not Detected (NotDetected); Coronavirus CoV-2 (COVID19)PCR Not Detected (NotDetected); Coronavirus HKU1 PCR Not Detected (NotDetected); Coronavirus NL63 PCR Not Detected (NotDetected); Coronavirus OC43PCR Not Detected (NotDetected); Human Metapneumovirus PCR Not Detected (NotDetected); Parainfluenza Virus 1 PCR Not Detected (NotDetected); Parainfluenza Virus 2 PCR Not Detected (NotDetected); Parainfluenza Virus 3 PCR Not Detected (NotDetected); Parainfluenza Virus 4 PCR Not Detected (NotDetected); Respiratory Syncytial VirusPCR Not Detected (NotDetected); Rhinovirus/Enterovirus PCR DETECTED (NotDetected)
[2025-03-07] MEDS: METOPROLOL TARTRATE 1 MG/ML VIAL IV STA (16:12)
[2025-03-07] MEDS: METOPROLOL SUCC 25MG EXT REL TAB PO STA (16:19)
--- NOTE | 2025-03-07 16:43 | CT Scan Report ---
Technique: Axial computed tomography images were obtained of the chest after the administration of intravenous contrast according to the CT angiogram protocol Comparison is made to the prior CT dated 09/23/2024 Findings: There is no definite sign of pulmonary embolism. There is an unchanged 4 mm lingular nodule. There is a calcified granuloma in the right upper lobe. There is no sign of pneumonia. There is mild lingular atelectasis. There is no pleural effusion or pneumothorax. There is no sign of pulmonary fibrosis or other diffuse interstitial process. No endobronchial lesion is seen There are small subcentimeter mediastinal lymph nodes. There is no overt mediastinal, hilar, or axillary adenopathy. The thoracic aorta appears unremarkable with no sign of aneurysm or dissection. There is no pericardial effusion There are bilateral breast implants. The visualized upper abdomen appears unremarkable. No fracture is seen. No focal osseous lesion is evident Impression: 1. No definite sign of pulmonary embolism 2. Unchanged small lingular nodule, likely benign. A follow-up chest CT could be obtained in 6 months to ensure continued stability Electronically signed by Klever Resendez 03-07-2025 4:42 PM
[2025-03-07 16:46] LABS: Appearance Urine Clear (Clear); Glucose Urine UA Negative (Negative)
--- NOTE | 2025-03-07 16:59 | History & Physical Report ---
Date of Service March 07, 2025 Assessment & Plan (1) Acute respiratory failure with hypoxia: (2) Hypomagnesemia: (3) Rhinovirus infection: (4) Enterovirus infection: (5) Acute exacerbation of chronic obstructive airways disease: Plan Acute COPD exacerbation Acute hypoxic respiratory failure Acute rhinovirus/enterovirus infection - Admit to med surg with tele - Solumedrol 40 mg IV TID for now, wean to prednisone hopefully in next 2 days - Supportive care with mucinex, duonebs QID and Q2H prn, Formoterol DuoNeb, perforomist nebs, tessalon pearls - Biofire (+) entero/rhinovirus - Wean O2 prn, does not wear at baseline, currently requiring 5 L via OxyMask. - WBC at time of admission = 13.37 with left shift - CXR reviewed as above personally, no obvious pna - CTA reviewed personally, noted pulmonary nodule - Unchanged small lingular nodule, likely benign noted, will need follow up with screening as outpatient in 6 mo. - Given IV azithromycin and ceftriaxone in the ER, will continue for antiinflammatory properties. 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 tinea pedis with superimposed cellulitis?, follow Hypomagnesemia - Replaced with mag 1gm IV, 1.6 on admission HTN - Cont home meds; metoprolol, was given lopressor 5 mg IV in the ER, tachycardia is likely induced by multiple DuoNeb treatments in the ER/EMS today DVT ppx: teds, scds, lovenox sub q Lines: PIV x 1 FEN/GI: HH CODE: Full code Dispo: From home, likely to remain in the hospital x 1-2 days I spent a total of 75 minutes with greater than 50% of that time face to face with the patient, personally reviewing all current laboratories, imaging studies, past medication reconciliation, outpatient chart review, and discussion with specialists to collaborate care for the patient excluding time spent in the performance of separately billed services or time spent by another provider/QHP. Please see attending documentation for corrections and/or additions. History of Present Illness Chief Complaint: Shortness of breath Primary Care Provider: Pipo Baird MD This is a 59 yo F with PMHX of COPD, hx of PE/DVT, obesity, tobacco use disorder, HTN who presents to the hospital with worsening shortness of breath over the past 24 hours. She was previously hospitalized in September 2024 for COPD exacerbation. Patient reports that her symptoms started about 48 hours ago, she was at a alliance party on Wednesday evening and a large group of people, started to feel ill on Wednesday morning. States that this started with a simple cough. She had started taking DayQuil, Mucinex, using a Vicks vapor rub, and other supportive care with her as needed inhalers which she has at home however cough seemed to progress. She noted sputum production which was white last evening. She had a coughing fit that prompted a episode of vomiting last evening as well. Denies any fevers, chills or sweats. She has difficulty ambulating, participating in ADLs due to progressive shortness of breath with minimal exertion. Pt called 911 at home, upon EMS arrival to her home she was found to be hypoxic in the 70s. EMS provided solumedrol 125 mcg IV, was given duoneb treatment. Once in the ER,was given another 15 minute duoneb treatment, and then an hour long duoneb treatment, along with 1 gm IV mag. Currently pt is on 5 L O2, o2 sats 93%. Seated, speaking in long sentances, she is mildly dyspneic during my visit in the ER. Patient is still smoking 5 to 6 cigarettes daily. Denies any supplemental O2 at baseline. Occasional alcohol use. no illicit drug use. Allergies Allergy/AdvReac Type Severity Reaction Status Date / Time latex Allergy Unknown Unknown Verified 03/07/25 16:35 codeine AdvReac Intermediate N/V, HEARS Verified 03/07/25 16:35 VIOCES Home Medications Medication Instructions Recorded Confirmed Type lisinopril 10 mg tablet 10 mg PO QAM 08/29/18 03/07/25 History metoprolol succinate 25 mg 25 mg PO QAM 08/29/18 03/07/25 History tablet,extended release 24 hr albuterol sulfate 90 mcg/actuation 2 puff inhalation Q6H PRN sob 11/13/23 03/07/25 History aerosol inhaler ipratropium 0.5 mg-albuterol 3 mg 3 ml inhalation Q6 PRN Wheezing 09/24/24 03/07/25 History (2.5 mg base)/3 mL nebulization soln fluticasone 250 mcg-salmeterol 50 1 puff inhalation BID #1 ea 09/27/24 03/07/25 Rx mcg/dose blistr powdr for inhalation guaifenesin 600 mg tablet, 600 mg PO Q12H PRN Congestion 03/07/25 03/07/25 Histo ry extended release 12 hr (Mucinex) miconazole nitrate 2 % topical 1 applic topical DIRECTED 03/07/25 03/07/25 History cream (Antifungal (miconazole)) neomycin-bacitracn Zn-polymyx 3.5 1 applic topical BID PRN SKIN 03/07/25 03/07/25 History mg-400 unit-5,000 unit/gram top WOUND DIRECTED. oint (Triple Antibiotic) phenylephrine 5 1 cap PO DIRECTED PRN COLD/FLU 03/07/25 03/07/25 History mg-dextromethorphan 10 SYMPTOMS mg-acetaminophen 325 mg capsule (Vicks DayQuil Cold and Flu Relief) Past Med/Surg History Problem List (Updated 03/07/25 @ 16:48 by Carla Huber MD) Elevated troponin (Acute) Enterovirus infection (Acute) Rhinovirus infection (Acute) Hypomagnesemia (Acute) Acute respiratory failure with hypoxia (Acute) Parainfluenza infection (Acute) Type 2 acute myocardial infarction (Acute) Acute exacerbation of chronic obstructive airways disease (Acute) Cervical adenopathy (Chronic) Medical History Calcified granuloma of lung "RUL" Pulmonary embolism HTN (hypertension) Tobacco use disorder COPD (chronic obstructive pulmonary disease) History of asthma Surgical History History of breast augmentation S/P ACL reconstruction History of hysterectomy Family History Other Diabetes Hypertension Lung disease Social History Smoking Status: Current every day smoker Tobacco Type: Cigarettes Second Hand Exposure: No; Do You Dip or Chew Tobacco: No; Hx Alcohol Use: Yes Alcohol type: wine Hx Substance Use: No Preferred Language: Ecuadorean Communication Ability: Effective Practice Management Consultant Required: No Beliefs That Will Affect Care: None marital status: Current Living Situation: Parent and Significant Other current occupational status: employed Feels Safe at Home: Yes Assistive Devices: Nebulizer Review of Systems Review of Systems: Constitutional: No fever, sweats or chills Eyes: No diplopia, no worsening or blurred vision ENT: normal hearing, no trouble swallowing Respiratory: + As per HPI, +cough, +sputum, +dyspnea at rest or on exertion Cardiovascular: No chest pain, tightness or palpitations Abdomen: No pain, nausea, + episode vomiting x 1, admits to episode of diarrhea last night, no constipation Musculoskeletal: No joint pain, calf pain, swelling Neurologic: No weakness, numbness/tingling, or balance problems Psychiatric: No anxiety or depression Skin: No rash or itch Physical Exam Physical Exam: General: awake, alert, no apparent distress, obese white female Head: Normocephalic, atraumatic ENT: PERRL, EOMI, no pharyngeal exudate, mucous membranes moist Chest: Requiring 5 L O2 via NC, tight breath sounds, +barrel chested, + expiratory wheezing heard in all jackson, left > right, no rales or rhonchi Cardiac: Regular rate and rhythm, no murmur, no JVD, normal peripheral pulses, good capillary refill Abdominal: NABS x 4 quadrants, soft, nondistended, nontender to palpation, no rebound or guarding Extremities: Normal inspection, no peripheral edema or erythema, calfs nontender to palpation Psych: Normal mood and affect Skin: bright red erythematous pruritic rash R foot between the great and 2nd toe. Areas of scabbing. Neuro: AAO x 3, strength intact bilaterally and rated 5/5, no motor deficits, speech is clear, no peripheral sensory deficits Results & Data Results & Data Vital Signs (Past 12 Hours) Vital Signs Temp Pulse Pulse Resp BP BP Pulse Ox 03/07/25 16:14 117 H 18 178/111 H 93 03/07/25 16:12 142 H 182/127 H 03/07/25 14:38 93 03/07/25 14:33 98 03/07/25 14:32 133 H 03/07/25 14:10 37.1 C 132 H 24 165/125 H 98 O2 Del Method O2 Flow Rate 03/07/25 16:14 Nasal Cannula 5 03/07/25 16:12 03/07/25 14:38 Nasal Cannula 4 03/07/25 14:33 Nasal Cannula, Nebulizer 10 03/07/25 14:32 03/07/25 14:10 Nebulizer Laboratory Results 03/07/25 03/07/25 03/07/25 Unknown 15:32 15:07 WBC RBC Hgb Hct MCV MCH MCHC RDW Std Deviation RDW Coeff of Rema Plt Count MPV Immature Gran % (Auto) Neut % (Auto) Lymph % (Auto) [place] % (Auto) Eos % (Auto) Baso % (Auto) Neut # (Auto) Lymph # (Auto) [place] # (Auto) Eos # (Auto) Baso # (Auto) Immature Gran # (Auto) PT INR VBG pH 7.27 L VBG pCO2 64 H VBG pO2 46 VBG HCO3 29 VBG O2 Saturation 77.4 VBG Base Excess 0.9 Sodium Potassium Chloride Carbon Dioxide Anion Gap BUN Creatinine Est Cr Clr Drug Dosing eGFR BUN/Creatinine Ratio Glucose Calcium Magnesium Total Bilirubin AST ALT Alkaline Phosphatase Troponin I High Sens Total Protein Albumin Globulin Albumin/Globulin Ratio Urine Color Yellow Urine Appearance Clear Urine pH 5.5 Ur Specific [place] 1.027 Urine Protein Negative Urine Glucose (UA) Negative Urine Ketones Negative Urine Blood Negative Urine Nitrite Negative Urine Bilirubin Negative Urine Urobilinogen Negative Ur Leukocyte Esterase Negative Urine Comment Adenovirus (PCR) Not Detected B. pertussis DNA (PCR) Not Detected B.parapertussis DNA PCR Not Detected C. pneumoniae DNA (PCR) Not Detected Coronavirus OC43 (PCR) Not Detected Coronavirus HKU1 (PCR) Not Detected Coronavirus 229E (PCR) Not Detected SARS-CoV-2 (PCR) Not Detected Coronavirus NL63 (PCR) Not Detected Human Metapneumovir PCR Not Detected Influenza Type A (PCR) Not Detected Influenza Type B (PCR) Not Detected M. pneumoniae (PCR) Not Detected Parainfluenza 1 (PCR) Not Detected Parainfluenza 2 (PCR) Not Detected Parainfluenza 3 (PCR) Not Detected Parainfluenza 4 (PCR) Not Detected RSV (PCR) Not Detected Entero/Rhino (PCR) DETECTED A 03/07/25 14:25 WBC 13.37 H RBC 4.90 Hgb 15.7 Hct 46.3 MCV 94.5 MCH 32.0 MCHC 33.9 RDW Std Deviation 44.6 RDW Coeff of Rema 12.9 Plt Count 176 MPV 9.1 L Immature Gran % (Auto) 0.4 Neut % (Auto) 88.5 Lymph % (Auto) 7.0 [place]ier % (Auto) 3.2 Eos % (Auto) 0.5 Baso % (Auto) 0.4 Neut # (Auto) 11.82 H Lymph # (Auto) 0.94 L Lanier # (Auto) 0.43 Eos # (Auto) 0.07 Baso # (Auto) 0.06 Immature Gran # (Auto) 0.05 PT 10.3 INR 0.9 VBG pH VBG pCO2 VBG pO2 VBG HCO3 VBG O2 Saturation VBG Base Excess Sodium 136 Potassium 4.1 Chloride 100 Carbon Dioxide 27 Anion Gap 9 BUN 11 Creatinine 0.66 Est Cr Clr Drug Dosing 81.1 eGFR 99.74 BUN/Creatinine Ratio 16.7 Glucose 130 H Calcium 9.0 Magnesium 1.6 L Total Bilirubin 0.7 AST 28 ALT 23 Alkaline Phosphatase 77 Troponin I High Sens 24.9 H Total Protein 7.3 Albumin 4.1 Globulin 3.2 Albumin/Globulin Ratio 1.3 Urine Color Urine Appearance Urine pH Ur Specific [place] Urine Protein Urine Glucose (UA) Urine Ketones Urine Blood Urine Nitrite Urine Bilirubin Urine Urobilinogen Ur Leukocyte Esterase Urine Comment Adenovirus (PCR) B. pertussis DNA (PCR) B.parapertussis DNA PCR C. pneumoniae DNA (PCR) Coronavirus OC43 (PCR) Coronavirus HKU1 (PCR) Coronavirus 229E (PCR) SARS-CoV-2 (PCR) Coronavirus NL63 (PCR) Human Metapneumovir PCR Influenza Type A (PCR) Influenza Type B (PCR) M. pneumoniae (PCR) Parainfluenza 1 (PCR) Parainfluenza 2 (PCR) Parainfluenza 3 (PCR) Parainfluenza 4 (PCR) RSV (PCR) Entero/Rhino (PCR) Diagnostic Findings Chest CTA 03/07/25 14:38 Technique: Axial computed tomography images were obtained of the chest after the administration of intravenous contrast according to the CT angiogram protocol Comparison is made to the prior CT dated 09/23/2024 Findings: There is no definite sign of pulmonary embolism. There is an unchanged 4 mm lingular nodule. There is a calcified granuloma in the right upper lobe. There is no sign of pneumonia. There is mild lingular atelectasis. There is no pleural effusion or pneumothorax. There is no sign of pulmonary fibrosis or other diffuse interstitial process. No endobronchial lesion is seen There are small subcentimeter mediastinal lymph nodes. There is no overt mediastinal, hilar, or axillary adenopathy. The thoracic aorta appears unremarkable with no sign of aneurysm or dissection. There is no pericardial effusion There are bilateral breast implants. The visualized upper abdomen appears unremarkable. No fracture is seen. No focal osseous lesion is evident Impression: 1. No definite sign of pulmonary embolism 2. Unchanged small lingular nodule, likely benign. A follow-up chest CT could be obtained in 6 months to ensure continued stability Electronically signed by Klever Resendez 03-07-2025 4:42 PM Chest X-Ray 03/07/25 14:38 XR chest 1V portable HISTORY: 59 years-old Female Dyspnea acute shortness of breath COMPARISON: Chest radiograph 09/23/2024 TECHNIQUE: AP view of the chest FINDINGS: Cardiomediastinal and hilar silhouettes are within normal limits. No pneumothorax, pleural effusion, airspace consolidation or pulmonary edema. Spondylitic spurring of the spine. IMPRESSION: No acute process. ACT 112: Negative or not required by law. The above report was generated using voice recognition software. It may contain grammatical, syntax or spelling errors. Electronically signed by: Rao Gardner M.D. 03/07/2025 2:52 PM Code Status & VTE Plan Code Status Full Supervising Physician Co-Signing Physician Notes Patient seen and examined independently. Discussed with above provider. Patient presents with COPD exacerbation with rhinovirus infection. Plan for budesonide, formoterol nebs, DuoNebs, ceftriaxone and azithromycin. Clotrimazole ointment twice a day for possible tinea pedis. Wean oxygen as tolerated. I have reviewed the advanced practitioner's documentation, and I agree with, and take responsibility for the plan of care I spent a total of 20 minutes coordinating, documenting, and providing care for this patient excluding time spent in the performance of separately billed services. All of the aforementioned completed while collaborating with the assigned advanced practitioner for a full treatment plan
[2025-03-07] MEDS ORDERED: ONDANSETRON INJ 2 MG/ML 2 ML VIAL IV PRN (19:42)
[2025-03-07] MEDS: FORMOTEROL 20 MCG/2 ML VIAL NEB SCH (20:27)
[2025-03-07] MEDS: BUDESONIDE 0.5 MG/2 ML VIAL (PULMICORT) NEB SCH (20:27)
[2025-03-07] MEDS: ALBUT/IPRATROP 3MG/0.5MG NEB 3 ML VIAL NEB SCH (20:27)
[2025-03-07] MEDS: BENZONATATE 100 MG CAPSULE PO SCH (20:47)
[2025-03-07] MEDS: guaiFENesin 600 MG TABCR PO SCH (20:48)
[2025-03-07] MEDS: CLOTRIMAZOLE 1% CR 15 GM TUBE EXT SCH (20:48)
[2025-03-08 06:06] LABS: Hematocrit (blood only) 46.8 % (37.0-47.0); Hemoglobin 15.5 g/dl (12.0-16.0); Mean Corpuscular Hemoglobin 31.8 pg (25.0-34.0); Mean Corpuscular Volume 96.1 fL (80.0-100.0); Platelet Count 166 K/uL (130-400); RDW Standard Deviation 46.0 fL (36.4-46.3); Red Blood Count 4.87 M/uL (4.20-5.40); White Blood Count 12.18 K/ul (4.8-10.8)
[2025-03-08 06:25] LABS: Anion Gap 7.0 (3-11); Blood Urea Nitrogen 11.0 mg/dl (6-23); Calcium 9.5 mg/dl (8.6-10.3); Carbon Dioxide 31.0 mmol/L (21-32); Chloride 101.0 mmol/L (98-107); Creatinine Clr Calc Pharmacy 84.2 ml/min; Glucose 161.0 mg/dl (70-99(Fasting)); Magnesium 2.3 mg/dl (1.7-2.4); Potassium 4.7 mmol/L (3.5-5.1); Sodium 139.0 mmol/L (136-145)
[2025-03-08] MEDS: ACETAMINOPHEN 325 MG TAB PO PRN (09:54)
[2025-03-08] MEDS: AZITHROMYCIN 250 MG TAB PO SCH (09:55)
[2025-03-08] MEDS: ENOXAPARIN INJ 40 MG/0.4 ML SYR SQ SCH (09:56)
[2025-03-08] MEDS: METOPROLOL SUCC 25MG EXT REL TAB PO SCH (09:56)
[2025-03-08] MEDS: cefTRIAXone SODIUM 1,000 MG/50 ML BAG IV SCH (11:00)
--- NOTE | 2025-03-08 11:35 | Hospitalist Progress Note ---
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 She was previously hospitalized in September 2024 for COPD exacerbation. comes in w/ worsening sob/cough/wheezing. Acute COPD exacerbation Acute hypoxic respiratory failure Acute rhinovirus/enterovirus infection - Admitted to med surg with tele - Solumedrol 40 mg IV TID for now, wean to prednisone hopefully in next 1 - 2 days - Supportive care with mucinex, duonebs QID and Q2H prn, Formoterol DuoNeb, perforomist nebs, tessalon pearls - Biofire (+) entero/rhinovirus - Wean O2 prn, does not wear at baseline, currently requiring 6 L via OxyMask. - WBC at time of admission = 13.37 with left shift - CXR reviewed as above personally, no obvious pna - CTA reviewed personally, noted pulmonary nodule - Unchanged small lingular nodule, likely benign noted, will need follow up with screening as outpatient in 6 mo. Pt has been notified of the nodule and need for repeat chest impaging in 6 month. she has been asked to coordinate with her PCP office to set up the test. She voiced understanding. 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 tinea pedis with superimposed cellulitis?, follow Hypomagnesemia - Replaced with mag 1gm IV, 1.6 on admission. Resolved HTN- Cont home meds; metoprolol, was given lopressor 5 mg IV in the ER, ta chycardia is likely induced by multiple DuoNeb treatments, getting better. DVT ppx: teds, scds, lovenox sub q Lines: PIV x 1 FEN/GI: HH CODE: Full code Dispo: From home, likely to remain in the hospital x 1-2 days Admission and Anticipated Discharge Date Admission Date: March 07, 2025 Subjective Patient was seen and examined at bedside. Patient was lying in bed, on 6 L via oxygen mask, NAD, resting comfortably. Patient reports improvement in her cough and shortness of breath, reports being able to eat better, denies nausea and vomiting. Physical Exam Physical Exam: General: awake, alert, no apparent distress, obese white female Head: Normocephalic, atraumatic ENT: PERRL, EOMI, no pharyngeal exudate, mucous membranes moist Chest: Requiring 6 L O2 via OM, tight breath sounds, +barrel chested, + expiratory wheezing heard in all jackson, left > right, no rales or rhonchi Cardiac: Regular rate and rhythm, no murmur, no JVD, normal peripheral pulses, good capillary refill Abdominal: NABS x 4 quadrants, soft, nondistended, nontender to palpation, no rebound or guarding Extremities: Normal inspection, no peripheral edema or erythema, calfs nontender to palpation Psych: Normal mood and affect Skin: bright red erythematous pruritic rash R foot between the great and 2nd toe. Areas of scabbing. Neuro: AAO x 3, strength intact bilaterally and rated 5/5, no motor deficits, speech is clear, no peripheral sensory deficits Results & Data Results & Data Vital Signs (Past 12 Hours) Vital Signs Temp Pulse Pulse Resp BP Pulse Ox O2 Del Method 03/08/25 11:13 36.5 C 92 H 18 116/76 96 Oxymask 03/08/25 10:47 110 H 20 98 Oxymask 03/08/25 08:00 98 H 03/08/25 07:39 36.9 C 100 H 18 142/80 H 92 Oxymask 03/08/25 06:56 118 H 26 H 92 Oxymask 03/08/25 03:56 36.3 C L 106 H 21 159/109 H 95 Oxymask 03/08/25 03:15 107 H 18 93 Oxymask 03/08/25 00:02 117 H 20 95 Oxymask O2 Flow Rate 03/08/25 11:13 6 03/08/25 10:47 6 03/08/25 08:00 03/08/25 07:39 03/08/25 06:56 6 03/08/25 03:56 6 03/08/25 03:15 6 03/08/25 00:02 6
--- NOTE | 2025-03-08 18:12 | Electrocardiogram Report ---
Test Reason : Blood Pressure : */* mmHG Vent. Rate : 129 BPM Atrial Rate : 129 BPM P-R Int : 160 ms QRS Dur : 58 ms QT Int : 298 ms P-R-T Axes : 83 65 65 degrees QTcB Int : 436 ms Poor data quality, interpretation may be adversely affected Sinus tachycardia Biatrial enlargement When compared with ECG of 23-Sep-2024 22:27, Premature atrial complexes are no longer Present Confirmed by Edmundo Felix ([id number]) on 03/08/2025 6:11:58 PM Referred By: Confirmed By: Edmundo Felix
[2025-03-09 06:34] LABS: Hematocrit (blood only) 48.0 % (37.0-47.0); Hemoglobin 15.5 g/dl (12.0-16.0); Mean Corpuscular Hemoglobin 32.0 pg (25.0-34.0); Mean Corpuscular Volume 99.0 fL (80.0-100.0); Platelet Count 189 K/uL (130-400); RDW Standard Deviation 47.3 fL (36.4-46.3); Red Blood Count 4.85 M/uL (4.20-5.40); White Blood Count 16.35 K/ul (4.8-10.8)
[2025-03-09 06:51] LABS: Anion Gap 5.0 (3-11); Blood Urea Nitrogen 21.0 mg/dl (6-23); Calcium 9.6 mg/dl (8.6-10.3); Carbon Dioxide 33.0 mmol/L (21-32); Chloride 100.0 mmol/L (98-107); Creatinine Clr Calc Pharmacy 80.3 ml/min; Glucose 167.0 mg/dl (70-99(Fasting)); Magnesium 2.4 mg/dl (1.7-2.4); Potassium 5.2 mmol/L (3.5-5.1); Sodium 138.0 mmol/L (136-145)
--- NOTE | 2025-03-09 17:04 | Hospitalist Progress Note ---
Date of Service March 09, 2025 Assessment & Plan (1) Acute respiratory failure with hypoxia: (2) Hypomagnesemia: (3) Rhinovirus infection: (4) Enterovirus infection: (5) Acute exacerbation of chronic obstructive airways disease: Plan 59 yo F with PMHX of COPD, hx of PE/DVT, obesity, tobacco use disorder, HTN who presents to the hospital with worsening shortness of breath over the past 24 hours [employer]. She was previously hospitalized in September 2024 for COPD exacerbation. comes in w/ worsening sob/cough/wheezing. Acute COPD exacerbation Acute hypoxic respiratory failure Acute rhinovirus/enterovirus infection - Admitted to med surg with tele - Solumedrol 40 mg IV TID for now, wean to prednisone hopefully in next 1 - 2 days - Supportive care with mucinex, duonebs QID and Q2H prn, Formoterol DuoNeb, perforomist nebs, tessalon pearls - Biofire (+) entero/rhinovirus - Wean O2 prn, does not wear at baseline, currently requiring 6 L via OxyMask. - WBC at time of admission = 13.37 with left shift - CXR reviewed as above personally, no obvious pna - CTA reviewed personally, noted pulmonary nodule - Unchanged small lingular nodule, likely benign noted, will need follow up with screening as outpatient in 6 mo. Pt has been notified of the nodule and need for repeat chest impaging in 6 month. she has been asked to coordinate with her PCP office to set up the test. She voiced understanding. - Given IV azithromycin and ceftriaxone in the ER, will continue Clinically much better with decreasing wheezing and shortness of breath Will continue current management and likely be discharged tomorrow Will change Solu-Medrol to oral prednisone 40 mg from tomorrow Will have a 2 steps O2 saturation tomorrow prior to discharge Tobacco use disorder- smoking 5 to 6 cigarettes daily, cessation encouraged at bedside, denies need for nicotine patch Strongly advised to quit smoking Hx of DVT/PE - no longer on anticoagulation Tinea Pedis R foot-Ceftriaxone likely to help area on pts foot, ? tinea pedis with superimposed cellulitis?, follow Hypomagnesemia - Replaced with mag 1gm IV, 1.6 on admission. Resolved HTN- Cont home meds; metoprolol, was given lopressor 5 mg IV in the ER, tachycardia is likely induced by multiple DuoNeb treatments, getting better. DVT ppx: teds, scds, lovenox sub q Lines: PIV x 1 FEN/GI: HH CODE: Full code Dispo: From home, likely to remain in the hospital x 1-2 days Admission and Anticipated Discharge Date Admission Date: March 07, 2025 Subjective 03/09/2025 The patient was seen and examined in telemetry unit in presence of the She has been feeling much better and is still requiring oxygen when she ambulates Denies any chest pain and/or palpitation No fever and chills Review of Systems Review of Systems: All systems reviewed and are unremarkable except as noted below Physical Exam Physical Exam: Sitting on the bed without any acute distress Constitutional: + ill appearing and + obese Eyes: PERRL, conjunctivae normal, anicteric sclerae ENMT: external ear and nose normal, oropharynx normal Neck: trachea midline, no thyromegaly Respiratory: no respiratory distress Auscultation: + diminished lung sounds, + crackles and + wheezes Cardiovascular: Rate/Rhythm: regular rate and regular rhythm; not tachycardic Heart Sounds: normal S1 and normal S2; no murmur Extremities: no edema Gastrointestinal (Abdomen): Inspection/Auscultation: normal bowel sounds; abdomen not distended Percussion/Palpation: abdomen soft; abdomen nontender Musculoskeletal: No acute arthritis involving any of the joint Neurologic: normal touch/pain/proprioception and moves all extremities; no focal motor deficits Psychiatric: A+Ox3, euthymic affect Lymphatic: no cervical or axillary lymphadenopathy Results & Data Results & Data Vital Signs (Past 12 Hours) Vital Signs Temp Pulse Pulse Pulse Resp BP Pulse Ox 03/09/25 16:25 36.6 C 87 18 138/89 92 03/09/25 15:54 89 03/09/25 14:43 91 H 17 94 03/09/25 11:59 36.7 C 89 18 118/77 95 03/09/25 11:04 03/09/25 11:03 102 H 03/09/25 10:52 112 H 23 03/09/25 08:29 36.4 C L 110 H 18 142/84 H 90 03/09/25 07:17 109 H 19 90 O2 Del Method O2 Flow Rate 03/09/25 16:25 Nasal Cannula 3 03/09/25 15:54 03/09/25 14:43 Oxymask 3 03/09/25 11:59 Oxymask 3 03/09/25 11:04 Oxymask 3 03/09/25 11:03 03/09/25 10:52 Oxymask 3 03/09/25 08:29 Oxymask 3 03/09/25 07:17 Oxymask 3 Laboratory Results Short CBC 03/09/25 Range/Units 06:02 WBC 16.35 H (4.8-10.8) K/ul Hgb 15.5 (12.0-16.0) g/dl Hct 48.0 H (37.0-47.0) % Plt Count 189 (130-400) K/uL BMP 03/09/25 06:02 Sodium 138 Potassium 5.2 H Chloride 100 Carbon Dioxide 33 H BUN 21 Creatinine 0.68 Glucose 167 H Calcium 9.6 Medications Administered Current Inpatient Medications Acetaminophen (Acetaminophen 325 Mg Tab) 650 mg PO Q4H PRN PRN Reason: Moderate Pain (Scale 4, 5, 6) Stop: 04/06/25 19:41 Last Admin: 03/08/25 09:54 Dose: 650 mg Albuterol (Albut/Ipratrop 3mg/0.5mg Neb 3 Ml Vial) 3 ml NEB Q4R [facility]; Protocol Stop: 04/06/25 19:41 Last Admin: 03/09/25 14:42 Dose: 3 ml Azithromycin (Azithromycin 250 Mg Tab) 250 mg PO QAM [facility] Stop: 03/13/25 08:59 Last Admin: 03/09/25 08:55 Dose: 250 mg Benzonatate (Benzonatate 100 Mg Capsule) 100 mg PO TID [facility] Stop: 04/06/25 20:59 Last Admin: 03/09/25 15:45 Dose: Not Given Budesonide (Budesonide 0.5 Mg/2 Ml Vial (Pulmicort)) 0.5 mg NEB BIDR [facility] Stop: 04/06/25 19:41 Last Admin: 03/09/25 07:17 Dose: 0.5 mg Clotrimazole (Clotrimazole 1% Cr 15 Gm Tube) 1 appln EXT BID [facility] Stop: 04/06/25 20:59 Last Admin: 03/09/25 08:56 Dose: 1 appln Enoxaparin Sodium (Enoxaparin Inj 40 Mg/0.4 Ml Syr) 40 mg SQ QAM [facility] Stop: 04/07/25 08:59 Last Admin: 03/09/25 08:56 Dose: 40 mg Formoterol Fumarate (Formoterol 20 Mcg/2 Ml Vial) 20 mcg NEB BIDR [facility] Stop: 04/06/25 19:41 Last Admin: 03/09/25 07:17 Dose: 20 mcg Guaifenesin (Guaifenesin 600 Mg Tabcr) 1,200 mg PO Q12 [facility] Stop: 04/06/25 20:59 Last Admin: 03/09/25 08:55 Dose: 1,200 mg Ceftriaxone Sodium (Rocephin) 1,000 mg in 50 mls @ 100 mls/hr IV Q24H [facility] Stop: 03/13/25 08:59 Last Infusion: 03/09/25 11:01 Dose: Infused Methylprednisolone 40 mg/ (Syringe) 0.64 mls @ 1.5 mls/min IV Q8H [facility] Stop: 04/06/25 19:59 Last Admin: 03/09/25 12:08 Dose: 1.5 mls/min Lisinopril (L[facility]op[facility] 10 Mg Tab) [facility] Stop: 04/07/25 08:59 Last Admin: 03/09/25 08:56 Dose: 10 mg Metoprolol Succinate (Metoprolol Succ 25mg Ext Rel Tab) [facility] Stop: 04/07/25 08:59 Last Admin: 03/09/25 08:55 Dose: 25 mg Ondansetron HCl (Ondansetron Inj 2 Mg/Ml 2 Ml Vial) 4 mg IV Q4H PRN PRN Reason: Nausea And Vomiting Stop: 04/06/25 19:41
[2025-03-10 06:53] LABS: Anion Gap 5.0 (3-11); Blood Urea Nitrogen 29.0 mg/dl (6-23); Calcium 9.2 mg/dl (8.6-10.3); Carbon Dioxide 35.0 mmol/L (21-32); Chloride 99.0 mmol/L (98-107); Creatinine Clr Calc Pharmacy 79.6 ml/min; Glucose 113.0 mg/dl (70-99(Fasting)); Magnesium 2.3 mg/dl (1.7-2.4); Potassium 4.3 mmol/L (3.5-5.1); Sodium 139.0 mmol/L (136-145)
[2025-03-10] MEDS: predniSONE 20 MG TAB PO SCH (09:29)
--- NOTE | 2025-03-10 11:35 | Hospitalist Progress Note ---
Date of Service March 10, 2025 Assessment & Plan (1) Acute respiratory failure with hypoxia: (2) Hypomagnesemia: (3) Rhinovirus infection: (4) Enterovirus infection: (5) Acute exacerbation of chronic obstructive airways disease: Plan 59 yo F with PMHX of COPD, hx of PE/DVT, obesity, tobacco use disorder, HTN who presents to the hospital with worsening shortness of breath over the past 24 hours [employer]. She was previously hospitalized in September 2024 for COPD exacerbation. comes in w/ worsening sob/cough/wheezing. Acute COPD exacerbation Acute hypoxic respiratory failure Acute rhinovirus/enterovirus infection - Admitted to med surg with tele - Solumedrol 40 mg IV TID for now, wean to prednisone hopefully in next 1 - 2 days - Supportive care with mucinex, duonebs QID and Q2H prn, Formoterol DuoNeb, perforomist nebs, tessalon pearls - Biofire (+) entero/rhinovirus - Wean O2 prn, does not wear at baseline, currently requiring 6 L via OxyMask. - WBC at time of admission = 13.37 with left shift - CXR reviewed as above personally, no obvious pna - CTA reviewed personally, noted pulmonary nodule - Unchanged small lingular nodule, likely benign noted, will need follow up with screening as outpatient in 6 mo. Pt has been notified of the nodule and need for repeat chest impaging in 6 month. she has been asked to coordinate with her PCP office to set up the test. She voiced understanding. - Given IV azithromycin and ceftriaxone in the ER, will continue Clinically much better with decreasing wheezing and shortness of breath Will continue current management and likely be discharged tomorrow Will change Solu-Medrol to oral prednisone 40 mg from tomorrow Clinically much better with minimal shortness of breath at rest and cough with phlegm No feverchills send has been ambulating in the room without any significant symptoms She will have 2 steps O2 saturation test today before discharge Tobacco use disorder- smoking 5 to 6 cigarettes daily, cessation encouraged at bedside, denies need for nicotine patch Strongly advised to quit smoking Hx of DVT/PE - no longer on anticoagulation Tinea Pedis R foot-Ceftriaxone likely to help area on pts foot, ? tinea pedis with superimposed cellulitis?, follow Hypomagnesemia - Replaced with mag 1gm IV, 1.6 on admission. Resolved HTN- Cont home meds; metoprolol, was given lopressor 5 mg IV in the ER, tachycardia is likely induced by multiple DuoNeb treatments, getting better. DVT ppx: teds, scds, lovenox sub q Lines: PIV x 1 FEN/GI: HH CODE: Full code Dispo: She will be discharged this afternoon following the 2 steps test Admission and Anticipated Discharge Date Admission Date: March 07, 2025 Subjective 03/09/2025 The patient was seen and examined in telemetry unit in presence of the She has been feeling much better and is still requiring oxygen when she ambulates Denies any chest pain and/or palpitation No fever and chills 03/10/2025 The patient was seen and examined in medical telemetry unit She has productive cough with minimal shortness of breath at rest She has been requiring 2 to 3 L to maintain saturation Denies any chest pain and/or palpitation and no fever no chills She was to be discharged today Review of Systems Review of Systems: All systems reviewed and are unremarkable except as noted below Physical Exam Physical Exam: Sitting on the bed without any acute distress Constitutional: + ill appearing and + obese Eyes: PERRL, conjunctivae normal, anicteric sclerae ENMT: external ear and nose normal, oropharynx normal Neck: trachea midline, no thyromegaly Respiratory: + respiratory distress (Minimal distress at rest) Auscultation: + diminished lung sounds, + crackles and + wheezes Cardiovascular: Rate/Rhythm: regular rate and regular rhythm; not tachycardic Heart Sounds: normal S1 and normal S2; no murmur Extremities: no edema Gastrointestinal (Abdomen): Inspection/Auscultation: normal bowel sounds; abdomen not distended Percussion/Palpation: abdomen soft; abdomen nontender Neurologic: normal touch/pain/proprioception and moves all extremities; no focal motor deficits Psychiatric: A+Ox3, euthymic affect Lymphatic: no cervical or axillary lymphadenopathy Results & Data Results & Data Vital Signs (Past 12 Hours) Vital Signs Temp Pulse Pulse Pulse Pulse Pulse Pulse 03/10/25 10:41 90 03/10/25 10:41 102 H 98 H 92 H 102 H 03/10/25 08:16 36.4 C L 96 H 03/10/25 07:37 99 H 03/10/25 07:33 105 H 03/10/25 04:30 36.5 C 98 H 03/10/25 02:47 102 H 03/10/25 01:35 99 H 03/10/25 01:34 36.5 C 74 03/10/25 01:28 Resp Resp Resp Resp Resp BP Pulse Ox 03/10/25 10:41 20 92 03/10/25 10:41 22 20 20 20 03/10/25 08:16 18 97 03/10/25 07:37 03/10/25 07:33 19 95 03/10/25 04:30 18 137/83 92 03/10/25 02:47 18 95 03/10/25 01:35 03/10/25 01:34 16 144/89 H 90 03/10/25 01:28 Pulse Ox Pulse Ox Pulse Ox Pulse Ox O2 Del Method O2 Flow Rate O2 Flow Rate 03/10/25 10:41 Nasal Cannula 3 03/10/25 10:41 90 88 L 90 86 L 3 03/10/25 08:16 Oxymask 3 03/10/25 07:37 03/10/25 07:33 Oxymask 6 03/10/25 04:30 Oxymask 3 03/10/25 02:47 Oxymask 3 03/10/25 01:35 03/10/25 01:34 Oxymask 3 03/10/25 01:28 Oxymask 3 O2 Flow Rate O2 Flow Rate 03/10/25 10:41 03/10/25 10:41 2 3 03/10/25 08:16 03/10/25 07:37 03/10/25 07:33 03/10/25 04:30 03/10/25 02:47 03/10/25 01:35 03/10/25 01:34 03/10/25 01:28 Laboratory Results BMP 03/10/25 05:45 Sodium 139 Potassium 4.3 Chloride 99 Carbon Dioxide 35 H BUN 29 H Creatinine 0.69 Glucose 113 H Calcium 9.2 Medications Administered Current Inpatient Medications Acetaminophen (Acetaminophen 325 Mg Tab) 650 mg PO Q4H PRN PRN Reason: Moderate Pain (Scale 4, 5, 6) Stop: 04/06/25 19:41 Last Admin: 03/10/25 08:24 Dose: 650 mg Albuterol (Albut/Ipratrop 3mg/0.5mg Neb 3 Ml Vial) 3 ml NEB Q4R [facility]; Protocol Stop: 04/06/25 19:41 Last Admin: 03/10/25 10:41 Dose: 3 ml Azithromycin (Azithromycin 250 Mg Tab) 250 mg PO QAM [facility] Stop: 03/13/25 08:59 Last Admin: 03/10/25 09:29 Dose: 250 mg Benzonatate (Benzonatate 100 Mg Capsule) 100 mg PO TID [facility] Stop: 04/06/25 20:59 Last Admin: 03/10/25 09:36 Dose: 100 mg Budesonide (Budesonide 0.5 Mg/2 Ml Vial (Pulmicort)) 0.5 mg NEB BIDR [facility] Stop: 04/06/25 19:41 Last Admin: 03/10/25 07:32 Dose: 0.5 mg Clotrimazole (Clotrimazole 1% Cr 15 Gm Tube) 1 appln EXT BID [facility] Stop: 04/06/25 20:59 Last Admin: 03/10/25 09:31 Dose: 1 appln Enoxaparin Sodium (Enoxaparin Inj 40 Mg/0.4 Ml Syr) [facility] Stop: 04/07/25 08:59 Last Admin: 03/10/25 09:28 Dose: 40 mg Formoterol Fumarate (Formoterol 20 Mcg/2 Ml Vial) 20 mcg NEB BIDR [facility] Stop: 04/06/25 19:41 Last Admin: 03/10/25 07:34 Dose: 20 mcg Guaifenesin (Guaifenesin 600 Mg Tabcr) 1,200 mg PO Q12 [facility] Stop: 04/06/25 20:59 Last Admin: 03/10/25 09:29 Dose: 1,200 mg Ceftriaxone Sodium (Rocephin) 1,000 mg in 50 mls @ 100 mls/hr IV Q24H [facility] Stop: 03/13/25 08:59 Last Infusion: 03/10/25 10:27 Dose: Infused Lisinopril (Lisinopril 10 Mg Tab) 10 mg PO [facility] Stop: 04/07/25 08:59 Last Admin: 03/10/25 09:29 Dose: 10 mg Metoprolol Succinate (Metoprolol Succ 25mg Ext Rel Tab) 25 mg PO [facility] Stop: 04/07/25 08:59 Last Admin: 03/10/25 09:29 Dose: 25 mg Ondansetron HCl (Ondansetron Inj 2 Mg/Ml 2 Ml Vial) 4 mg IV Q4H PRN PRN Reason: Nausea And Vomiting Stop: 04/06/25 19:41 Prednisone (Prednisone 20 Mg Tab) 40 mg PO DAILY [facility] Stop: 04/09/25 08:59 Last Admin: 03/10/25 09:29 Dose: 40 mg
[2025-03-10 11:57] VITALS: BP 129/83; RESP 18; TEMP 97.9; O2SAT 94
[2025-03-10 14:14] VITALS: PULSE 91
--- NOTE | 2025-03-11 07:38 | Discharge Summary ---
Date of Service March 11, 2025 Admission HPI Per Admitting Provider This is a 59 yo F with PMHX of COPD, hx of PE/DVT, obesity, tobacco use disorder, HTN who presents to the hospital with worsening shortness of breath over the past 24 hours. She was previously hospitalized in September 2024 for COPD exacerbation. Patient reports that her symptoms started about 48 hours ago, she was at a [employer] on Wednesday evening and a large group of people, started to feel ill on Wednesday morning. States that this started with a simple cough. She had started taking DayQuil, Mucinex, using a Vicks vapor rub, and other supportive care with her as needed inhalers which she has at home however cough seemed to progress. She noted sputum production which was white last evening. She had a coughing fit that prompted a episode of vomiting last evening as well. Denies any fevers, chills or sweats. She has difficulty ambulating, participating in ADLs due to progressive shortness of breath with minimal exertion. Pt called 911 at home, upon EMS arrival to her home she was found to be hypoxic in the 70s. EMS provided solumedrol 125 mcg IV, was given duoneb treatment. Once in the ER,was given another 15 minute duoneb treatment, and then an hour long duoneb treatment, along with 1 gm IV mag. Currently pt is on 5 L O2, o2 sats 93%. Seated, speaking in long sentances, she is mildly dyspneic during my visit in the ER. Patient is still smoking 5 to 6 cigarettes daily. Denies any supplemental O2 at baseline. Occasional alcohol use. no illicit drug use. Admission Exam Per Admitting Provider Physical Exam: General: awake, alert, no apparent distress, obese white female Head: Normocephalic, atraumatic ENT: PERRL, EOMI, no pharyngeal exudate, mucous membranes moist Chest: Requiring 5 L O2 via NC, tight breath sounds, +barrel chested, + expiratory wheezing heard in all jackson, left > right, no rales or rhonchi Cardiac: Regular rate and rhythm, no murmur, no JVD, normal peripheral pulses, good capillary refill Abdominal: NABS x 4 quadrants, soft, nondistended, nontender to palpation, no rebound or guarding Extremities: Normal inspection, no peripheral edema or erythema, calfs nontender to palpation Psych: Normal mood and affect Skin: bright red erythematous pruritic rash R foot between the great and 2nd toe. Areas of scabbing. Neuro: AAO x 3, strength intact bilaterally and rated 5/5, no motor deficits, speech is clear, no peripheral sensory deficits Principal Diagnosis COPD exacerbation Discharge Exam Sitting on the bed without any acute distress Constitutional + ill appearing and + obese Eyes PERRL, conjunctivae normal, anicteric sclerae ENMT external ear and nose normal, oropharynx normal Neck trachea midline, no thyromegaly Respiratory + respiratory distress (Minimal distress at rest) Auscultation: + diminished lung sounds, + crackles and + wheezes Cardiovascular Rate/Rhythm: regular rate and regular rhythm; not tachycardic Heart Sounds: normal S1 and normal S2; no murmur Extremities: no edema Gastrointestinal (Abdomen) Inspection/Auscultation: normal bowel sounds; abdomen not distended Percussion/Palpation: abdomen soft; abdomen nontender Neurologic normal touch/pain/proprioception and moves all extremities; no focal motor deficits Psychiatric A+Ox3, euthymic affect Lymphatic no cervical or axillary lymphadenopathy Discharge Data Allergies Allergy/AdvReac Type Severity Reaction Status Date / Time latex Allergy Unknown Unknown Verified 03/07/25 16:35 codeine AdvReac Intermediate N/V, HEARS Verified 03/07/25 16:35 VIOCES Consultations 03/07/25 16:45 ED Decision to Admit Stat Ordered Studies 03/07/25 14:38 CT for pulmonary embolism PE [CT angio chest PE protocol] Stat Hospital Course (1) Acute respiratory failure with hypoxia: (2) Hypomagnesemia: (3) Rhinovirus infection: (4) Enterovirus infection: (5) Acute exacerbation of chronic obstructive airways disease: Plan 59 yo F with PMHX of COPD, hx of PE/DVT, obesity, tobacco use disorder, HTN who presents to the hospital with worsening shortness of breath over the past 24 hours [employer]. She was previously hospitalized in September 2024 for COPD exacerbation. comes in w/ worsening sob/cough/wheezing. Acute COPD exacerbation Acute hypoxic respiratory failure Acute rhinovirus/enterovirus infection - Admitted to med surg with tele - Solumedrol 40 mg IV TID for now, wean to prednisone hopefully in next 1 - 2 days - Supportive care with mucinex, duonebs QID and Q2H prn, Formoterol DuoNeb, perforomist tito riley - Biofire (+) entero/rhinovirus - Wean O2 prn, does not wear at baseline, currently requiring 6 L via OxyMask. - WBC at time of admission = 13.37 with left shift - CXR reviewed as above personally, no obvious pna - CTA reviewed personally, noted pulmonary nodule - Unchanged small lingular nodule, likely benign noted, will need follow up with screening as outpatient in 6 mo. Pt has been notified of the nodule and need for repeat chest impaging in 6 month. she has been asked to coordinate with her PCP office to set up the test. She voiced understanding. - Given IV azithromycin and ceftriaxone in the ER, will continue Clinically much better with decreasing wheezing and shortness of breath Will continue current management and likely be discharged tomorrow Will change Solu-Medrol to oral prednisone 40 mg from tomorrow Clinically much better with minimal shortness of breath at rest and cough with phlegm No feverchills send has been ambulating in the room without any significant symptoms She will have 2 steps O2 saturation test today before discharge Tobacco use disorder- smoking 5 to 6 cigarettes daily, cessation encouraged at bedside, denies need for nicotine patch Strongly advised to quit smoking Hx of DVT/PE - no longer on anticoagulation Tinea Pedis R foot-Ceftriaxone likely to help area on pts foot, ? tinea pedis with superimposed cellulitis?, follow Hypomagnesemia - Replaced with mag 1gm IV, 1.6 on admission. Resolved HTN- Cont home meds; metoprolol, was given lopressor 5 mg IV in the ER, tachycardia is likely induced by multiple DuoNeb treatments, getting better. DVT ppx: teds, scds, lovenox sub q Lines: PIV x 1 FEN/GI: HH CODE: Full code Dispo: She will be discharged this afternoon following the 2 steps test Total Time Total Time Spent Total Time Spent (In Minutes): 40 minutes Discharge Plan Discharge Items Patient Disposition: Home - Self-Care Reason For Visit: COPD EXACERBATION Discharge Diagnosis: COPD exacerbation Condition on Discharge: Fair Activity: Resume your previous activity Non-emergency contact: Primary Care Provider Call non-emergency contact if: you have any medication questions and your symptoms worsen Follow-up/Referrals: Pipo Baird MD [Primary Care Provider] - (Your doctor's office will give you a call with an appointment within 7 days ) Diet: Heart Healthy Addtl Attending Provider Instructions: Please take precautions to avoid falls Strongly advised to quit smoking Finish the dose of antibiotic Take your medications as advised Please keep appointments with your healthcare provider You will need to have a repeat CT scan of the chest to monitor lung nodule You will need to take oxygen at @ 2 L/min at rest and 3 L/min via nasal cannula with ambulation. Pending Studies at Discharge: No Stand-Alone Forms: My [facility], Smoking Cessation Medications and DC Order Prescriptions: New azithromycin 250 mg Tablet 250 mg PO QAM Qty: 2 0RF benzonatate 100 mg Capsule 100 mg PO TID Qty: 3 0RF prednisone 10 mg tablet 10 mg PO UD Qty: 30 0RF Rx Instructions: 4 tabs p.o. daily for 3 days, 3 tabs daily for 3 days, 2 tabs daily for 3 days and then 1 tab daily for 3 days Continued lisinopril 10 mg tablet 10 mg PO QAM metoprolol succinate 25 mg tablet extended release 24 hr 25 mg PO QAM albuterol sulfate 90 mcg/actuation HFA aerosol inhaler 2 puff INHALATION Q6H PRN (Reason: sob) ipratropium-albuterol 0.5 mg-3 mg(2.5 mg base)/3 mL solution for nebulization 3 ml INHALATION Q6 PRN (Reason: Wheezing) fluticasone propion-salmeterol 250-50 mcg/dose blister with device 1 puff Inhalation BID Qty: 1 0RF Triple Antibiotic 3.5mg-400 unit- 5,000 unit/gram Ointment 1 applic TOPICAL BID PRN (Reason: SKIN WOUND DIRECTED.) miconazole nitrate [Antifungal (miconazole)] 2 % Cream 1 applic TOPICAL DIRECTED Vicks DayQuil Cold-Flu Relief 5-10-325 mg Capsule 1 cap PO DIRECTED PRN (Reason: COLD/FLU SYMPTOMS) guaifenesin [Mucinex] 600 mg Tablet Extended Release 12hr 600 mg PO Q12H PRN (Reason: Congestion) Discharge Orders: Discharge Order (Routine); Ordered 03/10/25 Ordered By: Delmar Espinoza Admission Data Admit Date/Time: 03/07/25 17:04 Attending Provider: Delmar Espinoza Admit Provider: Jono Saunders Primary Care Provider: Pipo Baird Other Providers: Jono Saunders; Julius Lowery Other Interventions: Discharge Summary Assessment (RN) Last Done: 03/10/25 14:13
== END 2025-03-10 15:04 | disposition home or self-care (01) | DRG 189 ==
LOC: ED 14:25 → EDINP 17:04 → SUATTDRO 17:04 → 4W 21:50 → 2W 03-10 01:49